=== PATIENT | female | born 1985 | race African-American/Black ===

== ENCOUNTER 2020-08-23 17:50 | Emergency (ER) | payer OTHER, SELFPAY ==
[2020-08-23 18:00] VITALS: BP 139/99; PULSE 112; RESP 16; O2SAT 100
--- NOTE | 2020-08-23 18:10 | PC.NURSE ---
in br to obtain ua spec.
--- NOTE | 2020-08-23 18:14 | ED.FEMALEGU ---
HPI - Female Genitourinary General Chief complaint: Nausea/Vomiting/Diarrhea Stated complaint: Nausea,Headahe Time Seen by Provider: 08/23/20 18:14 Source: patient Mode of arrival: ambulatory Limitations: no limitations History of Present Illness HPI Narrative: Jillian Boles is a 35-year-old female with PMH of HTN who comes to [facility] for determination of as she is taken 2 home tests and one positive or negative she is feeling nauseated x1 week. Patient denies fever denies vomiting denies diarrhea, she is a G3,P3; states she is having some discharge from her nipples Related Data Home Medications Medication Instructions Recorded Confirmed metoprolol tartrate 08/23/20 Allergies Allergy/AdvReac Type Severity Reaction Status Date / Time No Known Allergies Allergy Unverified 09/07/17 10:13 Review of Systems Review of Systems: Narrative: CONSTITUTIONAL: Denies fever, chills, sweats. EYES: Denies visual changes, redness, discharge. ENT: Denies rhinorrhea, congestion, sore throat, otalgia. CARDIOVASCULAR: Denies chest pain, palpitations, edema. RESPIRATORY: Denies dyspnea, wheezing, cough GASTROINTESTINAL: Denies abdominal pain, has nausea, no vomiting, diarrhea. GENITOURINARY: Denies dysuria, hematuria, abnormal discharge SKIN: Denies rash or itching. NEUROLOGIC: Denies numbness, or focal weakness. PSYCHIATRIC: Denies anxiety or depression. [facility] Past Medical History Medical History Hypertension Family History Family History (Updated 08/23/20 @ 18:27 by Cat Jain CNP) Mother Hypertension Social History Social History (Updated 08/23/20 @ 18:27 by Cat Jain CNP) Smoking status: Never smoker Alcohol intake: never Comments At time of signature, I agree with nursing past medical, surgical, social and family history. There is no relevant family history pertinent to the presenting complaint. Exam Narrative: Exam Narrative: GENERAL: This is a well-nourished, well-developed patient, in mild distress. HEAD: normocephalic, atraumatic. EYES: Sclera clear/white. Vision is grossly intact. EARS: External ears normal, Hearing grossly intact. NOSE: External nose normal without nasal discharge, nares without redness, no rhinorrhea. THROAT: Mucous membranes moist, NECK: Neck supple, CARDIOVASCULAR: Regular rate and rhythm without murmurs, gallops, or rubs. RESPIRATORY: Clear to auscultation. Breath sounds equal bilaterally. No wheezes, rales, or rhonchi. GASTROINTESTINAL: Abdomen soft SKIN: warm, intact with no suspicious lesions or rash, good texture and turgor. NEURO: awake, alert, and oriented to person, place and time. There were no obvious focal neurologic abnormalities. Steady gait EXTREMITIES: Normal range of motion. BACK: Nontender without deformity Course Course Emergency Course: Patient comes for assessment of nausea x1 week with discharge from nipples test is negative as is her UA Patient given Zofran at discharge but told to follow-up with TECHNOLOGY ADVISOR or primary care physician for differential diagnosis of endocrine versus breast cancer Vital Signs Vital signs: Vital Signs Pulse Rate 112 H 08/23/20 18:00 Respiratory Rate 16 08/23/20 18:00 Blood Pressure 139/99 H 08/23/20 18:00 Pulse Oximetry 100 08/23/20 18:00 Pulse Rate 112 H 08/23/20 18:00 Respiratory Rate 16 08/23/20 18:00 Blood Pressure 139/99 H 08/23/20 18:00 Pulse Oximetry 100 08/23/20 18:00 MDM - Female Genitourinary Differential Diagnosis Differential diagnosis: Likely urinary tract infection, cervicitis, cystitis and other () Lab Data Labs: UCG Bedside Result Negative Reference Range: Negative Urine Glucose Negative Reference Range: Negative Urine Bilir
== END 2020-08-23 18:40 | disposition home or self-care (01) ==
PROVIDERS: Emergency Provider Nurse Practitioner
DX: Z32.02 Encounter for pregnancy test, result negative (principal); R11.0 Nausea; I10 Essential (primary) hypertension
CPT/HCPCS: 81003; 81025; 99213; G0463

== ENCOUNTER 2022-01-26 13:07 | Emergency (ER) | payer OTHER, SELFPAY ==
[2022-01-26 13:15] VITALS: BP 127/96; PULSE 97; RESP 18; TEMP 36.7; O2SAT 100
--- NOTE | 2022-01-26 13:27 | ED.GENADULT ---
HPI - General Adult General Chief complaint: Unspecified Stated complaint: [place]tox Cramp Time Seen by Provider: 01/26/22 13:27 Source: patient Mode of arrival: ambulatory Limitations: no limitations History of Present Illness HPI narrative: 36 yo F presents with c/o several years of spasming, cramping pain to vaginal area extending to rectum and also lower back around tailbone area. Recently saw a new STOCK OR DELIVERY CLERK who ordered a pelvic ultrasound for her that she is getting in two days. States that doesn't help to see what is wrong with my rectal area . Reports no pain with sitting. Spasms/cramping come on unexepectedly and cannot reproduce them on her own. No pain with intercourse. BMs normal. No pain with BM. No pain at this time. hx of 3 csections. Thinks pain started after last c section. Has discussed this with her PCP who prescribed her a liquid medicine but her sister who is a nurse told her not to take it because it would not do anything for her. pt ambulatory with steady gait. all systems reviewed and negative except as noted above. Related Data Home Medications Medication Instructions Recorded Confirmed metoprolol tartrate 25 mg tablet 25 mg PO BID 08/23/20 01/26/22 magnesium oxide 400 mg (241.3 mg 400 mg DAILY 01/26/22 01/26/22 magnesium) tablet Allergies Allergy/AdvReac Type Severity Reaction Status Date / Time No Known Allergies Allergy Verified 01/26/22 13:22 Review of Systems Review of Systems: CONSTITUTIONAL: Denies fever, chills, or sweats. EYES: Denies visual changes, redness, or discharge. ENT: Denies rhinorrhea, congestion, sore throat, or otalgia. CARDIOVASCULAR: Denies chest pain, palpitations, or edema. RESPIRATORY: Denies cough or dyspnea. GASTROINTESTINAL: Denies abdominal pain, nausea, vomiting, or diarrhea. GENITOURINARY: Denies dysuria or hematuria. SKIN: Denies rash or itching. MUSCULOSKELETAL: Denies back pain, joint pain, or myalgia. Reports spasm/cramping to perineal and rectal area. NEUROLOGIC: Denies headache, numbness, or weakness. PSYCHIATRIC: Denies anxiety or depression. All other systems reviewed are negative, except as documented in HPI. [facility] Past Medical History Medical History Hypertension Family History Family History (Updated 08/23/20 @ 18:27 by Cat Jain CNP) Mother Hypertension Social History Social History (Updated 08/23/20 @ 18:27 by Cat Jain CNP) Smoking status: Never smoker Alcohol intake: never Comments At time of signature, agree with nursing past medical, surgical, social and family history. There is no relevant family history pertinent to the presenting complaint. Exam Narrative: GENERAL: This is a well-nourished, well-developed patient, in no apparent distress. HEAD: normocephalic, atraumatic. EYES: PERRL. Sclera clear/white. Vision is grossly intact. EARS: External ears normal NOSE: External nose normal NECK: Neck supple, non-tender without lymphadenopathy, masses or thyromegaly. CARDIOVASCULAR: Regular rate and rhythm without murmurs, gallops, or rubs. RESPIRATORY: Clear to auscultation. Breath sounds equal bilaterally. No wheezes, rales, or rhonchi. GASTROINTESTINAL: Abdomen soft, non-tender, nondistended. Bowel sounds are active. No hepato-splenomegaly, or palpable masses. No guarding. No external hemorrhoids noted. No tenderness around rectum on palpation. No fluctuance, erythema concerning for abscess. SKIN: warm, Dry, intact with no suspicious lesions or rash, good texture and turgor. NEURO: awake, alert, and oriented to person, place and time. There were no obvious focal neurologic abnormalities. EXTREMITIES: No joint tenderness, effusion, or edema noted. Course Course Level of Care: Express Care Visit Vital Signs Vital signs: Vital Signs Temperature 36.7 C 01/26/22 13:15 Pulse Rate 97 01/26/22 13:15 Respiratory Rate 18 01/26/22 13:15 Blood Press
== END 2022-01-26 13:45 | disposition home or self-care (01) ==
PROVIDERS: Emergency Provider Nurse Practitioner Family; PCP Internal Medicine Infectious Disease
DX: K62.89 Other specified diseases of anus and rectum (principal); M54.50 Low back pain, unspecified; I10 Essential (primary) hypertension
CPT/HCPCS: 99213; G0463

== ENCOUNTER 2023-01-20 12:10 | Emergency (ER) | payer OTHER, SELFPAY ==
[2023-01-20 12:13] VITALS: BP 151/90; PULSE 103; RESP 16; TEMP 37.1; O2SAT 99
--- NOTE | 2023-01-20 14:36 | PC.NURSE ---
pt called for room, pt not in lobby
== END 2023-01-20 14:36 | disposition left against medical advice (07) ==
LOC: ANHED 14:38
PROVIDERS: PCP Internal Medicine Infectious Disease
DX: R10.9 Unspecified abdominal pain (principal)
CPT/HCPCS: 99199

== ENCOUNTER 2023-02-02 11:51 | Emergency (ER) | payer OTHER, SELFPAY ==
[2023-02-02 12:12] VITALS: BP 131/89; PULSE 85; RESP 16; TEMP 36.6; O2SAT 100
--- NOTE | 2023-02-02 12:13 | ED.URI ---
HPI - URI/Sore Throat General Chief Complaint: Upper Respiratory Infection Stated Complaint: chest pain, throat pain, head pain Source: patient and RN notes reviewed History of Present Illness HPI Narrative: 37 yo F presents to urgent care with complaints of sore throat, CUI, and fatigue x 3 days. Pt reports nausea, denies any vomiting and reports a little diarrhea. Pt states she will feel short of breath because of her throat, stating it just hurts when she breathes in. Denies any chest pain, ear pain, or abdominal pain. Related Data Home Medications Medication Instructions Recorded Confirmed metoprolol tartrate 25 mg tablet 25 mg PO BID 08/23/20 01/26/22 magnesium oxide 400 mg (241.3 mg 400 mg DAILY 01/26/22 02/02/23 magnesium) tablet Allergies Allergy/AdvReac Type Severity Reaction Status Date / Time No Known Allergies Allergy Verified 01/26/22 13:22 Review of Systems Review of Systems: Pertinent positives and pertinent negatives per HPI. [facility] Past Medical History Medical History Hypertension Family History Family History (Updated 08/23/20 @ 18:27 by Cat Jain, KHADRA) Mother Hypertension Social History Social History (Updated 08/23/20 @ 18:27 by Cat Jain, KHADRA) Smoking status: Never smoker Alcohol intake: never Comments At the time of my signature, I reviewed and agree with the nursing past medical, surgical, social, and family history. There is no relevant family history pertinent to the patient complaint. Exam Narrative: GENERAL: This is a well-nourished, well-developed patient, in no apparent distress. HEAD: normocephalic, atraumatic. EYES: Sclera clear/white. Vision is grossly intact. EARS: External ears normal, auditory canals clear and without drainage. Hearing grossly intact. NOSE: External nose normal with no obvious nasal discharge, nares without redness, no rhinorrhea. THROAT: Mucous membranes moist, posterior pharynx erythemic. NECK: Neck supple, non-tender without lymphadenopathy, masses or thyromegaly. CARDIOVASCULAR: Regular rate and rhythm without murmurs, gallops, or rubs. RESPIRATORY: Clear to auscultation. Breath sounds equal bilaterally. No wheezes, rales, or rhonchi. GASTROINTESTINAL: Abdomen soft, non-tender, nondistended. Bowel sounds are active. No hepato-splenomegaly, or palpable masses. No guarding. SKIN: warm, intact with no suspicious lesions or rash, good texture and turgor. NEURO: awake, alert, and oriented to person, place and time. There were no obvious focal neurologic abnormalities. Course Course Level of Care: Express Care Visit Vital Signs Vital signs: Vital Signs Temperature 97.8 F 02/02/23 12:12 Pulse Rate 85 02/02/23 12:12 Respiratory Rate 16 02/02/23 12:12 Blood Pressure 131/89 02/02/23 12:12 Pulse Oximetry 100 02/02/23 12:12 Oxygen Delivery Room Air 02/02/23 12:12 Temperature 97.8 F 02/02/23 12:12 Pulse Rate 85 02/02/23 12:12 Respiratory Rate 16 02/02/23 12:12 Blood Pressure 131/89 02/02/23 12:12 Pulse Oximetry 100 02/02/23 12:12 Oxygen Delivery Room Air 02/02/23 12:12 Reviewed MDM - URI/Sore Throat MDM Narrative Medical decision making narrative: Rapid strep is negative in the office; however we will send to the lab for confirmation; there is a small percentage chance that it can come back positive; if it is, we will call you in 2-3days; and your prescription will be call in to your pharmacy. However, there is NO indication for antibiotic at this time. -Increase your fluids and Vitamin C. -Oral rinses such as: Salt water gargles and/or may use topical anesthetic (eg. Chloraseptic spray) or lozenges to relieve dryness or throat pain. -Take tylenol and ibuprofen as needed for pain and fever as directed. -Frequent hand washing or hand director group sales is one of the best ways to prevent spread of infection. -F
== END 2023-02-02 12:35 | disposition home or self-care (01) ==
PROVIDERS: Emergency Provider Nurse Practitioner Family; PCP Internal Medicine Infectious Disease
DX: B34.9 Viral infection, unspecified (principal); J02.9 Acute pharyngitis, unspecified; I10 Essential (primary) hypertension
CPT/HCPCS: 87081; 87880; 99213; G0463

== ENCOUNTER 2023-07-07 10:59 | Emergency (ER) | payer OTHER, SELFPAY ==
--- NOTE | ~2023-07-07 | XR_ITS ---
EXAMINATION: XR lumbar spine 2-3V DATE: 07/07/2023 12:46 INDICATION: Right-sided low back pain post fall TECHNIQUE: Anteroposterior and lateral views of the lumbar spine, and cone-down lateral view of the l umbosacral junction were obtained. COMPARISON: None. FINDINGS: 4 degrees thoracolumbar dextrocurvature. Sagittal alignment is normal. Partially lumbarized S1 segmen t with 5 more cephalad nonrib-bearing lumbar segments. Vertebral body heights are normal. No fracture s identified. Disc spaces are normal. No significant facet, sacroiliac or hip osteoarthritis apprecia selvin. A few phleboliths in the pelvis. IMPRESSION: 1. Negligible thoracolumbar dextrocurvature is otherwise unremarkable lumbar spine radiographs. Reviewed, dictated and finalized at location A. [facility] IMPRESSION: 1. Negligible thoracolumbar dextrocurvature is otherwise unremarkable lumbar sp ine radiographs.
--- NOTE | 2023-07-07 11:01 | ED.FALL ---
HPI - Fall General Chief Complaint: Back Pain/Injury Stated Complaint: Fall Time Seen by Provider: 07/07/23 11:00 Source: patient Mode of arrival: ambulatory Limitations: no limitations History of Present Illness HPI Narrative: Jillian is a 37-year-old female patient presenting to the clinic today with complaints of a ground level fall slipping on ice on Wednesday and fell onto her back. She is reporting right lower back pain. States that she is having some muscle spasms as well. Denies any blood in her urine. Denies any her head or any loss of consciousness or neck pain. No saddle anesthesia or loss of bowel or bladder. Related Data Home Medications Medication Instructions Recorded Confirmed metoprolol tartrate 25 mg tablet 25 mg PO BID 08/23/20 01/26/22 magnesium oxide 400 mg (241.3 mg 400 mg DAILY 01/26/22 02/02/23 magnesium) tablet Allergies Allergy/AdvReac Type Severity Reaction Status Date / Time No Known Allergies Allergy Verified 01/26/22 13:22 Review of Systems Review of Systems: Pertinent positives per HPI. Patient denies any fever, chills, rash, headache, visual changes, dizziness, cough, runny nose, sore throat, shortness of breath, chest pain, palpitations, nausea, vomiting, diarrhea, constipation, abdominal pain, or any urinary issues. [facility] Past Medical History Medical History Hypertension Family History Family History Mother Hypertension Social History Social History Smoking status: Never smoker Alcohol intake: never Comments At the time of my signature, I reviewed and agree with the nursing past medical, surgical, social, and family history. There is no relevant family history pertinent to the patient complaint. Exam Narrative: General: Well-developed, well nourished, in no apparent distress Head: Normocephalic, atraumatic. Cardio: Regular rate and rhythm, s1 and s2 normal, no murmur appreciated. Resp: Clear to auscultation bilaterally, no rhonchi, rales, wheezing or rubs. Abdomen: Soft, pliable, bowel sounds present in all quadrants, non-tender to palpation, no organomegly, no CVAT tenderness. Musculoskeletal: No deformity, tender to palpation over the right lower back, negative straight leg test bilaterally, patellar reflexes 2+ bilaterally, grossly normal range of motion, muscle strength strong and equal, peripheral pulse strong, no edema, no cyanosis, normal gait and station Course Course Emergency Course: Portions of this record may have been created with voice recognition software. Level of Care: Express Care Visit Vital Signs Vital signs: Vital Signs Temperature 36.7 C 07/07/23 11:59 Pulse Rate 93 07/07/23 11:59 Respiratory Rate 16 07/07/23 11:59 Blood Pressure 143/93 H 07/07/23 11:59 Pulse Oximetry 100 07/07/23 11:59 Oxygen Delivery Room Air 07/07/23 11:59 Temperature 36.7 C 07/07/23 11:59 Pulse Rate 93 07/07/23 11:59 Respiratory Rate 16 07/07/23 11:59 Blood Pressure 143/93 H 07/07/23 11:59 Pulse Oximetry 100 07/07/23 11:59 Oxygen Delivery Room Air 07/07/23 11:59 Vital signs reviewed MDM - Fall MDM Narrative Medical decision making narrative: At the time of visit patient is resting comfortably on the exam table. Patient appears to be nontoxic. Diagnostics: X-rays of lumbar spine negative Labs: UA positive for protein, nitrates, and blood. Patient does report some lower abdominal discomfort. Will treat for urinary tract infection. Plan: Prescription for Macrobid was sent to the pharmacy to treat UTI, x-ray was negative for any sign of fracture or malalignment. Will send prescription for naproxen and patient has Robaxin home that she may take. Supportive measures were discussed with the patient and they voiced unders
[2023-07-07 11:59] VITALS: BP 143/93; PULSE 93; RESP 16; TEMP 36.7; O2SAT 100
== END 2023-07-07 13:24 | disposition home or self-care (01) ==
PROVIDERS: Emergency Provider Nurse Practitioner Family; PCP Internal Medicine Infectious Disease
DX: N39.0 Urinary tract infection, site not specified (principal); B96.20 Unspecified Escherichia coli [E. coli] as the cause of diseases classified elsewhere; M54.50 Low back pain, unspecified; W00.0XXA Fall on same level due to ice and snow, initial encounter; I10 Essential (primary) hypertension
CPT/HCPCS: 72100; 81003; 81025; 87077; 87086; 87186; 99213; G0463

== ENCOUNTER 2024-07-10 14:03 | Emergency (ER) | payer MEDICAID, SELFPAY ==
--- NOTE | ~2024-07-10 | US_ITS ---
EXAMINATION: US OB <=14 wk fetus w TV DATE: 07/10/2024 16:45 INDICATION: . Abdominal cramping. TECHNIQUE: Real-time transabdominal and transvaginal pelvic ultrasound was performed. COMPARISON: None. FINDINGS: TRANSABDOMINAL ULTRASOUND: The uterus measures 9.7 x 5.2 x 6.5 cm. TRANSVAGINAL ULTRASOUND: There is an intrauterine gestational sac. A yolk sac is identified. The fet al crown rump length measures 6 mm, which correlates with an estimated gestational age of 6 weeks and 3 day(s) (+/-) 4 day(s). heart motion is identified measuring 82 beats per minute (bpm) by M-m ode Doppler. The right ovary measures 3.0 x 2.3 x 2.6 cm. The left ovary is not visualized. There is no free fluid in the pelvis. IMPRESSION: 1. Single living intrauterine gestation with estimated date of delivery of 03/11/2025. 2. heart rate of 82 bpm. Reviewed, dictated and finalized at location A. EN PRINTING PRESS OPERATOR IMPRESSION: 1. Single living intrauterine gestation with estimated date of delivery of 02/13. 2. heart rate of 82 bpm.
[2024-07-10 14:22] VITALS: BP 129/84; PULSE 87; RESP 20; TEMP 36.5
--- OUTSIDE RECORDS SUMMARY | 2024-07-10 14:49 | XMS_ITS | CONTINUITY OF CARE DOCUMENT ---
Author Name ariane thakkar Address Unknown Organization [facility] Address [address] [place] [address] Phone [phone] Care Team Providers Care Online Journalist Name Role Phone Laureen Noble MD Unavailable [phone] THALIA MCDONALD MD Unavailable [phone] THALIA MCDONALD MD Unavailable [phone] PROBLEMS Condition Status Date Provider Notes Family History of Hypertension: completed - Sa leatha Noble MD Sinus tachycardia active Jam Adamson MD HTN essential active Jam Adamson MD Shortness of breath active Laureen quach MD Palpitations active Laureen Noble MD Fatigue active Laureen Noble MD Syncope active Laureen Noble MD Dizziness active Laureen Noble MD Back pain active Laureen Noble MD Sleep disorder active Sae Segura ENCOUNTERS Date Type Provider Location Encounter Diag nosis - In-person encounter Office Visit Laureen Noble MD [facility] - In-person encounter Office Visit Laureen Noble MD [facility] Sleep disorder - In-person encounter Office Visit Laureen Noble MD [facility] - In-person encounter Office Visit Laureen Noble MD [facility] - In-person encounter Office Visit Laureen Noble MD [facility] Back pain - In-person encounter Office Visit Laureen Noble MD [facility] Family History of Hypertension:Shortness of breathPalpitationsFatigueSyncopeDizziness - In-person encounter Office Visit Jam Adamson MD [facility] Sinus tachycardiaHTN essential VITAL SIGNS Date Observation Value Provider Body Mass Index (Ratio) 24.09 kg/m2 German Noble MD blood pressure, diastolic -1 mm[Hg] Aneta nkLogic blood pressure, systolic 131 mm[Hg] Hannah kLogic blood pressure, diastolic 94 mm[Hg] Va lertylor Mak blood pressure, systolic 131 mm[Hg] Simi joseph Obdulio weight E&M 136 [lb_av] Charis Obdulio pulse rate 93 /min Charis Obdulio respiratory rate E&M 16 /min Charis Obdulio oxygen saturation, oximetry 99 % Charis Obdulio blood pressure, cuff size large Va lerie Obdulio height E&M 63 [in_i] Charis Obdulio Body Mass Index (Ratio) 24.09 kg/m2 Sae Segura blood pressure, diastolic 93 mm[Hg] Li nkLogic blood pressure, systolic 134 mm[Hg] Hannah kLogic blood pressure, cuff size regular Ja rret blood pressure, diastolic 93 mm[Hg] Ja rret blood pressure, systolic 134 mm[Hg] Jar ret pulse rate 91 /min Lizandro y oxygen saturation, oximetry 95 % Lizandro respiratory rate E&M 14 /min Lizandro weight E&M 136 [lb_av] Lizandro y height E&M 63 [in_i] Lizandro y Body Mass Index (Ratio) 24.27 kg/m2 German Noble MD blood pressure, diastolic 80 mm[Hg] Li nkLogic blood pressure, systolic 114 mm[Hg] Hannah kLogic blood pressure, diastolic 80 mm[Hg] Ca therine Falcon blood pressure, systolic 114 mm[Hg] Cat herine Falcon oxygen saturation, oximetry 90 % Madonna Falcon pulse rate 91 /min Madonna Falcon respiratory rate E&M 16 /min Catheri ne Leopoldo weight E&M 137 [lb_av] Madonna Falcon blood pressure, cuff size large Ca therine Falcon height E&M 63 [in_i] Madonna Falcon Body Mass Index (Ratio) 20.94 kg/m2 Will jayramesh Batista blood pressure, diastolic 85 mm[Hg] Ming Jacobs blood pressure, systolic 126 mm[Hg] Chelly Jacobs oxygen saturation, oximetry 97 % Figueroa Jacobs respiratory rate E&M 18 /min Salinas Jacobs pulse rate 105 /min Figueroa Juárez nsginger weight E&M 118.2 [lb_av] Figueroa cohenon height E&M 63 [in_i] Figueroa garciaon blood pressure, diastolic 88 mm[Hg] Me epps Aditya blood pressure, systolic 126 mm[Hg] Natalie la nena Burgess pulse rate 84 /min Adri Burgess oxygen saturation, oximetry 95 % Adri Burgess respiratory rate E&M 15 /min Adri [facility] Body Mass Index (Ratio) 20.90 kg/m2 [facility] weight E&M 118 [lb_av] Adri Burgess blood pressure, diastolic 80 mm[Hg] Estevan betancourt Raymond RN blood pressure, systolic 120 mm[Hg] Julio Raymond RN blood pressure, diastolic 97 mm[Hg] Me epps [facility] blood pressure, systolic 134 mm[Hg] Natalie deutsch [facility] pulse rate 118 /min Adri [facility] oxygen saturation, oximetry 97 % Adri [facility] respiratory rate E&M 16 /min Adri [facility] Body Mass Index (Ratio) 20.37 kg/m2 [facility] weight E&M 115 [lb_av] Adri [facility] blood pressure, diastolic 99 mm[Hg] Me epps [facility] blood pressure, systolic 149 mm[Hg] Natalie deutsch [facility] pulse rate 108 /min Adri [facility] oxygen saturation, oximetry 98 % Adri [facility] respiratory rate E&M 14 /min Adri [facility] Body Mass Index (Ratio) 20.90 kg/m2 [facility] weight E&M 118 [lb_av] Adri [facility] height E&M 63 [in_i] Adri [facility] ALLERGIES No Known Drug Allergies RESULTS Date Observation Value Provider Reference Range Interpretation Location 9 trichomonas vaginalis, urine None seen [facility] 9 urine crystals, microscopic None seen [facility] 9 casts, urine, microscopic None seen [facility] 9 mucus on urinalysis None seen [facility] Not Estab. 9 bacteria, urine microscopy Few [facility] None seen / Few 9 epithelial cells, urine 1 - 10 / lpf [facility] 0 - 10 /lpf (non renal) 9 RBC urine by microscopy 11 - 30 /hpf [facility] 0 - 3 /hpf 9 WBC urine on microscopy 0 - 5 /hpf [facility] 0 - 5 /hpf 9 Nitrite Urine Negative [facility] Negative 9 urobilinogen, urine 1.0 E.U./dL mg/dl [facility] 0.2 - 1.0 9 specific gravity, urine 1.020 [facility] 1.001 - 1.035 9 KETONES, URINE Negative [facility] Negative 9 bilirubin, urine Negative [facility] Negative 9 Glucose Urine Negative [facility] Negative 9 clarity, urine, point Clear [facility] Yellow urine color Yellow [facility] yellow to jesus HISTORY OF MEDICATION USE Medication Status Instructions Dates Provider Indications Com ments metoprolol tartrate 25 mg tablet active Take 1 tablet by mouth twice daily Sae Aharaceli metoprolol tartrate 25 mg tablet completed Take 1 tablet by mouth twice a day Take 1 tablet by mouth twice daily - Carol Schwartz magnesium oxide 400 mg magnesium tablet active Take 1 tablet by mouth twice a day Sae Segura metoprolol tartrate 25 mg tablet completed Take 1 tablet by mouth twice a day - Fabby Campbell magnesium oxide 400 mg (241.3 mg magnesium) tablet completed 1 tablet by mouth twice a day - Julio Andrade RN TENORETIC 100 100-25 MG ORAL TABLET completed one a day - Laureen Noble MD SOCIAL HISTORY Date Observation Value Provider smoking status Never smoker Brooklynn zee CARD MOUNTER Exercise counseling Yes Brooklynn Fuentes CARD MOUNTER smoking status Never smoker Sae Segura social history E&M S moking History: P atnito has never smoked. Laureen Noble MD social history reviewed E&M revi ewed - no changes required Laureen Noble MD smoking status Never smoker Madonna quach number of grandchildren Laureen Batista social history reviewed E&M revi ewed - no changes required Viral Batista social history E&M S moking History: Pavithra whitmore has never smoked. Viral Batista smoking status Never smoker Figueroa Cleaning social history reviewed E&M revi ewed - no changes required Laureen Noble MD social history E&M Smoking Histo ry: Pavithra whitmore has never smoked. Laureen Noble MD smoking status Never smoker Adri betancourt smoking status Never smoker Julio Andrade RN social history reviewed E&M revi ewed - no changes required Laureen Noble MD social history E&M Smoking Histo ry: Patient has never smoked. Laureen Noble MD smoking status Never smoker Adri betancorut social history reviewed E&M revi ewed - no changes required Jam Adamson MD smoking status Never smoker Adri betancourt FUNCTIONAL STATUS Date Observation Value Provider periodic limb movement index absent (0) Julio Andrade RN FAMILY HISTORY Family Member Condition Mother Family History of Hy pertension: INSURANCE PROVIDERS Payer name Policy type / Coverage type [facility] ID [place] MEDICAID Medicaid [id number] ADVANCE DIRECTIVES Name Date DISCUSSED - NO DECISION MADE TREATMENT PLAN Date Name Performer [id number],C, H er updated medication list for this problem includes: Metoprolol Tartrate 25 Mg Tablet (Metoprolol tartrate) ..... Take 1 tablet by mouth twice a day Laureen Noble MD [id number],C, H er updated medication list for this problem includes: Metoprolol Tartrate 25 Mg Tablet (Metoprolol tartrate) ..... Take 1 tablet by mouth twice a day Laureen Noble MD [id number],C, B P today: 114/80 P rior BP: 126/85 (09/10/2017) Prior 10 Yr Risk Heart Disease: Not enough information (03/06/2016) Her updated medication list for this problem includes: Metoprolol Tartrate 25 Mg Tablet (Metoprolol tartrate) ..... Take 1 tablet by mouth twice a day Laureen Noble MD [id number],B, N o recurrence Laureen Noble MD Cardiology:reviewed high salt foods and what to avoid/limit BP today: 131/94 P rior BP: 134/93 (08/27/2023) Prior 10 Yr Risk Heart Disease: Not enough information (03/06/2016) H er updated medication list for this problem includes: Metoprolol Tartrate 25 Mg Tablet (Metoprolol tartrate) ..... Take 1 tablet by mouth twice daily Brooklynn Fuentes NP Cardiology:improved H er updated medication list for this problem includes: Metoprolol Tartrate 25 Mg Tablet (Metoprolol tartrate) ..... Take 1 tablet by mouth twice daily Brooklynn Fuentes NP Cardiology:improved Brooklynn leblanc NP Cardiology:no recurrence Kevin Fuentes NP Cardiology:no recurrence Kevin Fuentes NP Cardiology:chronic unchanged Izabel Fuentes NP Electrophysiology: O rders: S leep Study Home (CPT-91029) 9 9215 HIGH 40-54min (CPT-73365) Sae Ellisonmedzaguanaco Electrophysiology Sae Ellisonmedzai Electrophysiology:no recurrence Sae Ellisonmedzai Electrophysiology:ad vised pt to resume Magnesium 400 mg Sae Ellisonmedzai Electrophysiology: B P today: 134/93 P rior BP: 114/80 (11/19/2021) Prior 10 Yr Risk Heart Disease: Not enough information (03/06/2016) Her updated medication list for this problem includes: Metoprolol Tartrate 25 Mg Tablet (Metoprolol tartrate) ..... Take 1 tablet by mouth twice daily. make follow up appt Orders: E KG (CPT-75372) 9 9215 HIGH 40-54min (CPT-72812) [facility] Electrophysiology: O rders: H olter Monitor 48 hr (CPT-25283) C omplete Echo (80867) 9 9215 HIGH 40-54min (CPT-39338) [facility] Electrophysiology:No real SOB, w ill check echo Sae [facility] Electrophysiology: H er updated medication list for this problem includes: Metoprolol Tartrate 25 Mg Tablet (Metoprolol tartrate) ..... Take 1 tablet by mouth twice a day Laureen Noble MD Electrophysiology: H er updated medication list for this problem includes: Metoprolol Tartrate 25 Mg Tablet (Metoprolol tartrate) ..... Take 1 tablet by mouth twice a day Laureen Noble MD Electrophysiology: B P today: 114/80 P rior BP: 126/85 (09/10/2017) Prior 10 Yr Risk Heart Disease: Not enough information (03/06/2016) Her updated medication list for this problem includes: Metoprolol Tartrate 25 Mg Tablet (Metoprolol tartrate) ..... Take 1 tablet by mouth twice a day Laureen Noble MD Electrophysiology: N o recurrence Laureen Noble MD Electrophysiology faxed 4-3, lo Viral Batista Electrophysiology faxed 4-3, lo Viral Batista Electrophysiology fa xed 4-3, lo: B P today: 126/85 P rior BP: 126/88 (04/10/2016) Prior 10 Yr Risk Heart Disease: Not enough information (03/06/2016) Viral Batista Electrophysiology faxed 4-3, lo: Check echo. Viral Batista Cardiology faxed 04/21/16:BP today: 126/88 P rior BP: 120/80 (03/06/2016) Her updated medication list for this problem includes: Metoprolol Tartrate 25 Mg Oral Tabs (Metoprolol tartrate) ..... Take 1 tablet twice a day. Laureen Noble MD Cardiology faxed 04/21/16:No furt her syncopal episodes Laureen Noble MD Cardiology faxed 04/21/16 Laureen Noble MD Cardiology faxed 04/21/16 Laureen Noble MD Cardiology faxed 04/21/16:She has pain in her lower back at rest that increases with exertion. Etiology could be bone spur, herniated disc. No suggestion of sciatica. Orders: X -Ray, Other (CPT-82073) [facility] idney Ultrasound (CPT-34778) Laureen Noble MD Cardiology:will rx tenroretic Melgar ameena Adamson MD Cardiology:since , nati Adamson MD Date Name Complete Echo Sleep Study Home Holter Monitor 48 hr Complete Echo TSH, free T4, total T3 COMPREHENSIVE METABO LIC PANEL, W/EGFR LIPID PANEL CBC (INCLUDES DIFF/P LT) Holter Monitor 24 Hr Complete Echo ZIO Holter Test, Urin e URINALYSIS, COMPLETE Kidney Ultrasound X-Ray, Other DLCO - 19446 FRC - 19726 FVC - 26030 THYROID PANEL WITH T SH, 3RD GENERATION IRON, TOTAL VITAMIN B12 RETICULOCYTE COUNT IRON AND TOTAL IRON BINDING CAPACITY FOLATE, SERUM FERRITIN STR - Routine Mobile Cardiac Tele Renal Artery Duplex VITAMIN D, 25-HYDROX Y, LC/MS/MS FERRITIN IRON AND TOTAL IRON BINDING CAPACITY VITAMIN B12 LIPID PANEL C-REACTIVE PROTEIN Complete Echo Holter Monitor 24 Hr PROBNP, N TERMINAL THYROID PANEL WITH T SH, 3RD GENERATION HISTORY OF PROCEDURES Procedure Date Procedure Name Provider Procedure Notes S tatus Schedule Followup Laureen collins MD [address] Noble completed EKG Laureen quach MD completed EKG Laureen quach MD completed ZIO Holter Hookup Laureen collins MD completed EKG Laureen quach MD completed Ultrasound, retroperitoneal, complete Laureen Noble MD completed EKG Laureen quach MD completed SNOMED-CT: [id number] Current Medications Documented Laureen Noble MD completed Stress EKG Laureen quach MD completed FVC - 33925 Laureen quach MD completed FRC - 87790 Laureen quach MD completed DLCO - 50328 Laureen quach MD completed Event Monitor Lin Oshea completed Ambulatory BP Laureen quach MD 24 hours completed EKG Laureen quach MD completed SNOMED-CT: [id number] Current Medications Documented Laureen Noble MD completed EKG Jam Adamson MD complete d SNOMED-CT: [id number] Current Medications Documented Jam Adamson MD completed
--- OUTSIDE RECORDS SUMMARY | 2024-07-10 14:49 | XMS_ITS | Data Portability ---
Author Organization MORGAN Ceasar KEVIN Address [address] [facility] [place] [address] Assessment No assessment recorded. Plan of Treatment Reminders Order Date Submit Date Provider Last Modified By Organization Details Last Modified Time Details Appointments None recorded. Lab urinalysi s, dipstick 2016 017 te In-Office Order, Internal Use Only DO Not Attach Compendium DO Not Attach Compendium, Do Not Delete/merge, [id number] 7 12:34:54 test, urine 2016 017 te In-Office Order, Internal Use Only DO Not Attach Compendium DO Not Attach Compendium, Do Not Delete/merge, [id number] 7 12:34:54 pap, IG + HPV, cervical 2016 017 [facility], [facility], [address], [place], [address], 7 16:14:17 bacterial vaginosis + vaginitis panel, vaginal - Z11.3 2016 017 [facility], [address], [address], [place], [address], 7 06:14:37 HSV (1+2) DNA, qual, PCR, unspecifi ed specimen - Z11.3 2016 017 [facility], [address], [address], [place], [address], 7 06:14:38 culture, vaginal/r ectal, streptoco ccus group B - Z11.3 2016 017 [facility], [address], [address], [place], [address], 7 06:14:38 urinalysi s, dipstick 2017 [address] [facility] In-Office Order, Internal Use Only DO Not Attach Compendium DO Not Attach Compendium, Do Not Delete/merge, [id number] 8 16:42:08 test, urine 2017 [address] [facility] In-Office Order, Internal Use Only DO Not Attach Compendium DO Not Attach Compendium, Do Not Delete/merge, [id number] 8 16:42:08 pap, IG + HPV, cervical - please use Z11.51 in addition to code above for HPV testing. 2017 018 [facility], 2022 Tobias Parnell, [address], [address], 8 16:13:35 bacterial vaginosis + vaginitis panel, vaginal - Z11.3, Z20.0 2017 018 [facility], [address] [place] [address], [address], [place], [address], 8 16:18:29 HSV (1+2) DNA, qual, PCR, unspecifi ed specimen - Z11.3, Z20.2 2017 018 [facility], [address] [place] [address], [address], [place], [address], 8 16:18:30 culture, vaginal/r ectal, streptoco ccus group B - Z11.3, Z20.2 2017 018 [facility], [address], [address], [place], [address], 8 16:18:30 culture, urine 2018 019 [facility], [address] [facility], [place], [address], 9 11:38:35 pap, IG + HPV, cervical - please use Z11.51 in addition to code above for HPV testing. 2018 019 [facility], 2022 Tobias Parnell, [address], [address], 9 06:21:18 test, urine 2018 019 te In-Office Order, Internal Use Only DO Not Attach Compendium DO Not Attach Compendium, Do Not Delete/merge, [id number] 9 14:31:53 urinalysi s, dipstick 2018 019 te In-Office Order, Internal Use Only DO Not Attach Compendium DO Not Attach Compendium, Do Not Delete/merge, [id number] 9 14:31:53 bacterial vaginosis + vaginitis panel, vaginal - Z11.3, Z20.0 2018 019 [facility], [address], [address], [place], [address], 9 20:08:57 HSV (1+2) DNA, qual, PCR, unspecifi ed specimen - Z11.3, Z20.2 2018 019 [facility], [address], [place], [address], 9 20:08:57 culture, vaginal/r ectal, streptoco ccus group B - Z11.3, Z20.2 2018 019 [facility], [address], [address], [place], [address], 9 20:08:58 HbA1c (hemoglob in A1c), blood 2018 019 [facility], [address], [address], 9 10:36:47 TSH, ultra-sen sitive, serum 2018 019 [facility], [address], [address], 9 10:36:48 lipid panel, serum 2018 019 [facility], [address] [place] [address], [address], 9 10:36:47 CMP, serum or plasma 2018 019 [facility], [address] [address], [place], [address], 9 10:36:45 CBC 2018 019 [facility], [address] [place] [address], [address], 9 10:36:46 pap, IG + HPV, cervical 2018 019 [facility], [address], [address], [place], [address], 9 08:13:11 bacterial vaginosis panel, vaginal 2018 019 [facility], [address], [place], [address], 9 06:04:40 culture, vaginal/r ectal, streptoco ccus group B 2018 019 [facility], [address] [place] [address], [address], [place], [address], 9 06:04:41 bacterial vaginosis panel, vaginal 2020 021 [facility], [address] [place] [address], [address], [place], [address], 1 03:06:17 culture, vaginal/r ectal, streptoco ccus group B 2020 021 [facility], [address] [place] [address], [address], [place], [address], 1 03:06:18 culture, urine 2020 021 [facility], [address] [place] [address], [address], [place], [address], 1 14:10:59 Referral cardiolog ist referral 2018 019 [email or web address] Adamson MD, [address], [address], 9 16:49:08 Procedures None recorded. Surgeries None recorded. Imaging None recorded. Medication Orders norethind aroldo (contrace ptive) 0.35 mg tablet 2016 017 [facility], [address] [place], [address], 8 16:20:05 multivita min tablet 2016 017 [facility], [address] [place], [address], 7 12:32:54 calcium 600 mg (as carbonate )-vitamin D3 20 mcg (800 unit) tablet 2016 017 [facility], [address] [place], [address], 7 12:32:53 Linzess 145 mcg capsule 2017 018 [facility], [address] [place], [address], 8 16:32:17 lactulose 10 gram/15 mL oral solution 2017 018 [facility], [address] [place], [address], 8 16:32:18 dicyclomi ne 10 mg capsule 2017 018 [facility], [address] [place], [address], 8 16:32:28 multivita min tablet 2017 018 [facility], [address] [place], [address], 8 16:21:41 Calcium with Vitamin D 600 mg-10 mcg (400 unit) tablet 2017 018 [facility], [address] [place], [address], 8 16:21:36 nitrofura ntoin monohydra te/macroc rystals 100 mg capsule 2018 019 [facility], [address] [place], [address], 9 18:07:48 Calcium with Vitamin D 600 mg-10 mcg (400 unit) tablet 2018 019 [facility], [address] [facility], [place], [address], 9 17:57:55 Condoms-P rem Lubricate d 2018 019 [facility] 361, [facility] [place], [address], 9 17:57:57 atorvasta tin 20 mg tablet 2018 019 [facility], [address] [place] [address], [address], 9 16:36:28 lisinopri l 20 mg-hydroc hlorothia zide 12.5 mg tablet 2018 019 [facility], [address] [place] [address], [address], 9 16:36:33 multivita min tablet 2018 019 [facility], [address] [place] [address], [address], 9 16:37:04 Calcium with Vitamin D 600 mg-10 mcg (400 unit) tablet 2018 019 [facility], [address] [place] [address], [address], 9 16:37:09 multivita min tablet 2020 [address] [address], [address] [place] [address], [address], 1 11:35:28 Calcium with Vitamin D 600 mg-10 mcg (400 unit) tablet 2020 021 [facility] [address], [address] [place] [address], [address], 15:33:34 Patient TargetsNo targets recorded. Patient Instructions Encounter Date Encounter Id Patient Instructions Last Modified By Organization Details Last Modified Time 05/24/2019 [id number] abnormal Pap test: care instructions te Not available 05/24/2019 16:34:26 colposcopy: before your procedure te Not available 05/24/2019 16:34:27 Reason for Referral Guest Relations Manager Referral for Hy pertensive disorder Up date medicine, symptomatic Referring Physician: Vijay Serrano, SHOCK ABSORPTION FLOOR LAYER, Encounter Date: 05/24/2019 Results Created Date Observation Date Name Description Value Unit Range Abnormal Flag Note LastModifiedBy Organization Detail LastModifiedTime 11/23/1911/22/2018 urina lysis , dipst ick Leukocytes Negati ve Not Available In-Office Order Internal Use Only DO Not Attach Compendium DO Not Attach Compendium, Do Not Delete/merge, [id number] 11/22/2018 13:56:58 11/23/1911/22/2018 urina lysis , dipst ick Nitrite positi ve Not Available In-Office Order Internal Use Only DO Not Attach Compendium DO Not Attach Compendium, Do Not Delete/merge, 11/22/2018 13:56:58 11/23/1911/22/2018 urina lysis , dipst ick Urobilinogen .2 Not Available In-Of fice Order Internal Use Only DO Not Attach Compendium DO Not Attach Compendium, Do Not Delete/merge, 11/22/2018 13:56:58 11/23/1911/22/2018 urina lysis , dipst ick Protein Negati ve Not Available In-Office Order Internal Use Only DO Not Attach Compendium DO Not Attach Compendium, Do Not Delete/merge, 11/22/2018 13:56:58 11/23/1911/22/2018 urina lysis , dipst ick pH 6.0 Not Available In-Office Order Internal Use Only DO Not Attach Compendium DO Not Attach Compendium, Do Not Delete/merge, 11/22/2018 13:56:58 11/23/1911/22/2018 urina lysis , dipst ick Blood Non-He molyze d: Trace Not Available In-Office Order Internal Use Only DO Not Attach Compendium DO Not Attach Compendium, Do Not Delete/merge, 11/22/2018 13:56:58 11/23/1911/22/2018 urina lysis , dipst ick Specific Strong 1.030 Not Available In-Off ice Order Internal Use Only DO Not Attach Compendium DO Not Attach Compendium, Do Not Delete/merge, 11/22/2018 13:56:58 11/23/1911/22/2018 urina lysis , dipst ick Ketone Trace Not Available In-Office Order Internal Use Only DO Not Attach Compendium DO Not Attach Compendium, Do Not Delete/merge, 11/22/2018 13:56:58 11/23/1911/22/2018 urina lysis , dipst ick Bilirubin Negati ve Not Available In-Office Order Internal Use Only DO Not Attach Compendium DO Not Attach Compendium, Do Not Delete/merge, 11/22/2018 13:56:58 11/23/1911/22/2018 urina lysis , dipst ick Glucose Negati ve Not Available In-Office Order Internal Use Only DO Not Attach Compendium DO Not Attach Compendium, Do Not Delete/merge, 11/22/2018 13:56:58 11/23/1911/22/2018 pregn shikha test, urine HCG negati ve Not Available In-Office Order Internal Use Only DO Not Attach Compendium DO Not Attach Compendium, Do Not Delete/merge, 11/22/2018 13:56:56 01/12/20 17 01/11/2017 pregn shikha test, urine HCG negati ve Not Available In-Office Order Internal Use Only DO Not Attach Compendium DO Not Attach Compendium, Do Not Delete/merge, 01/11/2017 11:47:50 01/12/2001/11/2017 urina lysis , dipst ick Leukocytes Trace Not Available In-Offi ce Order Internal Use Only DO Not Attach Compendium DO Not Attach Compendium, Do Not Delete/merge, 01/11/2017 11:47:38 01/12/2001/11/2017 urina lysis , dipst ick Nitrite negati ve Not Available In-Office Order Internal Use Only DO Not Attach Compendium DO Not Attach Compendium, Do Not Delete/merge, 01/11/2017 11:47:38 07/31/20 17 01/11/2017 urina lysis , dipst ick Urobilinogen 1 Not Available In-Of fice Order Internal Use Only DO Not Attach Compendium DO Not Attach Compendium, Do Not Delete/merge, 01/11/2017 11:47:38 01/12/20 17 01/11/2017 urina lysis , dipst ick Protein Trace Not Available In-Office Order Internal Use Only DO Not Attach Compendium DO Not Attach Compendium, Do Not Delete/merge, 01/11/2017 11:47:38 01/12/20 17 01/11/2017 urina lysis , dipst ick pH 7.0 Not Available In-Office Order Internal Use Only DO Not Attach Compendium DO Not Attach Compendium, Do Not Delete/merge, 01/11/2017 11:47:38 01/12/20 17 01/11/2017 urina lysis , dipst ick Blood Negati ve Not Available In-Office Order Internal Use Only DO Not Attach Compendium DO Not Attach Compendium, Do Not Delete/merge, 01/11/2017 11:47:38 01/12/20 17 01/11/2017 urina lysis , dipst ick Specific Strong 1.020 Not Available In-Off ice Order Internal Use Only DO Not Attach Compendium DO Not Attach Compendium, Do Not Delete/merge, 01/11/2017 11:47:38 01/12/20 17 01/11/2017 urina lysis , dipst ick Ketone Negati ve Not Available In-Office Order Internal Use Only DO Not Attach Compendium DO Not Attach Compendium, Do Not Delete/merge, 01/11/2017 11:47:38 01/12/20 17 01/11/2017 urina lysis , dipst ick Bilirubin Negati ve Not Available In-Office Order Internal Use Only DO Not Attach Compendium DO Not Attach Compendium, Do Not Delete/merge, 01/11/2017 11:47:38 01/12/20 17 01/11/2017 urina lysis , dipst ick Glucose Negati ve Not Available In-Office Order Internal Use Only DO Not Attach Compendium DO Not Attach Compendium, Do Not Delete/merge, [id number] 01/11/2017 11:47:38 01/12/20 17 01/13/2017 pap, IG + HPV, cervi julito diagnosis: ABDIRIZAK LONG VERONICA FOR INTRA EPITH ELIAL LESIO N AND BENI SPRAGUE . FUNGA L ORGAN ISMS MORPH OLOGI RAMSEY CONSI STENT WITH WALTER DA SPECI ES ARE PRESE NT. Not Available [facility] ([facility]) [address] [place], [address], 01/13/2017 16:14:17 01/12/20 17 01/13/2017 pap, IG + HPV, cervi julito specimen adequacy: ABDIRIZAK Camarillo SATIS FACTO RY FOR EVALU ATION . NO ENDOC ERVIC AL COMPO NENT IS IDENT IFIED . Not Available [facility] ([facility]) [address] [place], [address], 01/13/2017 16:14:17 01/12/20 17 01/13/2017 pap, IG + HPV, cervi julito clinician provided ICD10: ABDIRIZAK Camarillo Z20.2 Z01.4 19 Not Available [facility] ([facility]) [address] [place], [address], 01/13/2017 16:14:17 01/12/20 17 01/13/2017 pap, IG + HPV, cervi julito performed by: KAELA RYAN (ASCP ) Not Available [facility] ([facility]) [address] [place], [address], 01/13/2017 16:14:17 01/12/20 17 01/13/2017 pap, IG + HPV, cervi julito . . Not Available [facility] ([facility]) [address] [place], [address], 01/13/2017 16:14:17 01/12/20 17 01/13/2017 pap, IG + HPV, cervi julito pathologist provided ICD10: ABDIRIZAK Camarillo R87.5 Not Available [facility] ([facility]) [address] [facility], [place], [address], 01/13/2017 16:14:17 01/12/20 17 01/13/2017 pap, IG + HPV, cervi julito note: COMMEN T THE PAP SMEAR IS A SCREE CRISTIN TEST DESIG LEANA TO AID IN THE DETEC TION OF LUIS ALBERTO LIGNA NT AND MALIG NANT CONDI TIONS OF THE UTERI NE CERVI X. IT IS NOT A DIAGN OSTIC PROCE DURE AND SHOUL D NOT BE USED THE SOLE MEANS OF DETEC TING CERVI JULITO CANCE R. BOTH FALSE -POSI TIVE AND FALSE -NEGA TIVE REPOR TS DO OCCUR . Not Available [facility] ([facility]) [address] [facility], [place], [address], 01/13/2017 16:14:17 01/12/20 17 01/13/2017 pap, IG + HPV, cervi julito test methodology: COMMEN T THIS LIQUI D BASED THINP REP(R ) PAP TEST WAS SCREE LEANA WITH THE USE OF AN IMAGE GUIDE Miguel Manzano. Not Available [facility] ([facility]) [address] [facility], [place], [address], 01/13/2017 16:14:17 01/12/20 17 01/13/2017 pap, IG + HPV, cervi julito HPV aptima POSITI VE negati ve abnormal THIS TEST DETEC TS FOURT EEN HIGH- RISK HPV TYPES (16/1 8/31/ 33/35 /39/4 5/ 51/52 /56/5 8/59/ 66/68 ) WITHO UT DIFFE RENTI ATION . Not Available [facility] ([facility]) [address] [facility], [place], [address], 01/13/2017 16:14:17 01/12/20 17 01/12/2017 pleas e note please note COMMEN T THE DATE AND/O R TIME OF COLLE CTION WAS NOT INDIC ATED ON THE REQUI SITIO N REQUI RED BY STATE AND LYNDA [place] LAW. THE DATE OF RECEI PT OF THE SPECI MEN WAS USED THE COLLE CTION DATE IF NOT SUPPL IED. Not Available [facility] ([facility]) [address] [place], [address], 01/13/2017 16:14:18 01/12/20 17 01/13/2017 bacte rial vagin osis + vagin itis panel , vagin al atopobium vaginae HIGH - 2 score abnormal Not Available [facility] ([facility]) [address] [place], [address], 01/14/2017 06:14:37 01/12/20 17 01/13/2017 bacte rial vagin osis + vagin itis panel , vagin al bvab 2 HIGH - 2 score abnormal Not Available [facility] ([facility]) [address] [place], [address], 01/14/2017 06:14:37 01/12/20 17 01/13/2017 bacte rial vagin osis + vagin itis panel , vagin al megasphaera 1 LOW - 0 score CALCU LATE TOTAL SCORE BY CASEY De Anda THE 3 INDIV IDUAL BACTE RIAL VAGIN OSIS (BV) MARKE R SCORE S TOGET HER. TOTAL SCORE IS INTER PRETE D FOLLO WS: TOTAL SCORE 0-1: INDIC ATES THE ABSEN CE OF BV. TOTAL SCORE 2: INDET ERMIN ATE FOR BV. ADDIT IONAL CLINI JULITO DATA SHOUL D BE EVALU ATED TO ESTAB MAYDA A DIAGN OSIS. TOTAL SCORE 3-6: INDIC ATES THE PRESE NCE OF BV. THIS TEST WAS DEVEL OPED AND ITS PERFO RMANC E HAIDER CTERI STICS DETER MINED BY [facility]. IT HAS NOT BEEN CLEAR ED OR APPRO SAMANTHA BY THE FOOD AND DRUG ADMIN ISTRA TION. THE FDA HAS DETER MINED THAT SUCH CLEAR ANCE OR APPRO DANIEL IS NOT NECES KATRINA. Not Available [facility] ([facility]) [address] [place], [address], 01/14/2017 06:14:37 01/12/20 17 01/13/2017 bacte rial vagin osis + vagin itis panel , vagin al rozina albicans, DIEGO POSITI VE negati ve abnormal Not Available [facility] ([facility]) [address] [place], [address], 01/14/2017 06:14:37 01/12/2001/13/2017 bacte rial vagin osis + vagin itis panel , vagin al rozina glabrata, DIEGO NEGATI VE negati ve THIS TEST WAS DEVEL OPED AND ITS PERFO RMANC E HAIDER CTERI STICS DETER MINED BY [facility]. IT HAS NOT BEEN CLEAR ED OR APPRO SAMANTHA BY THE FOOD AND DRUG ADMIN ISTRA TION. THE FDA HAS DETER MINED THAT SUCH CLEAR ANCE OR APPRO DANIEL IS NOT NECES KATRINA. Not Available [facility] ([facility]) [address] [place], [address], 01/14/2017 06:14:37 01/12/2001/13/2017 bacte rial vagin osis + vagin itis panel , vagin al chlamydia trachomatis, DIEGO NEGATI VE negati ve Not Available [facility] ([facility]) [address] [place], [address], 01/14/2017 06:14:37 01/12/2001/13/2017 bacte rial vagin osis + vagin itis panel , vagin al neisseria gonorrhoeae, DIEGO NEGATI VE negati ve Not Available [facility] ([facility]) [address] [place], [address], 01/14/2017 06:14:37 01/12/2001/14/2017 bacte rial vagin osis + vagin itis panel , vagin al trich vag by DIEGO NEGATI VE negati ve Not Available [facility] ([facility]) [address] [place], [address], 01/14/2017 06:14:37 01/12/2001/1301/13/2017 HSV (1+2) DNA, qual, PCR, unspe cifie d speci men hsv 1 DIEGO NEGATI VE negati ve Not Available [facility] ([facility]) [address] [facility], [place], [address], 01/14/2017 06:14:38 01/12/20 17 01/13/2017 HSV (1+2) DNA, qual, PCR, unspe cifie d speci men hsv 2 DIEGO NEGATI VE negati ve Not Available [facility] ([facility]) [address] [facility], [place], [address], 01/14/2017 06:14:38 01/12/20 17 01/13/2017 cultu re, vagin al/re ctal, strep tococ cus group B strep gp B DIEGO POSITI VE negati ve abnormal CENTE RS FOR DISEA SE CONTR OL AND PREVE NTION (CDC) AND AMERI CAN CONGR ESS OF OBSTE TRICI ANS AND GYNEC OLOGI STS (ACOG ) GUIDE LINES FOR PREVE NTION OF PERIN ATAL GROUP B STREP TOCOC JULITO (GBS) DISEA SE SPECI FY CO-CO LLECT ION OF A VAGIN AL AND RECTA L SWAB SPECI MEN TO MAXIM IZE SENSI TIVIT Y OF GBS DETEC TION. PER THE CDC AND ACOG, SWABB ING BOTH THE LOWER VAGIN A AND RECTU M SUBST ANTIA LLY INCRE ASES THE YIELD OF DETEC TION JV RED WITH SAMPL ING THE VAGIN A ALONE . PENIC ILLIN G, AMPIC ILLIN , OR CEFAZ YVROSE ARE INDIC ATED FOR INTRA PARTU M PROPH YLAXI S OF PERIN ATAL GBS COLON IZATI ON. REFLE X SUSCE PTIBI LITY TESTI NG SHOUL D BE PERFO RMED PRIOR TO USE OF CLIND AMYCI N ONLY ON GBS ISOLA MANJU FROM PENIC ILLIN -MAIN RGIC WOMEN WHO ARE CONSI DERED A HIGH RISK FOR ANAPH YLAXI S. TREAT MENT WITH VANCO MYCIN WITHO UT ADDIT IONAL TESTI NG IS WARRA NTED IF RESIS TANCE TO CLIND AMYCI N IS NOTED . Not Available [facility] ([facility]) [address] [facility], [place], [address], 01/14/2017 06:14:38 01/12/20 17 01/11/2017 ladarius virk note please note COMMEN T THE DATE AND/O R TIME OF COLLE CTION WAS NOT INDIC ATED ON THE REQUI SITIO N REQUI RED BY STATE AND LYNDA AL LAW. THE DATE OF RECEI PT OF THE SPECI MEN WAS USED THE COLLE CTION DATE IF NOT SUPPL IED. Not Available [facility] ([facility]) [address] [facility], [place], [address], 01/14/2017 06:14:39 12/28/19 18 12/30/2017 pap, IG + HPV, cervi julito HPV aptima NEGATI VE negati ve This test detec ts fourt een high- risk HPV types (16/1 8/31/ 33/35 /39/4 5/ 51/52 /56/5 8/59/ 66/68 ) witho ut diffe renti ation . Not Available [facility] ([facility]) [address] [facility], [place], [address], 12/31/2017 16:13:35 12/28/19 18 12/31/2017 pap, IG + HPV, cervi julito diagnosis: COMMEN T NEGAT VERONICA FOR INTRA EPITH ELIAL LESIO N AND MALIG CELESTINE . THIS SPECI MEN WAS RESCR EENED PART OF OUR QUALI TY CONTR OL PROGR AM. Not Available [facility] ([facility]) [address] [facility], [place], [address], 12/31/2017 16:13:35 12/28/19 18 12/31/2017 pap, IG + HPV, cervi julito specimen adequacy: COMMEN T Satis facto ry for evalu ation . No endoc ervic al compo nent is ident ified . Not Available [facility] ([facility]) [address] [facility], [place], [address], 12/31/2017 16:13:35 12/28/19 18 12/31/2017 pap, IG + HPV, cervi julito clinician provided ICD10: ABDIRIZAK Camarillo Z01.4 19 Z20.2 Not Available [facility] ([facility]) [address] [place], [address], 12/31/2017 16:13:35 12/28/19 18 12/31/2017 pap, IG + HPV, cervi julito performed by: ABDIRIZAK antonio, Cytot echno logis t (ASCP ) Not Available [facility] ([facility]) [address] [place], [address], 12/31/2017 16:13:35 12/28/19 18 12/31/2017 pap, IG + HPV, cervi julito QC reviewed by: ABDIRIZAK soliz, Cytot echno logis t (ASCP ) Not Available [facility] ([facility]) [address] [place], [address], 12/31/2017 16:13:35 12/28/19 18 12/31/2017 pap, IG + HPV, cervi julito . . Not Available [facility] ([facility]) [address] [place], [address], 12/31/2017 16:13:35 12/28/19 18 12/31/2017 pap, IG + HPV, cervi julito note: ABDIRIZAK Camarillo The Pap smear is a scree cristin test desig leana to aid in the detec tion of luis alberto ligna nt and malig nant condi tions of the uteri ne cervi x. It is not a diagn ostic proce dure and shoul d not be used as the sole means of detec ting cervi julito cance r. Both false -posi tive and false -nega tive repor ts do occur . Not Available [facility] ([facility]) [address] [place], [address], 12/31/2017 16:13:35 12/28/19 18 12/31/2017 pap, IG + HPV, cervi julito test methodology: COMMEN T This liqui d based ThinP rep(R ) pap test was jose d dueñas with the use of an image guide miguel cho Not Available [facility] ([facility]) [address] [place], [address], 12/31/2017 16:13:35 12/28/19 18 12/31/2017 bacte rial vagin osis + vagin itis panel , vagin al trich vag by DIEGO NEGATI VE negati ve Not Available [facility] ([facility]) [address] [place], [address], 01/03/2018 16:18:29 12/28/19 18 12/31/2017 bacte rial vagin osis + vagin itis panel , vagin al chlamydia trachomatis, DIEGO NEGATI VE negati ve Not Available [facility] ([facility]) [address] [place], [address], 01/03/2018 16:18:29 12/28/19 18 12/31/2017 bacte rial vagin osis + vagin itis panel , vagin al neisseria gonorrhoeae, DIEGO NEGATI VE negati ve Not Available [facility] ([facility]) [address] [place], [address], 01/03/2018 16:18:29 12/28/19 18 01/01/2018 bacte rial vagin osis + vagin itis panel , vagin al rozina albicans, DIEGO NEGATI VE negati ve Not Available [facility] ([facility]) [address] [place], [address], 01/03/2018 16:18:29 12/28/19 18 01/01/2018 bacte rial vagin osis + vagin itis panel , vagin al rozina glabrata, DIEGO NEGATI VE negati ve This test was devel oped and its perfo rmanc e haider cteri stics deter mined by [facility]. It has not been clear ed or appro samantha by the Food and Drug Admin istra tion. The FDA has deter mined that such clear ance or appro daniel is not neces katrina. Not Available [facility] ([facility]) [address] [facility], [place], [address], 01/03/2018 16:18:29 12/28/19 18 01/03/2018 bacte rial vagin osis + vagin itis panel , vagin al atopobium vaginae HIGH - 2 score abnormal Not Available [facility] ([facility]) [address] [facility], [place], [address], 01/03/2018 16:18:29 12/28/19 18 01/03/2018 bacte rial vagin osis + vagin itis panel , vagin al bvab 2 HIGH - 2 score abnormal Not Available [facility] ([facility]) [address] [place], [address], 01/03/2018 16:18:29 12/28/19 18 01/03/2018 bacte rial vagin osis + vagin itis panel , vagin al megasphaera 1 HIGH - 2 score abnormal Calcu late total score by casey de anda the 3 indiv idual bacte rial vagin osis (BV) marke r score s toget her. Total score is inter prete d as follo ws: Total score 0-1: Indic ates the absen ce of BV. Total score 2: Indet ermin ate for BV. Addit ional clini julito data shoul d be evalu ated to estab mayda a diagn osis. Total score 3-6: Indic ates the prese nce of BV. This test was devel oped and its perfo rmanc e haider cteri stics deter mined by [facility]. It has not been clear ed or appro samantha by the Food and Drug Admin istra tion. The FDA has deter mined that such clear ance or appro daniel is not neces katrina. Not Available [facility] ([facility]) [address] [facility], [place], [address], 01/03/2018 16:18:29 12/28/19 18 12/30/2017 HSV (1+2) DNA, qual, PCR, unspe cifie d speci men hsv 1 DIEGO NEGATI VE negati ve Not Available [facility] ([facility]) [address] [facility], [place], [address], 01/03/2018 16:18:30 12/28/19 18 12/30/2017 HSV (1+2) DNA, qual, PCR, unspe cifie d speci men hsv 2 DIEGO NEGATI VE negati ve Not Available [facility] ([facility]) [address] [facility], [place], [address], 01/03/2018 16:18:30 12/28/19 18 12/30/2017 cultu re, vagin al/re ctal, strep tococ cus group B strep gp B DIEGO POSITI VE negati ve abnormal Cente rs for Disea se Contr ol and Preve ntion (CDC) and Serafin can Congr ess of Obste trici ans and Gynec ologi sts (ACOG ) guide lines for preve ntion of perin atal group B strep tococ julito (GBS) disea se speci fy co-co llect ion of a vagin al and recta l swab speci men to maxim ize sensi tivit y of GBS detec tion. Per the CDC and ACOG, swabb ing both the lower vagin a and rectu m subst antia lly incre ases the yield of detec tion jv red with sampl ing the vagin a alone . Penic illin G, ampic illin , or cefaz yvrose are indic ated for intra partu m proph ylaxi s of perin atal GBS colon izati on. Refle x susce ptibi lity testi ng shoul d be perfo rmed prior to use of clind amyci n only on GBS isola manju from penic illin -main rgic women who are consi dered a high risk for anaph ylaxi s. Treat ment with vanco mycin witho ut addit ional testi ng is warra nted if resis tance to dorcas betancourt is noted . Not Available [facility] ([facility]) [address] [facility], [place], [address], 01/03/2018 16:18:30 12/28/19 18 12/27/2017 pregn shikha test, urine HCG negati ve Not Available In-Office Order Internal Use Only DO Not Attach Compendium DO Not Attach Compendium, Do Not Delete/merge, [id number] 12/27/2017 16:15:14 12/28/19 18 12/27/2017 urina lysis , dipst ick Leukocytes Negati ve Not Available In-Office Order Internal Use Only DO Not Attach Compendium DO Not Attach Compendium, Do Not Delete/merge, 12/27/2017 16:12:17 12/28/19 18 12/27/2017 urina lysis , dipst ick Nitrite negati ve Not Available In-Office Order Internal Use Only DO Not Attach Compendium DO Not Attach Compendium, Do Not Delete/merge, 12/27/2017 16:12:17 12/28/19 18 12/27/2017 urina lysis , dipst ick Urobilinogen 1 Not Available In-Of fice Order Internal Use Only DO Not Attach Compendium DO Not Attach Compendium, Do Not Delete/merge, 12/27/2017 16:12:17 12/28/19 18 12/27/2017 urina lysis , dipst ick Protein Negati ve Not Available In-Office Order Internal Use Only DO Not Attach Compendium DO Not Attach Compendium, Do Not Delete/merge, 12/27/2017 16:12:17 12/28/19 18 12/27/2017 urina lysis , dipst ick pH 7.0 Not Available In-Office Order Internal Use Only DO Not Attach Compendium DO Not Attach Compendium, Do Not Delete/merge, 12/27/2017 16:12:17 12/28/19 18 12/27/2017 urina lysis , dipst ick Blood Negati ve Not Available In-Office Order Internal Use Only DO Not Attach Compendium DO Not Attach Compendium, Do Not Delete/merge, 12/27/2017 16:12:17 12/28/19 18 12/27/2017 urina lysis , dipst ick Specific Strong 1.020 Not Available In-Off ice Order Internal Use Only DO Not Attach Compendium DO Not Attach Compendium, Do Not Delete/merge, [id number] 12/27/2017 16:12:17 12/28/19 18 12/27/2017 urina lysis , dipst ick Ketone Negati ve Not Available In-Office Order Internal Use Only DO Not Attach Compendium DO Not Attach Compendium, Do Not Delete/merge, [id number] 12/27/2017 16:12:17 12/28/19 18 12/27/2017 urina lysis , dipst ick Bilirubin Negati ve Not Available In-Office Order Internal Use Only DO Not Attach Compendium DO Not Attach Compendium, Do Not Delete/merge, [id number] 12/27/2017 16:12:17 12/28/19 18 12/27/2017 urina lysis , dipst ick Glucose Negati ve Not Available In-Office Order Internal Use Only DO Not Attach Compendium DO Not Attach Compendium, Do Not Delete/merge, [id number] 12/27/2017 16:12:17 11/23/19 19 11/24/2018 cultu re, urine urine culture, routine FINAL REPORT Not Available [facility] ([facility]) [address] [facility], [place], [address], 11/24/2018 11:38:35 11/23/19 19 11/24/2018 cultu re, urine result 1 COMMEN T Cultu re shows less than 10,00 0 colon y formi ng units of bacte carl per deisy liter of urine . This colon y count is not gener ally consi dered to be clini ramsey signi fican t. Not Available [facility] ([facility]) [address] [facility], [place], [address], 11/24/2018 11:38:35 11/23/19 19 11/24/2018 pap, IG + HPV, cervi julito diagnosis: COMMEN T NEGAT VERONICA FOR INTRA EPITH ELIAL LESIO N OR BENI SPRAGUE . Not Available [facility] ([facility]) [address] [place], [address], 11/25/2018 06:21:18 11/23/1911/24/2018 pap, IG + HPV, cervi julito specimen adequacy: ABDIRIZAK [place] Satis facto ry for evalu ation . No endoc ervic al compo nent is ident ified . Parti ally obscu ring thick areas are prese nt. Not Available [facility] ([facility]) [address] [place], [address], 11/25/2018 06:21:18 11/23/19 19 11/24/2018 pap, IG + HPV, cervi julito clinician provided ICD10: ABDIRIZAK [place] Z20.2 Z01.4 19 N39.0 Not Available [facility] ([facility]) [address] [place], [address], 11/25/2018 06:21:18 11/23/19 19 11/24/2018 pap, IG + HPV, cervi julito performed by: ABDIRIZAK Kim , Cytot kristian camarillo (ASCP ) Not Available [facility] ([facility]) [address] [place], [address], 11/25/2018 06:21:18 11/23/1911/24/2018 pap, IG + HPV, cervi julito . . Not Available [facility] ([facility]) [address] [place], [address], 11/25/2018 06:21:18 11/23/1911/24/2018 pap, IG + HPV, cervi julito note: ABDIRIZAK [place] The Pap smear is a scree cristin test desig leana to aid in the detec tion of luis alberto ligna nt and malig nant condi tions of the uteri ne cervi x. It is not a diagn ostic proce dure and shoul d not be used as the sole means of detec ting cervi julito cance r. Both false -posi tive and false -nega tive repor ts do occur . Not Available [facility] ([facility]) [address] [facility], [place], [address], 11/25/2018 06:21:18 11/23/1911/24/2018 pap, IG + HPV, cervi julito test methodology: TNP The Thin Prep( R) Image r was unabl e to read this speci men. There fore a manua l revie w was perfo rmed. Not Available [facility] ([facility]) [address] [facility], [place], [address], 11/25/2018 06:21:18 11/23/1911/25/2018 pap, IG + HPV, cervi julito HPV aptima NEGATI VE negati ve This test detec ts fourt een high- risk HPV types (16/1 8/31/ 33/35 /39/4 5/ 51/52 /56/5 8/59/ 66/68 ) witho ut diffe renti ation . Not Available [facility] ([facility]) [address] [facility], [place], [address], 11/25/2018 06:21:18 11/23/1911/25/2018 bacte rial vagin osis + vagin itis panel , vagin al trich vag by DIEGO NEGATI VE negati ve Not Available [facility] ([facility]) [address] [place], [address], 11/29/2018 20:08:57 11/23/1911/25/2018 bacte rial vagin osis + vagin itis panel , vagin al chlamydia trachomatis, DIEGO NEGATI VE negati ve Not Available [facility] ([facility]) [address] [place], [address], 11/29/2018 20:08:57 11/23/1911/25/2018 bacte rial vagin osis + vagin itis panel , vagin al neisseria gonorrhoeae, DIEGO NEGATI VE negati ve Not Available [facility] ([facility]) [address] [facility], [place], [address], 11/29/2018 20:08:57 11/23/1911/26/2018 bacte rial vagin osis + vagin itis panel , vagin al atopobium vaginae HIGH - 2 score abnormal Not Available [facility] ([facility]) [address] [facility], [place], [address], 11/29/2018 20:08:57 11/23/1911/26/2018 bacte rial vagin osis + vagin itis panel , vagin al bvab 2 HIGH - 2 score abnormal Not Available [facility] ([facility]) [address] [place], [address], 11/29/2018 20:08:57 11/23/1911/26/2018 bacte rial vagin osis + vagin itis panel , vagin al megasphaera 1 HIGH - 2 score abnormal Calcu late total score by casey de anda the 3 indiv idual bacte rial vagin osis (BV) marke r score s toget her. Total score is inter prete d as follo ws: Total score 0-1: Indic ates the absen ce of BV. Total score 2: Indet ermin ate for BV. Addit ional clini julito data shoul d be evalu ated to estab mayda a diagn osis. Total score 3-6: Indic ates the prese nce of BV. This test was devel oped and its perfo rmanc e haider cteri stics deter mined by [facility]. It has not been clear ed or appro samantha by the Food and Drug Admin istra tion. The FDA has deter mined that such clear ance or appro daniel is not neces katrina. Not Available [facility] ([facility]) [address] [facility], [place], [address], 11/29/2018 20:08:57 11/23/1911/26/2018 bacte rial vagin osis + vagin itis panel , vagin al rozina albicans, DIEGO NEGATI VE negati ve Not Available [facility] ([facility]) [address] [place], [address], 11/29/2018 20:08:57 11/23/19 19 11/26/2018 bacte rial vagin osis + vagin itis panel , vagin al rozina glabrata, DIEGO NEGATI VE negati ve This test was devel oped and its perfo rmanc e haider cteri stics deter mined by [facility]. It has not been clear ed or appro samantha by the Food and Drug Admin istra tion. The FDA has deter mined that such clear ance or appro daniel is not neces katrina. Not Available [facility] ([facility]) [address] [facility], [place], [address], 11/29/2018 20:08:57 11/23/19 19 11/29/2018 HSV (1+2) DNA, qual, PCR, unspe cifie d speci men hsv 1 DIEGO NEGATI VE negati ve Not Available [facility] ([facility]) [address] [place], [address], 11/29/2018 20:08:57 11/23/1911/29/2018 HSV (1+2) DNA, qual, PCR, unspe cifie d speci men hsv 2 DIEGO NEGATI VE negati ve Not Available [facility] ([facility]) [address] [place], [address], 11/29/2018 20:08:57 11/23/1911/24/2018 cultu re, vagin al/re ctal, strep tococ cus group B strep gp B DIEGO NEGATI VE negati ve Cente rs for Disea se Contr ol and Preve ntion (CDC) and Ameri can Congr ess of Obste trici ans and Gynec ologi sts (ACOG ) guide lines for preve ntion of perin atal group B strep tococ julito (GBS) disea se speci fy co-co llect ion of a vagin al and recta l swab speci men to maxim ize sensi tivit y of GBS detec tion. Per the CDC and ACOG, swabb ing both the lower vagin a and rectu m subst antia lly incre ases the yield of detec tion jv red with sampl ing the vagin a alone . Penic illin G, ampic illin , or cefaz yvrose are indic ated for intra partu m proph ylaxi s of perin atal GBS colon izati on. Refle x susce ptibi lity testi ng shoul d be perfo rmed prior to use of clind amyci n only on GBS isola manju from penic illin -main rgic women who are consi dered a high risk for anaph ylaxi s. Treat ment with vanco mycin witho ut addit ional testi ng is warra nted if resis tance to clind amyci n is noted . Not Available [facility] ([facility]) [address] [place], [address], 11/29/2018 20:08:58 05/24/20 19 05/25/2019 CMP, serum or plasm a glucose 85 mg/dL 65-99 Not Available [facility] ([facility]) [address] [place], [address], 05/25/2019 10:36:45 05/24/20 19 05/25/2019 CMP, serum or plasm a BUN 11 mg/dL 6-20 Not Available [facility] ([facility]) [address] [place], [address], 05/25/2019 10:36:45 05/24/20 19 05/25/2019 CMP, serum or plasm a creatinine 0.75 mg/dL 0.57-1 .00 Not Available [facility] ([facility]) [address] [place], [address], 05/25/2019 10:36:45 05/24/20 19 05/25/2019 CMP, serum or plasm a eGFR if nonafricn AM 106 mL/mi n/1.7 3 >59 Not Available [facility] ([facility]) [address] [facility] [place], [address], 05/25/2019 10:36:45 05/24/20 19 05/25/2019 CMP, serum or plasm a eGFR if africn AM 122 mL/mi n/1.7 3 >59 Not Available [facility] ([facility]) [address] [facility], [place], [address], 05/25/2019 10:36:45 05/24/20 19 05/25/2019 CMP, serum or plasm a BUN/creatini ne ratio 15 9-23 Not Available [facility] ([facility]) [address] [facility] [place], [address], 05/25/2019 10:36:45 05/24/20 19 05/25/2019 CMP, serum or plasm a sodium 139 mmol/ L 134-14 4 Not Available [facility] ([facility]) [address] [facility] [place], [address], 05/25/2019 10:36:45 05/24/20 19 05/25/2019 CMP, serum or plasm a potassium 4.2 mmol/ L 3.5-5. 2 Not Available [facility] ([facility]) [address] [facility] [place], [address], 05/25/2019 10:36:45 05/24/20 19 05/25/2019 CMP, serum or plasm a chloride 102 mmol/ L 96-106 Not Available [facility] ([facility]) [address] [place], [address], 05/25/2019 10:36:45 05/24/20 19 05/25/2019 CMP, serum or plasm a carbon dioxide, total 25 mmol/ L 20-29 Not Available [facility] ([facility]) [address] [place], [address], 05/25/2019 10:36:45 05/24/20 05/25/2019 CMP, serum or plasm a calcium 9.7 mg/dL 8.7-10 .2 Not Available [facility] ([facility]) [address] [facility] [place], [address], 05/25/2019 10:36:45 05/24/20 19 05/25/2019 CMP, serum or plasm a protein, total 7.6 g/dL 6.0-8. 5 Not Available [facility] ([facility]) [address] [place], [address], 05/25/2019 10:36:45 05/24/20 19 05/25/2019 CMP, serum or plasm a albumin 4.6 g/dL 3.5-5. 5 Not Available [facility] ([facility]) [address] [facility], [place], [address], 05/25/2019 10:36:45 05/24/20 19 05/25/2019 CMP, serum or plasm a globulin, total 3.0 g/dL 1.5-4. 5 Not Available [facility] ([facility]) [address] [facility] [place], [address], 05/25/2019 10:36:45 05/24/20 19 05/25/2019 CMP, serum or plasm a A/G ratio 1.5 1.2-2. 2 Not Available [facility] ([facility]) [address] [facility] [place], [address], 05/25/2019 10:36:45 05/24/20 19 05/25/2019 CMP, serum or plasm a bilirubin, total 0.4 mg/dL 0.0-1. 2 Not Available [facility] ([facility]) [address] [facility] [place], [address], 05/25/2019 10:36:45 05/24/20 19 05/25/2019 CMP, serum or plasm a alkaline phosphatase 75 IU/L 39-117 Not Available [facility] ([facility]) [address] [facility] [place], [address], 05/25/2019 10:36:45 05/24/20 19 05/25/2019 CMP, serum or plasm a AST (SGOT) 18 IU/L 0-40 Not Available [facility] ([facility]) [address] [facility] [place], [address], 05/25/2019 10:36:45 05/24/20 19 05/25/2019 CMP, serum or plasm a ALT (SGPT) 16 IU/L 0-32 Not Available [facility] ([facility]) [address] [facility] [place], [address], 05/25/2019 10:36:45 05/24/20 19 05/25/2019 CBC WBC 5.5 x10e3 /uL 3.4-10 .8 Not Available [facility] ([facility]) [address] [facility] [place], [address], 05/25/2019 10:36:46 05/24/20 19 05/25/2019 CBC RBC 3.86 x10e6 /uL 3.77-5 .28 Not Available [facility] ([facility]) [address] [facility] [place], [address], 05/25/2019 10:36:46 05/24/20 19 05/25/2019 CBC hemoglobin 12.4 g/dL 11.1-1 5.9 Not Available [facility] ([facility]) [address] [facility] [place], [address], 05/25/2019 10:36:46 05/24/20 19 05/25/2019 CBC hematocrit 36.8 % 34.0-4 6.6 Not Available [facility] ([facility]) [address] [facility] [place], [address], 05/25/2019 10:36:46 05/24/20 19 05/25/2019 CBC MCV 95 fL 79-97 Not Available [facility] ([facility]) [address] [facility], [place], [address], 05/25/2019 10:36:46 05/24/20 19 05/25/2019 CBC MCH 32.1 pg 26.6-3 3.0 Not Available [facility] ([facility]) [address] [facility], [place], [address], 05/25/2019 10:36:46 05/24/20 19 05/25/2019 CBC MCHC 33.7 g/dL 31.5-3 5.7 Not Available [facility] ([facility]) [address] [facility], [place], [address], 05/25/2019 10:36:46 05/24/20 19 05/25/2019 CBC RDW 13.2 % 12.3-1 5.4 Eff ectiv e Janua ry 2019, the RDW pedia tric refer ence* * inter daniel will be remov ed and the adult refer ence inter daniel will be pope ing to: Femal e 11.7 - 15.4 Male 11.6 - 15.4 Not Available [facility] ([facility]) [address] [facility], [place], [address], 05/25/2019 10:36:46 05/24/20 19 05/25/2019 CBC platelets 369 x10e3 /uL 150-45 0 Not Available [facility] ([facility]) [address] [facility], [place], [address], 05/25/2019 10:36:46 05/24/20 19 05/25/2019 CBC NRBC TURKEY BONER Not Available [facility] ([facility]) [address] [facility], [place], [address], 05/25/2019 10:36:46 05/24/20 19 05/25/2019 lipid panel , serum cholesterol, total 150 mg/dL 100-19 9 Not Available [facility] ([facility]) [address] [facility], [place], [address], 05/25/2019 10:36:47 05/24/20 19 05/25/2019 lipid panel , serum triglyceride s 84 mg/dL 0-149 Not Available [facility] ([facility]) [address] [place], [address], 05/25/2019 10:36:47 05/24/20 19 05/25/2019 lipid panel , serum HDL cholesterol 52 mg/dL >39 Not Available [facility] ([facility]) [address] [facility], [place], [address], 05/25/2019 10:36:47 05/24/20 19 05/25/2019 lipid panel , serum VLDL cholesterol julito 17 mg/dL 5-40 Not Available [facility] ([facility]) [address] [facility], [place], [address], 05/25/2019 10:36:47 05/24/20 19 05/25/2019 lipid panel , serum LDL cholesterol calc 81 mg/dL 0-99 Not Available [facility] ([facility]) [address] [place], [address], 05/25/2019 10:36:47 05/24/20 19 05/25/2019 lipid panel , serum comment: TURKEY BONER Not Available [facility] ([facility]) [address] [place], [address], 05/25/2019 10:36:47 05/24/20 19 05/25/2019 lipid panel , serum LDL/HDL ratio 1.6 ratio 0.0-3. 2 LDL/H DL Ratio Men Women 1/2 Avg.R isk 1.0 1.5 Avg.R isk 3.6 3.2 2X Avg.R isk 6.2 5.0 3X Avg.R isk 8.0 6.1 Not Available [facility] ([facility]) [address] [facility], [place], [address], 05/25/2019 10:36:47 05/24/20 19 05/25/2019 HbA1c (hemo globi n A1c), blood hemoglobin A1C 5.0 % 4.8-5. 6 Predi abete s: 5.7 - 6.4 Diabe manju: >6.4 Glyce meghann contr ol for adult s with diabe manju: <7.0 Not Available [facility] ([facility]) [address] [place], [address], 05/25/2019 10:36:47 05/24/2005/25/2019 TSH, ultra -sens itive , serum TSH 0.577 uIU/m L 0.450- 4.500 Not Available [facility] ([facility]) [address] [place], [address], 05/25/2019 10:36:48 05/24/2005/27/2019 bacte rial vagin osis panel , vagin al trich vag by DIEGO NEGATI VE negati ve Not Available [facility] ([facility]) [address] [place], [address], 05/29/2019 06:04:40 05/24/2005/27/2019 bacte rial vagin osis panel , vagin al chlamydia trachomatis, DIEGO NEGATI VE negati ve Not Available [facility] ([facility]) [address] [place], [address], 05/29/2019 06:04:40 05/24/2005/27/2019 bacte rial vagin osis panel , vagin al neisseria gonorrhoeae, DIEGO NEGATI VE negati ve Not Available [facility] ([facility]) [address] [place], [address], 05/29/2019 06:04:40 05/24/2005/27/2019 bacte rial vagin osis panel , vagin al hsv 1 DIEGO NEGATI VE negati ve Not Available [facility] ([facility]) [address] [place], [address], 05/29/2019 06:04:40 05/24/2005/27/2019 bacte rial vagin osis panel , vagin al hsv 2 DIEGO NEGATI VE negati ve Not Available [facility] ([facility]) [address] [place], [address], 05/29/2019 06:04:40 05/24/2005/28/2019 bacte rial vagin osis panel , vagin al atopobium vaginae HIGH - 2 score abnormal Not Available [facility] ([facility]) [address] [facility], [place], [address], 05/29/2019 06:04:40 05/24/2005/28/2019 bacte rial vagin osis panel , vagin al bvab 2 HIGH - 2 score abnormal Not Available [facility] ([facility]) [address] [place], [address], 05/29/2019 06:04:40 05/24/2005/28/2019 bacte rial vagin osis panel , vagin al megasphaera 1 HIGH - 2 score abnormal Calcu late total score by casey de anda the 3 indiv idual bacte rial vagin osis (BV) marke r score s toget her. Total score is inter prete d as follo ws: Total score 0-1: Indic ates the absen ce of BV. Total score 2: Indet ermin ate for BV. Addit ional clini julito data shoul d be evalu ated to estab mayda a diagn osis. Total score 3-6: Indic ates the prese nce of BV. This test was devel oped and its perfo rmanc e haider cteri stics deter mined by [facility]. It has not been clear ed or appro samantha by the Food and Drug Admin istra tion. The FDA has deter mined that such clear ance or appro daniel is not neces katrina. Not Available [facility] ([facility]) [address] [facility], [place], [address], 05/29/2019 06:04:40 05/24/20 19 05/28/2019 bacte rial vagin osis panel , vagin al rozina albicans, DIEGO NEGATI VE negati ve Not Available [facility] ([facility]) [address] [facility], [place], [address], 05/29/2019 06:04:40 05/24/20 19 05/28/2019 bacte rial vagin osis panel , vagin al rozina glabrata, DIEGO NEGATI VE negati ve This test was devel oped and its perfo rmanc e haider cteri stics deter mined by [facility]. It has not been clear ed or appro samantha by the Food and Drug Admin istra tion. The FDA has deter mined that such clear ance or appro adniel is not neces katrina. Not Available [facility] ([facility]) [address] [facility], [place], [address], 05/29/2019 06:04:40 05/24/20 19 05/27/2019 cultu re, vagin al/re ctal, strep tococ cus group B strep gp B DIEGO POSITI VE negati ve abnormal Cente rs for Disea se Contr ol and Preve ntion (CDC) and Ameri can Congr ess of Obste trici ans and Gynec ologi sts (ACOG ) guide lines for preve ntion of perin atal group B strep tococ julito (GBS) disea se speci fy co-co llect ion of a vagin al and recta l swab speci men to maxim ize sensi tivit y of GBS detec tion. Per the CDC and ACOG, swabb ing both the lower vagin a and rectu m subst antia lly incre ases the yield of detec tion jv red with sampl ing the vagin a alone . Penic illin G, ampic illin , or cefaz yvrose are indic ated for intra partu m proph ylaxi s of perin atal GBS colon izati on. Refle x susce ptibi lity testi ng shoul d be perfo rmed prior to use of clind amyci n only on GBS isola manju from penic illin -main rgic women who are consi dered a high risk for anaph ylaxi s. Treat ment with vanco mycin witho ut addit ional testi ng is warra nted if resis tance to clind amyci n is noted . Not Available [facility] ([facility]) [address] [place], [address], 05/29/2019 06:04:41 05/24/20 19 05/29/2019 pap, IG + HPV, cervi julito diagnosis: ABDIRIZAK MARTIN FOR INTRA EPITH ELIAL LESIO N OR BENI SPRAGUE . FUNGA L ORGAN ISMS MORPH OLOGI RAMSEY CONSI STENT WITH WALTER DA SPECI ES ARE PRESE NT. Not Available [facility] ([facility]) [address] [place], [address], 05/30/2019 08:13:11 05/24/2005/29/2019 pap, IG + HPV, cervi julito specimen adequacy: ABDIRIZAK Camarillo Satis facto eran for evalu ation . No endoc ervic al compo nent is ident ified . Not Available [facility] ([facility]) [address] [place], [address], 05/30/2019 08:13:11 05/24/20 19 05/29/2019 pap, IG + HPV, cervi julito clinician provided ICD10: ABDIRIZAK Camarillo R87.6 19 Not Available [facility] ([facility]) [address] [place], [address], 05/30/2019 08:13:11 05/24/20 19 05/29/2019 pap, IG + HPV, cervi julito performed by: ABDIRIZAK Cadena in, [employer] j[employer] t (ASCP ) Not Available [facility] ([facility]) [address] [place], [address], 05/30/2019 08:13:11 05/24/20 19 05/29/2019 pap, IG + HPV, cervi julito . . Not Available [facility] ([facility]) [address] [place], [address], 05/30/2019 08:13:11 05/24/20 19 05/29/2019 pap, IG + HPV, cervi julito note: COMMEN T The Pap smear is a scree cristin test desig leana to aid in the detec tion of luis alberto ligna nt and malig nant condi tions of the uteri ne cervi x. It is not a diagn ostic proce dure and shoul d not be used as the sole means of detec ting cervi julito cance r. Both false -posi tive and false -nega tive repor ts do occur . Not Available [facility] ([facility]) [address] [facility], [place], [address], 05/30/2019 08:13:11 05/24/2005/29/2019 pap, IG + HPV, cervi julito test methodology: TNP The Thin Prep( R) Image r was unabl e to read this speci men. There fore a manua l revie w was perfo rmed. Not Available [facility] ([facility]) [address] [facility], [place], [address], 05/30/2019 08:13:11 05/24/2005/30/2019 pap, IG + HPV, cervi julito HPV aptima NEGATI VE negati ve This nucle ic acid ampli ficat ion test detec ts fourt een high- risk HPV types (16,1 8,31, 33,35 ,39,4 5,51, 52,56 ,58,5 9,66, 68) witho ut diffe renti ation . Not Available [facility] ([facility]) [address] [place], [address], 05/30/2019 08:13:11 07/31/19 21 08/02/2020 cultu re, urine urine culture, routine Final report abnormal Not Available [facility] ([facility]) [address] [place], [address], 08/02/2020 14:10:59 07/31/19 21 08/02/2020 cultu re, urine result 1 Escher ichia coli abnormal Great er than 100,0 00 colon y formi ng units per mL Cefaz yvrose with an MEGHANN <=16 predi cts susce ptibi lity to the oral agent s cefac marie, cefdi rohit, cefpo doxim e, cefpr ozil, cefur oxime , cepha lexin , and lorac arbef when used for thera py of uncom plica selvin urina ry tract infec tions due to E. coli, Klebs iella pneum oniae , and Prote us mirab ilis. Not Available [facility] ([facility]) [address] [facility], [place], [address], 08/02/2020 14:10:59 07/31/19 21 08/02/2020 cultu re, urine antimicrobia l susceptibili ty Commen t S = Susce ptibl e; I = Inter media te; R = Resis tant P = Posit veronica; N = Negat veronica MICS are expre ssed in micro grams per mL Antib iotic RSLT# 1 RSLT# 2 RSLT# 3 RSLT# 4 Amoxi cilli n/Cla vulan ic Acid I Ampic illin R Cefaz yvrose S Cefep chelsey S Ceftr iaxon e S Cefur oxime S Cipro floxa jericho S Ertap enem S Genta micin S Imipe nem S Levof loxac in S Merop enem S Nitro furan toin S Piper acill in/Ta zobac gusman S Tetra cycli ne S Tobra mycin S Trime thopr im/Garcia lfa S Not Available [facility] ([facility]) [address] [facility], [place], [address], 08/02/2020 14:10:59 07/31/19 21 08/03/2020 bacte rial vagin osis panel , vagin al atopobium vaginae Low - 0 score Not Available [facility] ([facility]) [address] [facility], [place], [address], 08/05/2020 03:06:17 07/31/19 21 08/03/2020 bacte rial vagin osis panel , vagin al bvab 2 Low - 0 score Not Available [facility] ([facility]) [address] [place], [address], 08/05/2020 03:06:17 07/31/19 21 08/03/2020 bacte rial vagin osis panel , vagin al megasphaera 1 Low - 0 score Calcu late total score by casey de anda the 3 indiv idual bacte rial vagin osis (BV) marke r score s toget her. Total score is inter prete d as follo ws: Total score 0-1: Indic ates the absen ce of BV. Total score 2: Indet ermin ate for BV. Addit ional clini julito data shoul d be evalu ated to estab mayda a diagn osis. Total score 3-6: Indic ates the prese nce of BV. This test was devel oped and its perfo rmanc e haider cteri stics deter mined by [facility]. It has not been clear ed or appro samantha by the Food and Drug Admin istra tion. The FDA has deter mined that such clear ance or appro daniel is not neces katrina. Not Available [facility] ([facility]) [address] [facility], [place], [address], 08/05/2020 03:06:17 07/31/19 21 08/03/2020 bacte rial vagin osis panel , vagin al rozina albicans, DIEGO Negati ve negati ve Not Available [facility] ([facility]) [address] [facility], [place], [address], 08/05/2020 03:06:17 07/31/19 21 08/03/2020 bacte rial vagin osis panel , vagin al rozina glabrata, DIEGO Negati ve negati ve Not Available [facility] ([facility]) [address] [facility], [place], [address], 08/05/2020 03:06:17 07/31/19 21 08/03/2020 bacte rial vagin osis panel , vagin al trich vag by DIEGO Negati ve negati ve Not Available [facility] ([facility]) [address] [facility], [place], [address], 08/05/2020 03:06:17 07/31/19 21 08/03/2020 bacte rial vagin osis panel , vagin al chlamydia trachomatis, DIEGO Negati ve negati ve Not Available [facility] ([facility]) [address] [facility], [place], [address], 08/05/2020 03:06:17 07/31/19 21 08/03/2020 bacte rial vagin osis panel , vagin al neisseria gonorrhoeae, DIEGO Negati ve negati ve Not Available [facility] ([facility]) [address] [facility], [place], [address], 08/05/2020 03:06:17 07/31/19 21 08/04/2020 bacte rial vagin osis panel , vagin al hsv 1 DIEGO Negati ve negati ve Not Available [facility] ([facility]) [address] [place], [address], 08/05/2020 03:06:17 07/31/19 21 08/04/2020 bacte rial vagin osis panel , vagin al hsv 2 DIEGO Negati ve negati ve Not Available [facility] ([facility]) [address] [place], [address], 08/05/2020 03:06:17 07/31/19 21 08/02/2020 cultu re, vagin al/re ctal, strep tococ cus group B strep gp B DIEGO Negati ve negati ve Cente rs for Disea se Contr ol and Preve ntion (CDC) and Ameri can Congr ess of Obste trici ans and Gynec ologi sts (ACOG ) guide lines for preve ntion of perin atal group B strep tococ julito (GBS) disea se speci fy co-co llect ion of a vagin al and recta l swab speci men to maxim ize sensi tivit y of GBS detec tion. Per the CDC and ACOG, swabb ing both the lower vagin a and rectu m subst antia lly incre ases the yield of detec tion jv red with sampl ing the vagin a alone . Penic illin G, ampic illin , or cefaz yvrose are indic ated for intra partu m proph ylaxi s of perin atal GBS colon izati on. Refle x susce ptibi lity testi ng shoul d be perfo rmed prior to use of clind amyci n only on GBS isola manju from penic illin -main rgic women who are consi dered a high risk for anaph ylaxi s. Treat ment with vanco mycin witho ut addit ional testi ng is warra nted if resis tance to clind amyci n is noted . Not Available [facility] ([facility]) [address] [facility], [place], [address], 08/05/2020 03:06:18 09/14/19 18 XR, chest , 2 view No observ ation record ed. rakesh Pizano [address] [facility] [address], [place], [address], 09/13/2017 19:45:12 03/24/20 19 03/24/2019 CT, cervi julito spine , w/o contr ast No observ ation record ed. [facility] (Imaging) [address] [place], [address], 05/24/2019 23:42:20 10/16/19 22 10/14/2021 XR, chest No observ ation record ed. [facility] [address] [place], [address], 10/16/2021 08:58:34 11/22/19 22 11/21/2021 lab* No observ ation record ed. radha [facility] [address], [place], [address], 11/24/2021 11:58:27 07/07/19 24 07/07/2023 XR, lumba r spine No observ ation record ed. [facility] [address], [place], [address], 07/07/2023 13:55:40 09/14/19 24 09/13/2023 trans -thor acic echoc ardio gram (TTE) (PROC ) No observ ation record ed. [facility] [address], [place], [address], 09/15/2023 15:44:38 09/14/19 24 09/13/2023 trans -thor acic echoc ardio gram (TTE) (PROC ) No observ ation record ed. [facility] [address], [place], [address], 09/14/2023 15:13:01 01/18/20 24 01/18/2024 sleep study , diagn ostic (PROC ) No observ ation record ed. [facility] [address], [place], [address], 01/18/2024 14:41:03 01/18/20 24 09/14/2023 home sleep study No observ ation record ed. [facility] [address], [place], [address], 01/18/2024 14:27:32 01/18/20 24 01/18/2024 sleep study , diagn ostic (PROC ) No observ ation record ed. [facility] [address], [place], [address], 01/19/2024 09:44:18 Result Notes None recorded. 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 83328095 Active Not Available [facility] 3 22:46:10 Vulvitis 64174106 Active 2020 Not Available [facility] 3 22:46:11 Deliverie s by 971228355 Active Not Available [facility] 3 22:46:10 Acute lower urinary tract infection 725612452 Active e coli uti rx macrobid Not Available [facility] 3 22:46:11 Bacterial vaginosis 362624367 Active Not Available [facility] 3 22:46:11 Allergic reaction 106242203 Active Not Available [facility] 3 22:46:10 Candidias is of vagina 52342231 Active Not Available [facility] 3 22:46:11 Abnormal cervical Papanicol aou smear 925900197 Active 2018 pap normal Not Available [facility] 3 22:46:11 Human papilloma virus infection 654822390 Active 2019 pap normal Not Available [facility] 3 22:46:10 Hypertens veronica disorder 58441226 Active Not Available [facility] 3 22:46:10 Problem Notes None recorded. Procedures Surgical History Date Name Laterality Status Provider Name and Address Organization Details Recorded Time 9 Date of Last Pap Smear completed Carolyn Sanchez MA [facility] 07/31/2020 11:03:32 5 Control Implant Removal completed Vijay Serrano [facility] 08/14/2014 18:25:50 0 Caesarean Section completed VICTOR MANUEL Hatrley [facility] 07/31/2020 11:04:56 6 Caesarean Section completed Carolyn Sanchez MA [facility] 07/31/2020 11:05:17 4 Caesarean Section completed Carolyn Sanchez MA [facility] 07/31/2020 11:05:25 Imaging Results Imaging Date Name Status LastModified by Organization Details LastModified Time 09/13/2017 XR, chest, 2 view completed [address], [place], [address], 09/13/2017 19:45:12 03/24/2019 CT, cervical spine, w/o contrast completed [facility] ([facility]) [address] [place], [address], 05/24/2019 23:42:20 10/14/2021 XR, chest completed [facility] [address] [place], [address], 10/16/2021 08:58:34 11/21/2021 lab* completed [facility] [address], [place], [address], 11/24/2021 11:58:27 07/07/2023 XR, lumbar spine completed [address], [place], [address], 07/07/2023 13:55:40 09/13/2023 trans-thoracic echocardiogram (TTE) (PROC) completed [facility] [address], [place], [address], 09/15/2023 15:44:38 09/13/2023 trans-thoracic echocardiogram (TTE) (PROC) completed [facility] [address], [place], [address], 09/14/2023 15:13:01 01/18/2024 sleep study, diagnostic (PROC) completed [facility] [address], [place], [address], 01/18/2024 14:41:03 09/14/2023 home sleep study completed oajao [facility] [address], [place], [address], 01/18/2024 14:27:32 01/18/2024 sleep study, diagnostic (PROC) completed veronika [facility] [address], [place], [address], 01/19/2024 09:44:18 Procedure Notes None recorded. Medical Equipment None Reported. Allergies No known drug allergies Medications Name Sig Start Date Stop Date Status Note LastModified by Organization Details LastModified Time multivitami n tablet Take 1 tablet every day by oral route. 2020 active Not Available Not Available Not Avai lable atenolol 100 mg-chlortha lidone 25 mg tablet active Not Available Not Available No t Available atorvastati n 20 mg tablet Take 1 tablet every day by oral route. 2018 active Not Available Not Available Not Avai lable clindamycin HCl 300 mg capsule 01/11 completed Not Available Not Available Not Available lisinopril 20 mg-hydrochl orothiazide 12.5 mg tablet Take 1 tablet every day by oral route. 2018 active Not Available Not Available Not Avai lable azithromyci n 250 mg tablet TAKE 2 TABLETS (500 MG) BY ORAL ROUTE ONCE DAILY FOR 1 DAY THEN 1 TABLET (250 MG) BY ORAL ROUTE ONCE DAILY FOR 4 DAYS active Not Available Not Available No t Available fluconazole 150 mg tablet Take 1 tablet by oral route. active Not Available Not Available No t Available hydrocodone 5 mg-acetamin ophen 325 mg tablet active Not Available Not Available No t Available metronidazo le 0.75 % (37.5 mg/5 gram) vaginal gel Insert 1 applicato rful every day by vaginal route at bedtime for 5 days. active Not Available Not Available No t Available terconazole 0.8 % vaginal cream Insert 1 applicato rful every day by vaginal route for 3 days. 01/11 completed Not Available Not Available Not Available clindamycin HCl 150 mg capsule active Not Available Not Available Not Available penicillin V potassium 500 mg tablet Take 1 tablet twice a day by oral route for 10 days. active Not Available Not Available No t Available metronidazo le 500 mg tablet Take 1 tablet twice a day by oral route. active Not Available Not Available No t Available ciprofloxac in 500 mg tablet Take 1 tablet every 12 hours by oral route. active Not Available Not Available No t Available sulfamethox azole 800 mg-trimetho prim 160 mg tablet Take 1 tablet every 12 hours by oral route. active Not Available Not Available No t Available Condoms-Pre m Lubricated Take 1 device as needed by miscell. route as needed. active Not Available Not Available No t Available triamterene 37.5 mg-hydrochl orothiazide 25 mg capsule Take 1 capsule every day by oral route. 01/11 completed Not Available Not Available Not Available butalbital- acetaminoph en-caffeine 50 mg-325 mg-40 mg tablet active Not Available Not Available Not Available Vitamin tablet Take 1 tablet every day by oral route as directed. 2015 active Not Available Not Available Not Avai lable meloxicam 7.5 mg tablet active Not Available Not Available Not Available magnesium oxide 400 mg (241.3 mg magnesium) tablet active Not Available Not Available Not Available meclizine 25 mg tablet active Not Available Not Available Not Available ibuprofen 600 mg tablet active Not Available Not Available Not Available norethindro ne (contracept veronica) 0.35 mg tablet Take 1 tablet every day by oral route. 12/27 completed Not Available Not Available Not Available fluticasone propionate 50 mcg/actuati on nasal spray,suspe nsion active Not Available Not Available Not Available medroxyprog esterone 150 mg/mL intramuscul ar suspension Inject 1 mL every 3 months by intramusc ular route. active Not Available Not Available No t Available dicyclomine 10 mg capsule Take 1 capsule 3 times a day by oral route. active Not Available Not Available No t Available medroxyprog esterone 150 mg/mL intramuscul ar syringe active Not Available Not Available N ot Available metoprolol tartrate 25 mg tablet active Not Available Not Available No t Available nitrofurant oin monohydrate /macrocryst als 100 mg capsule TAKE 1 CAPSULE BY MOUTH EVERY 12 HOURS FOR 10 DAYS active Not Available Not Available No t Available lactulose 10 gram/15 mL oral solution Take 15 mL every day by oral route. active Not Available Not Available No t Available chlorhexidi ne gluconate 0.12 % mouthwash active Not Available Not Available No t Available Calcium with Vitamin D 600 mg-10 mcg (400 unit) tablet Take 1 tablet twice a day by oral route. 2020 active Not Available Not Available Not [facility] Mayarese Lo 0.1 mg-20 mcg (84)/10 mcg (7) tablets,3 month dose pack Take 1 tablet every day by oral route. active Not Available Not Available No t Available vits 96-ferrous fumarate 27 mg iron-folic acid 800 mcg tablet active Not Available Not Available N ot Available calcium 600 mg (as carbonate)- vitamin D3 20 mcg (800 unit) tablet Take 1 tablet twice a day by oral route for 30 days. 2016 active Not Available Not Available Not [facility] Linzess 145 mcg capsule TAKE 1 CAPSULE BY MOUTH ONCE DAILY active Not Available Not Available No t Available Xulane 150 mcg-35 mcg/24 hr transdermal patch APPLY ONE PATCH TOPICALLY ONCE A WEEK 12/27 completed Not Available Not Available Not Available Vitals Date Recorded Body height Provider Name an d Address Organization Details Last Updated DateTime 12/27/2017 160.02 cm Pauline Melton MA [facility] 018 16:10:14 Date Recorded Body mass index (BMI) Body weight Provider Name and Address Organization Details Last Updated DateTime 12/27/2017 20.9 kg/m2 77586.9 g Pauline Melton MA [facility] 12/27/2017 16:10:19 Date Recorded Body height Provider Name an d Address Organization Details Last Updated DateTime 11/22/2018 160.02 cm Nata Fan MA [facility] 11/22 13:12:28 Date Recorded Body mass index (BMI) Body weight Provider Name and Address Organization Details Last Updated DateTime 11/22/2018 20.2 kg/m2 59180.53 g Nata Fan MA [facility] 11/22/2018 13:12:47 Date Recorded Body height Provider Name an d Address Organization Details Last Updated DateTime 07/31/2020 161.29 cm Carolyn Sanchez MA [facility] 2020 11:02:39 Date Recorded Body mass index (BMI) Body weight Provider Name and Address Organization Details Last Updated DateTime 07/31/2020 22.7 kg/m2 72975.01 g Carolyn VICTOR MANUEL Sanchez [facility] 07/31/2020 11:02:45 Date Recorded Body weight Provider Name an d Address Organization Details Last Updated DateTime 01/11/2017 66972.71 adilson ElliottCharlaluisito Duffy MA [facility] 01/11/2017 11:41:42 Date Recorded Systolic blood pressure Diastolic blood pressure Provider Name and Address Organization Details Last Updated DateTime 12/27/2017 130 mm[Hg] 78 mm[Hg] Pauline Melton MA [facility] 12/27/2017 16:11:43 Date Recorded Systolic blood pressure Diastolic blood pressure Provider Name and Address Organization Details Last Updated DateTime 11/22/2018 108 mm[Hg] 80 mm[Hg] Nata Fan MA [facility] 11/22/2018 13:14:33 Date Recorded Systolic blood pressure Diastolic blood pressure Provider Name and Address Organization Details Last Updated DateTime 01/11/2017 112 mm[Hg] 80 mm[Hg] Charla Duffy MA [facility] 01/11/2017 11:41:52 Social History Question Answer Notes LastModified by Organizat ion Details LastModified Time Tobacco Smoking Status Never Smoker Edda Garza MA null, [facility] 08/14/2014 16:28:40 Do You Have An Advance Directive? No Information not available 03/06/2015 What Is Your Level Of Alcohol Consumption? Occasional Information not available 03/06/2015 Are You Blind Or Do You Have Difficulty Seeing? No Information not available 03/06/2015 Is Blood Transfusion Acceptable In An Emergency? Yes Information not available 03/06/2015 What Is Your Level Of Caffeine Consumption? None Information not available 07/31/2020 How Much Tobacco Do You Chew? None Information not available 03/06/2015 Are You Currently Employed? Yes Information not available 03/06/2015 Are You Deaf Or Do You Have Serious Difficulty Hearing? No Information not available 03/06/2015 What Type Of Diet Are You Following? REGULAR Information not available 03/06/2015 Which Illicit Or Recreational Drugs Have You Used? Pt. States None Information not available 01/11/2017 Education 2 Year College Informatio n not available 03/06/2015 What Is Your Occupation? [employer]ADE [employer] Information not available 03/06/2015 Live Alone Or With Others? With Others Information not available 03/06/2015 What Was The Date Of Your Most Recent Tobacco Screening? 07/31/2020 Information not available 07/31/2020 How Many Children Do You Have? 3 Information not available 03/06/2015 Performs Monthly Self-breast Exam? No Information no t available 03/06/2015 Do You Use Protection During Sex? Always Information not available 01/11/2017 What Is Your Relationship Status? Single Information not available 03/06/2015 Seat Belts Used Routinely Yes Information not available 03/06/2015 Are You Sexually Active? Yes Information not available 03/06/2015 How Much Tobacco Do You Smoke? No Information not available 03/06/2015 General Stress Level Low Information not available 03/06/2015 Do You Use Sunscreen Routinely? No Information not available 03/06/2015 Sex: Unknown Functional Status Question Answer Note LastModified by Organizat ion Details LastModified Time Do you have difficulty walking or climbing stairs? No Information not available 03/06/2015 Do you have difficulty doing errands alone? No Information not available 03/06/2015 Do you have difficulty dressing or bathing? No Information not available 03/06/2015 What is your exercise level? Occasional Information not available 03/06/2015 Mental Status Question Answer Note LastModified by Organization D etails LastModified Time Do you have difficulty concentrating, remembering or making decisions? No Information no t available 03/06/2015 Family History Relationship Description Onset Age of this Age Resolved Age Notes LastModified by Organization Details LastModified Time Mother Hypertensive disorder [email or web address] Not available 12/01 15:02:14 Medical History Condition Response Heart Problems N Other N High Blood Pressure Y Breast Cancer N Thyroid Problems N Kidney or Bladder Problems N GI Problems N Lung Disease N Depression N Blood Clots N Acne N Breast Problem N Eating Disorder N Anemia N Anesthesia Complications N Headaches/Migraines N Anxiety Disorder N Diabetes N Ovarian Cancer N Muscle, Joint, or Bone Problems N Blood Transfusions N Arthritis N Seizures/Epilepsy N Polyps N Infertility N Acid Reflux (GERD) N Cancer N Stroke N Abuse/Domestic Violence N Asthma N Endometriosis N High Cholesterol N Hepatitis N Liver Disease N Heart Disease N Fibromyalgia N Pre-Eclampsia N Hypertension N Osteoporosis N Kidney Disease N Gynecological History Statement/Question Response Abnormal Pap Yes Flow Moderate On BCP's at Conception? N STIs/STDs N HPV Vaccine Y Duration of Flow (days) 3 Age at Menarche 15 Current Control Method None Age at First Child 18 Frequency of Cycle (Q days) 28 Sexually Active? Y Menses Monthly Y Date of Last Pap Smear 05/24/2019 Sexual Problems? N LMP Approximate Desired Control Method None Obstetrics History GPAL:G 3 P 3 0 0 3 Type Value Multiple Births 0 Full Term 3 Induced 0 Spontaneous 0 Premature 0 Living 3 Ectopics 0 Total 3 Immunizations Vaccine Type Date Status Note Provider Nam e and Address Organization Details Recorded Time HPV9 05/24/2019 completed Not Available [facility] 07/01/2019 02:38:48 Past Encounters Encounter ID Performer Location Encounter Start Date Encounter Closed Date Diagnosis/Indication Diagnosis SNOMED-CT Code Diagnosis ICD10 Code Diagnosis Note [id number] Vijay Mcdonald ([employer]) [address] [place] [address] [phone] 0 08/14/2014 16:05:22 08/14/2014 17:49:50 Family planning surveillance [id number] Subcutaneo us contraceptive implant palpable [id number] Deliveries by [phone] [id number] Harry ([employer]) [address] [place] [address] [phone] 0 03/06/2015 15:40:17 03/06/2015 17:38:03 Gynecologic examination [id number] Family juan alberto nning surveillance [id number] Deliveries by [id number] Vijay Mcdonald ([employer]) [address] [place] [address] [id number] 0 12/02/2015 14:08:26 12/02/2015 18:36:25 Family planning surveillance 616038476 Z30.09 Deliveries by O82 Hypertensive disorder 38 185850 I10 [id number] Vijay Mcdonald ([employer]) [address] [place] [address] [phone] 0 01/11/2017 10:46:03 01/13/2017 13:19:16 Gynecologic examination 35419714 Z01.419 Exposure t o sexually transmissible disorder 327306593 Z20.2 Family juan alberto nning surveillance [id number] Z30.09 [id number] [facility] [facility] [address] [place] [address] [id number] 0 12/27/2017 15:49:28 12/27/2017 16:56:44 Gynecologic examination 21266003 Z01.419 [facility] nning surveillance 003201815 Z30.09 Chronic id iopathic constipation 72452403 K59.04 Exposure t o sexually transmissible disorder 294397403 Z20.2 [id number] [facility] [address] [place] [address] [phone] 0 11/22/2018 12:34:13 11/22/2018 15:19:33 Exposure to sexually transmissible disorder 577413240 Z20.2 Family [facility] nning surveillance 051680221 Z30.09 Would like to conceive in a year and currently would like to avoid hormonal control. Gynecologi c examination 88140869 Z01.419 Acute urin rory tract infection 334319032 N39.0 [id number] Vijay Maggie Mcdonald ([employer]) [address] [place] [address] [phone] 0 05/24/2019 15:28:14 05/24/2019 16:49:08 Active or passive immunization 682554203 Z23 Abnormal c ervical Papanicolaou smear 300229219 R87.619 Human pablo lloma virus infection 033004860 B97.7 pap 1 yr Deliveries by [id number] O[address] reptococcus carrier 5436126152 103 Z22.330 Hypertensive disorder 38 080275 I10 Family juan alberto nning surveillance 078222972 Z30.09 Would like to conceive in a year and currently would like to avoid hormonal control. Exposure t o sexually transmissible disorder 198059496 Z20.2 [id number] Vijay Mcdonald ([employer]) [address] [place] [address] 0 07/31/2020 10:59:09 08/02/2020 20:14:46 Vulvitis 93889355 N76.2 history of BV and GBS (2019) [facility] reptococcus carrier 5481187901 103 Z22.330 Family juan alberto nning surveillance 034721910 Z30.09 Would like to conceive in a year and currently would like to avoid hormonal control. Health Concerns Section Related Observation LastModified by Organization Detai ls LastModified Time None Recorded Concern Status LastModified by Organization Details LastModified Time None Recorded Advance Directives Directive N: Payers Encounter Date Sequence Insurance Name Policy Number Policy Falcon Covered Member ID Falcon Member ID Guarantor Name 01/11/2017 1 [facility] (MEDICAID HM) [id number] 0003 [facility] [id number] [facility] 12/27/2017 1 [facility] (MEDICAID HM) [id number] [id number] 11/22/2018 1 [facility] (MEDICAID HMO) [id number] 0003 [id number] [facility] 05/24/2019 1 [facility] (MEDICAID HMO) [id number] 0003 Kenyonna [place] [id number] Jillian Hullman 07/31/2020 1 [facility] (MEDICAID HMO) [id number] 0003 [facility] [id number] [facility] Notes Date Note Type Note Provider Name and Address Organization Details Recorded Time 01/11/2017 text/html Annual GYNReport ed bypatient.History:no gynecologic complaints; no change in interval history Menstrual cycle:Normal menses Urinary symptoms:No hematuria; No incontinence Vulva:No genital lesion Vagina:Normal vaginal discharge Breast:No breast pain; No breast lump; No nipple discharge Current Contraception:Condoms ; Wants to discuss contraceptive options; Patient has been off the patch for 10 months, states she does not feel right. She has been using condoms. Sexual complaints:No sexual complaints; No pain during intercourse; Normal libido Menopausal Symptoms:No menopausal symptoms; Normal vaginal lubrication Psychological symptoms:No depression; No anxiety; No PMDD Preventive measures:Encourage self breast examination; Encourage regular exercise; Encourage no tobacco use; Encourage regular mammograms starting age 40; Followed with yearly pap smears; History of abnormal pap smear/cervical dysplasia 31 Y.O presents for annual exam. She is currently using condoms for control, states the patches did not make her feel like herself. She would like to discuss new control options. MORGAN Valera 01/11/2017 18:22:49 12/27/2017 text/html Annual GYNReport ed bypatient.History:no gynecologic complaints; no change in interval history Menstrual cycle:Normal menses Urinary symptoms:No hematuria; No incontinence Vulva:No genital lesion Vagina:Normal vaginal discharge Breast:No breast pain; No breast lump; No nipple discharge Current Contraception:Condoms ; Wants to discuss contraceptive options; Patient has been off the patch for 10 months, states she does not feel right. She has been using condoms. Sexual complaints:No sexual complaints; No pain during intercourse; Normal libido Menopausal Symptoms:No menopausal symptoms; Normal vaginal lubrication Psychological symptoms:No depression; No anxiety; No PMDD Preventive measures:Encourage self breast examination; Encourage regular exercise; Encourage no tobacco use; Encourage regular mammograms starting age 40; Followed with yearly pap smears; History of abnormal pap smear/cervical dysplasia 31 Y.O aaf prior c/s x3 presents for annual exam. She is currently using condoms for control, states the patches did not make her feel like herself. She would like to discuss new control options. 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 No complaints. MORGAN Valera 11/23/2018 14:36:54 11/22/2018 text/html Annual GYNReport ed bypatient.Menstrual cycle:Normal menses Urinary symptoms:No hematuria; No incontinence Vulva:No genital lesion Vagina:Normal vaginal discharge Breast:No breast pain; No breast lump; No nipple discharge Current Contraception:Condoms Sexual complaints:No sexual complaints; No pain during intercourse; Normal libido Menopausal Symptoms:No menopausal symptoms; Normal vaginal lubrication Psychological symptoms:No depression; No anxiety; No PMDD Preventive measures:Encourage self breast examination Vijay roberts [facility] 11/23/2018 14:36:54 05/24/2019 text/html Annual GYNReport ed bypatient.Menstrual cycle:Normal menses Urinary symptoms:No hematuria; No incontinence Vulva:No genital lesion Vagina:Normal vaginal discharge Breast:No breast pain; No breast lump; No nipple discharge Current Contraception:Condoms Sexual complaints:No sexual complaints; No pain during intercourse; Normal libido Menopausal Symptoms:No menopausal symptoms; Normal vaginal lubrication Psychological symptoms:No depression; No anxiety; No PMDD Preventive measures:Encourage self breast examination 33 y/o F with 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 No complaints. Vijay roberts [facility] 05/25/2019 08:13:18 07/31/2020 text/html Vaginal/Vulvar ProblemReported bypatient.Location:[facility] Onset/Timing:present most months Duration:constant Quality:irritation Severity:moderate Context:sexually active; current contraception: (none) Associated Symptoms:no vaginal pain; no vulvar swelling/erythema; no vulvar pain; no vulvar lesions; no pelvic pain; no dyspareunia; no dyruria; no fever; no abdominal pain;vaginal itching;vaginal irritation;vulvar itching/irritation 34 y/o AAF with history of x3, BV, GBS and HTN presents for vulvar burning and irritation with possible BV Vijay roberts [facility] 07/31/2020 11:35:53 OBGyn Episode Ob Episode Information Episode Created Date Number of Fetuses Patient Bloodtype Patient rh Status Prepregnancy Weight lbs Domestic Partner Domestic Partner Phone Father Name Jack Machine Operator Status 12/02/19 16 1 CLOSED Fetus Data First Name Last Name Admitted to NICU Weight (g) Sex Living Outcome Pediatric Complications Fetus ID Race Codes Race Delivery Type 2267.96 M Full Term [id number] Juma Calculation Initial Juma Date Initial Exam Date Initial Exam Provider Initial Ultrasound Date Last Menstrual Period Date Ultra Sound Weeks Gestation 0 Eighteen To Twenty Week Juma Update Ultra Sound Date Fundal Height At Umbil Quickening Date Ultra Sound Latest Weeks Gestation Final Juma Confirmed By Final Juma Confirmed Date Final Juma Date Ultra Sound Latest Days Gestation 0 0 Menstrual History Last Menstrual Date Menses Monthly On Bcp Conception Prior Menses Frequency Hcg Plus Date Menarche Onset Age Delivery Information Delivery Date Delivery Type Labor Anesthesia Weeks Gestation Incision Type Labor Labor Length Hrs Delivered By [facility] Complications [facility] Date [facility] Discharge Information Feeding Method Contraceptive Method Maternal HG B and HCT Levels Ob Episode Information Episode Created Date Number of Fetuses Patient Bloodtype Patient rh Status Prepregnancy Weight lbs Domestic Partner Domestic Partner Phone Father Name Jack Machine Operator Status 12/02/19 16 1 CLOSED Fetus Data First Name Last Name Admitted to NICU Weight (g) Sex Living Outcome Pediatric Complications Fetus ID Race Codes Race Delivery Type 2721.55 2 F Full Term [id number] Juma Calculation Initial Juma Date Initial Exam Date Initial Exam Provider Initial Ultrasound Date Last Menstrual Period Date Ultra Sound Weeks Gestation 0 Eighteen To Twenty Week Juma Update Ultra Sound Date Fundal Height At Umbil Quickening Date Ultra Sound Latest Weeks Gestation Final Juma Confirmed By Final Juma Confirmed Date Final Juma Date Ultra Sound Latest Days Gestation 0 0 Menstrual History Last Menstrual Date Menses Monthly On Bcp Conception Prior Menses Frequency Hcg Plus Date Menarche Onset Age Delivery Information Delivery Date Delivery Type Labor Anesthesia Weeks Gestation Incision Type Labor Labor Length Hrs Delivered By Post Complications Tubal Sterilization Discharge Date Comments 0 [facility] 40 false [place] Discharge Information Feeding Method Contraceptive Method Maternal HG B and HCT Levels Ob Episode Information Episode Created Date Number of Fetuses Patient Bloodtype Patient rh Status Prepregnancy Weight lbs Domestic Partner Domestic Partner Phone Father Name Jack Machine Operator Status 12/02/19 16 1 CLOSED Fetus Data First Name Last Name Admitted to NICU Weight (g) Sex Living Outcome Pediatric Complications Fetus ID Race Codes Race Delivery Type 2267.96 M Full Term [id number] Juma Calculation Initial Juma Date Initial Exam Date Initial Exam Provider Initial Ultrasound Date Last Menstrual Period Date Ultra Sound Weeks Gestation 0 Eighteen To Twenty Week Juma Update Ultra Sound Date Fundal Height At Umbil Quickening Date Ultra Sound Latest Weeks Gestation Final Juma Confirmed By Final Juma Confirmed Date Final Juma Date Ultra Sound Latest Days Gestation 0 0 Menstrual History Last Menstrual Date Menses Monthly On Bcp Conception Prior Menses Frequency Hcg Plus Date Menarche Onset Age Delivery Information Delivery Date Delivery Type Labor Anesthesia Weeks Gestation Incision Type Labor Labor Length Hrs Delivered By Post Complications Tubal Sterilization Discharge Date Comments 6 [facility] 40 false [place] Discharge Information Feeding Method Contraceptive Method Maternal HG B and HCT Levels
--- NOTE | 2024-07-10 16:08 | ED_ITS ---
HPI - General Chief complaint: Abdominal Pain <Morelia Valadez APRN - Last Filed: 07/10/24 16:10> Stated complaint: +PREG TEST ABD PAIN LMP 22DECEMBER <Morelia Valadez APRN - Last Filed: 07/10/24 16:10> Time Seen by Provider: 07/10/24 15:20 <Morelia Valadez APRN - Last Filed: 07/10/24 16:10> Focused HPI: Patient is a 38-year-old female presents to the ER with complaints of nausea and abdominal cramping after taking a positive test at home. She denies any vaginal bleeding. Patient reports her last menstrual period was June 04, 2024. She reports her last was approximately 15 years ago. Patient has not had an OBGYN appointment yet. She denies any medical history related to this ER visit. Patient denies upper abdominal pain, shortness a breath, bilateral leg swelling, recent fevers. GENERAL: Well-appearing, well-nourished, and in no acute distress. HEAD: Normocephalic, atraumatic. CHEST: Clear to auscultation. ?No respiratory distress. HEART: Regular rate and rhythm.? NEURO: ?Alert and oriented x3. Patient screened in triage and initial orders placed.? ?Additional care and disposition to be based upon?diagnostic testing and treatment. <Morelia Valadez APRN - Last Filed: 07/10/24 16:10> Related Data Home medications: Home Medications ?Medication ?Instructions ?Recorded ?Confirmed ?Last Taken ?Type metoprolol tartrate 25 mg tablet 25 mg PO BID 08/23/20 01/26/22 Unknown History magnesium oxide 400 mg (241.3 mg 400 mg DAILY 01/26/22 02/02/23 Unknown History magnesium) tablet <Morelia Valadez APRN - Last Filed: 07/10/24 16:10> Allergies/Adverse reactions: Allergies Allergy/AdvReac Type Severity Reaction Status Date / Time No Known Allergies Allergy Verified 07/10/24 14:22 <Morelia Valadez APRN - Last Filed: 07/10/24 16:10> PMFSH Past Medical History Medical History: Medical History Hypertension <Morelia Valadez APRN - Last Filed: 07/10/24 16:10> Family History Family History: Family History Mother Hypertension <Morelia Valadez APRN - Last Filed: 07/10/24 16:10> Social History Social History: Social History Smoking status: Never smoker Alcohol intake: never <Morelia Valadez APRN - Last Filed: 07/10/24 16:10> Exam 2 Narrative: APPEARANCE: No apparent distress. Head: atraumatic. EYES: EOMI, NOSE: Atraumatic NECK: Trachea midline RESPIRATORY: No increased rate of breathing CARDIOVASCULAR: RRR, ABDOMINAL: Non-distended soft nontender no guarding rebound Pelvic exam: Cervical os closed with physiologic discharge, cervical motion tenderness MUSCULOSKELETAl: No obvious deformities NEURO: Alert. Moving 4/4 extremities SKIN:: Warm, dry. Normal color PSYCHIATRIC: Normal affect <Yusef Vanessa MD - Last Filed: 07/10/24 18:50> Course Vital Signs Vital signs: Vital Signs Temperature 97.7 F 07/10/24 14:22 Pulse Rate 87 07/10/24 14:22 Respiratory Rate 20 07/10/24 14:22 Blood Pressure 129/84 07/10/24 14:22 Oxygen Delivery Room Air 07/10/24 14:22 Temperature 97.7 F 07/10/24 14:22 Pulse Rate 81 07/10/24 18:25 Respiratory Rate 16 07/10/24 18:25 Blood Pressure 124/85 07/10/24 18:25 Pulse Oximetry 100 07/10/24 18:25 Oxygen Delivery Room Air 07/10/24 14:22 <Morelia Valadez APRN - Last Filed: 07/10/24 16:10> Vital Signs Temperature 97.7 F 07/10/24 14:22 Pulse Rate 87 07/10/24 14:22 Respiratory Rate 20 07/10/24 14:22 Blood Pressure 129/84 07/10/24 14:22 Oxygen Delivery Room Air 07/10/24 14:22 Temperature 97.7 F 07/10/24 14:22 Pulse Rate 81 07/10/24 18:25 Respiratory Rate 16 07/10/24 18:25 Blood Pressure 124/85 07/10/24 18:25 Pulse Oximetry 100 07/10/24 18:25 Oxygen Delivery Room Air 07/10/24 14:22 <Yusef Vanessa MD - Last Filed: 07/10/24 18:50> MDM - OB/Uterine Contractions MDM Narrative Medical decision making narrative: -Course: 38-year-old female presenting with abdominal cramping nausea in . Transvaginal ultrasound showed a intrauterine fetus at 6 weeks and 3 days. heart rate was 84. Patient was given fluid right rehydration. Cervical os was closed on pelvic exam. Urinalysis not indicative infection. Patient was educated that the low heart rate may be a sign of impending miscarriage. Patient instructed to follow-up with her OBGYN. -DDX includes but is not limited to: Threatened miscarriage, normal - -Independent interpretation of studies: Labs and imaging reviewed -Shared decision making / Disposition: Discharge -RX doxylamine, vitamin B6 <Yusef Vanessa MD - Last Filed: 07/10/24 18:50> Lab Data Result diagrams: 07/10/24 17:13 07/10/24 17:13 <Morelia Valadez APRN - Last Filed: 07/10/24 16:10> Labs: Lab Results 07/10/24 07/10/24 Range/Units 17:13 18:25 WBC 6.5 (4.5-10.0) K/mm3 RBC 3.71 L (4.2-5.4) M/mm3 Hgb 12.0 (12.0-15.0) g/dL Hct 35.0 L (37.0-47.0) % MCV 94.3 (80-100) fl MCH 32.3 (26-34) pg MCHC 34.3 (32-36) g/dl RDW 12.5 (11.5-14.5) % Plt Count 303 (150-375) k/mm3 MPV 9.9 (7.4-10.4) fl Immature Gran % (Auto) 0.0 (0-0.5) % Neut % (Auto) 49.9 (45.5-73.1) % Lymph % (Auto) 35.2 (18.3-44.2) % [place] % (Auto) 7.6 (2.6-8.5) % Eos % (Auto) 6.4 H (0-4.4) % Baso % (Auto) 0.9 (0.2-1.2) % Lymph # (Auto) 2.27 (0.9-3.2) K/mm3 [place] # (Auto) 0.5 (0.1-0.6) K/mm3 Eos # (Auto) 0.4 H (0-0.3) K/mm3 Baso # (Auto) 0.1 (0.0-0.1) K/mm3 Abs Immat Gran (auto) 0.00 (0.00-0.031) K/mm3 Absolute Neuts (auto) 3.2 (1.3-6.7) K/mm3 Absolute Nucleated RBC 0.000 (0.0-0.012) K/mm3 Nucleated RBC % 0.0 (0.0-0.2) % Sodium 136 L (137-145) mmol/L Potassium 3.7 (3.4-5.0) mmol/L Chloride 103 (98-107) mmol/L Carbon Dioxide 21 L (22-30) mmol/L Anion Gap 12 (4-12) mmol/L BUN 9 (7-17) mg/dL Creatinine 0.58 L (0.7-1.0) mg/dL Estim Creat Clear Calc 93 ml/min Estimated GFR > 60 (59 - ) Glucose 94 (65-110) mg/dL Calcium 9.3 (8.4-10.2) mg/dL Total Bilirubin 0.7 (0.2-1.3) mg/dL AST 20 (14-36) U/L ALT 11 (6-35) U/L Alkaline Phosphatase 64 (38-126) U/L Total Protein 8.0 (6.3-8.2) g/dL Albumin 4.5 (3.5-5.1) g/dL Beta HCG, Quant Pending Urine Color Yellow (Yellow) Urine Appearance Clear (Clear) Urine pH 6.5 (5.0-9.0) Ur Specific [place] 1.019 (1.001-1.035) Urine Protein Negative (Negative) mg/dL Urine Glucose (UA) Negative (Negative) mg/dL Urine Ketones Trace H (Negative) mg/dL Ur Blood (Man) Negative (Negative) Urine Nitrate Negative (Negative) Urine Bilirubin Negative (Negative) Urine Urobilinogen 1.0 (<2.0) mg/dL Leukocyte Esterase Rfl Negative (Negative) SACHIN/UL POC Urine HCG, Qual Positive (Negative) <Morelia Valadez, I&C TECH - Last Filed: 07/10/24 16:10> Lab Results 07/10/24 07/10/24 Range/Units 17:13 18:25 WBC 6.5 (4.5-10.0) K/mm3 RBC 3.71 L (4.2-5.4) M/mm3 Hgb 12.0 (12.0-15.0) g/dL Hct 35.0 L (37.0-47.0) % MCV 94.3 (80-100) fl MCH 32.3 (26-34) pg MCHC 34.3 (32-36) g/dl RDW 12.5 (11.5-14.5) % Plt Count 303 (150-375) k/mm3 MPV 9.9 (7.4-10.4) fl Immature Gran % (Auto) 0.0 (0-0.5) % Neut % (Auto) 49.9 (45.5-73.1) % Lymph % (Auto) 35.2 (18.3-44.2) % [place] % (Auto) 7.6 (2.6-8.5) % Eos % (Auto) 6.4 H (0-4.4) % Baso % (Auto) 0.9 (0.2-1.2) % Lymph # (Auto) 2.27 (0.9-3.2) K/mm3 [place] # (Auto) 0.5 (0.1-0.6) K/mm3 Eos # (Auto) 0.4 H (0-0.3) K/mm3 Baso # (Auto) 0.1 (0.0-0.1) K/mm3 Abs Immat Gran (auto) 0.00 (0.00-0.031) K/mm3 Absolute Neuts (auto) 3.2 (1.3-6.7) K/mm3 Absolute Nucleated RBC 0.000 (0.0-0.012) K/mm3 Nucleated RBC % 0.0 (0.0-0.2) % Sodium 136 L (137-145) mmol/L Potassium 3.7 (3.4-5.0) mmol/L Chloride 103 (98-107) mmol/L Carbon Dioxide 21 L (22-30) mmol/L Anion Gap 12 (4-12) mmol/L BUN 9 (7-17) mg/dL Creatinine 0.58 L (0.7-1.0) mg/dL Estim Creat Clear Calc 93 ml/min Estimated GFR > 60 (59 - ) Glucose 94 (65-110) mg/dL Calcium 9.3 (8.4-10.2) mg/dL Total Bilirubin 0.7 (0.2-1.3) mg/dL AST 20 (14-36) U/L ALT 11 (6-35) U/L Alkaline Phosphatase 64 (38-126) U/L Total Protein 8.0 (6.3-8.2) g/dL Albumin 4.5 (3.5-5.1) g/dL Beta HCG, Quant Pending Urine Color Yellow (Yellow) Urine Appearance Clear (Clear) Urine pH 6.5 (5.0-9.0) Ur Specific [place] 1.019 (1.001-1.035) Urine Protein Negative (Negative) mg/dL Urine Glucose (UA) Negative (Negative) mg/dL Urine Ketones Trace H (Negative) mg/dL Ur Blood (Man) Negative (Negative) Urine Nitrate Negative (Negative) Urine Bilirubin Negative (Negative) Urine Urobilinogen 1.0 (<2.0) mg/dL Leukocyte Esterase Rfl Negative (Negative) SACHIN/UL POC Urine HCG, Qual Positive (Negative) <Yusef Vanessa MD - Last Filed: 07/10/24 18:50> Discharge Plan Discharge Clinical Impression: Miscarriage, threatened, early <Morelia Valadez APRN - Last Filed: 07/10/24 16:10> Patient Disposition: Home, Self-Care <Morelia Valadez APRN - Last Filed: 07/10/24 16:10> Condition: Stable <Morelia Valadez APRN - Last Filed: 07/10/24 16:10> Instructions: Antibiotic Form, Threatened Miscarriage (ED) <Morelia Valadez APRN - Last Filed: 07/10/24 16:10> Additional Instructions: You are 6 weeks and 3 days . Your fetus has a very slow heart rate which may be a sign of impending miscarriage. Please call your TEXTILE WORKER tomorrow to schedule an appointment. Return if you develop severe abdominal pain, vaginal bleeding or loss of consciousness per <Morelia Valadez APRN - Last Filed: 07/10/24 16:10> Patient Language: Honduran <Morelia Valadez APRN - Last Filed: 07/10/24 16:10> Prescriptions: New doxylamine succinate 25 mg tablet 25 mg PO HS PRN (Reason: nausea) Qty: 30 0RF pyridoxine (vitamin B6) 25 mg tablet 25 mg PO DAILY Qty: 30 0RF No Action naproxen 500 mg tablet 500 mg PO BID PRN (Reason: pain) 7 Days Qty: 14 0RF nitrofurantoin monohyd/m-cryst [Macrobid] 100 mg capsule 100 mg PO Q12H 5 Days Qty: 10 0RF Rx Instructions: must administer with a meal/food metoprolol tartrate 25 mg tablet 25 mg PO BID ondansetron 4 mg tablet,disintegrating 4 mg PO Q8H PRN (Reason: nausea and vomiting) Qty: 10 0RF magnesium oxide 400 mg (241.3 mg magnesium) tablet 400 mg DAILY methocarbamol 500 mg tablet 500 mg PO Q6H PRN (Reason: muscle pain/spasm) Qty: 30 0RF <Morelia Valadez APRN - Last Filed: 07/10/24 16:10> Follow-up/Referrals: Bella,Tanya Carvalho [Primary Care Provider] - <Morelia Valadez APRN - Last Filed: 07/10/24 16:10>
[2024-07-10] MEDS: ONDANSETRON HCL ODT 4 MG TABLET PO (17:14)
[2024-07-10] MEDS: SODIUM CHLORIDE 0.9% IV 1,000 ML 999 ML IV CONT ×2 (17:14→17:45)
[2024-07-10 17:15] VITALS: BP 132/95; PULSE 74; RESP 15; O2SAT 100
[2024-07-10 17:17] LABS: Basophils Absolute Auto 0.1 K/mm3 (0.0-0.1); Basophils Percent Auto 0.9 % (0.2-1.2); Eosinophils Absolute Auto 0.4 K/mm3 (0-0.3); Eosinophils Percent Auto 6.4 % (0-4.4); Lymphocytes Absolute Auto 2.27 K/mm3 (0.9-3.2); Lymphocytes Percent Auto 35.2 % (18.3-44.2); Mean Corpuscular HGB Conc 34.3 g/dl (32-36); Mean Corpuscular Hemoglobin 32.3 pg (26-34); Mean Corpuscular Volume 94.3 fl (80-100); Mean Platelet Volume 9.9 fl (7.4-10.4); Monocytes Absolute Auto 0.5 K/mm3 (0.1-0.6); Monocytes Percent Auto 7.6 % (2.6-8.5); Neutrophils Absolute Auto 3.2 K/mm3 (1.3-6.7); Neutrophils Percent Auto 49.9 % (45.5-73.1); Platelet Count Result 303 k/mm3 (150-375); Red Blood Count 3.71 M/mm3 (4.2-5.4); Red Cell Distribution Width 12.5 % (11.5-14.5); White Blood Count 6.5 K/mm3 (4.5-10.0)
--- OUTSIDE RECORDS SUMMARY | 2024-07-10 17:21 | XMS_ITS | CONTINUITY OF CARE DOCUMENT ---
Author Name ariane thakkar Address Unknown Organization [facility] Address [address] [place] [address] Phone [phone] Care Team Providers Care Welt Insole Channeler Name Role Phone Laureen Noble MD Unavailable THALIA MCDONALD MD Unavailable THALIA MCDONALD MD Unavailable [phone] PROBLEMS Condition Status Date Provider Notes [...] In-person encounter Office Visit Laureen Noble MD [facility] - In-person encounter Office Visit Laureen Noble MD [facility] Sleep disorder - In-person encounter Office Visit Laureen Noble MD [facility] - In-person encounter Office Visit Laureen Noble MD [facility] - In-person encounter Office Visit Laureen Noble MD [facility] Back pain - In-person encounter Office Visit Laureen Noble MD [facility] Family History of Hypertension:Shortness of breathPalpitationsFatigueSyncopeDizziness - In-person encounter Office Visit Jam Adamson MD [facility] Sinus tachycardiaHTN essential VITAL SIGNS Date [...] blood pressure, diastolic 80 mm[Hg] Ca therine [facility] blood pressure, systolic 114 mm[Hg] Cat herine [facility] oxygen saturation, oximetry 90 % Madonna [facility] pulse rate 91 /min [facility] respiratory rate E&M 16 /min Catheri ne Leopoldo weight E&M 137 [lb_av] [facility] blood pressure, cuff size large Ca therine [facility] height E&M 63 [in_i] [facility] Body Mass Index (Ratio) 20.94 kg/m2 Will [...] Burgess respiratory rate E&M 15 /min Adri [facility] Body Mass Index (Ratio) 20.90 kg/m2 [facility] weight E&M 118 [lb_av] Adri Burgess blood pressure, diastolic 80 mm[Hg] Estevan betancourt Raymond RN blood pressure, systolic 120 mm[Hg] Julio Raymond RN blood pressure, diastolic 97 mm[Hg] Me epps [facility] blood pressure, systolic 134 mm[Hg] Natalie deutsch [facility] pulse rate 118 /min Adri [facility] oxygen saturation, oximetry 97 % Adri [facility] respiratory rate E&M 16 /min Adri [facility] Body Mass Index (Ratio) 20.37 kg/m2 [facility] weight E&M 115 [lb_av] Adri [facility] blood pressure, diastolic 99 mm[Hg] Me epps [facility] blood pressure, systolic 149 mm[Hg] Natalie deutsch [facility] pulse rate 108 /min Adri [facility] oxygen saturation, oximetry 98 % Adri [facility] respiratory rate E&M 14 /min Adri [facility] Body Mass Index (Ratio) 20.90 kg/m2 [facility] weight E&M 118 [lb_av] Adri [facility] height E&M 63 [in_i] Adri [facility] ALLERGIES No Known Drug Allergies RESULTS [...] Provider smoking status Never smoker Brooklynn zee SPACE AND STORAGE CLERK Exercise counseling Yes Brooklynn Fuentes SPACE AND STORAGE CLERK smoking status Never smoker Sae Segura social [...] MD smoking status Never smoker Adri betancourt social history reviewed E&M revi ewed - no changes required Jam Adamson MD smoking status Never smoker Adri betancourt FUNCTIONAL STATUS Date Observation Value Provider periodic limb movement index absent (0) Julio Andrade RN FAMILY HISTORY Family Member Condition Mother Family History of Hy pertension: INSURANCE PROVIDERS Payer name Policy type / Coverage type [facility] [place] Medicaid [id number] ADVANCE DIRECTIVES Name Date DISCUSSED - NO DECISION MADE TREATMENT PLAN Date Name Performer [id number],C, H er updated medication list for this problem includes: Metoprolol Tartrate 25 Mg Tablet (Metoprolol tartrate) ..... Take 1 tablet by mouth twice a day Laureen Noble MD [id number],C, H er updated medication list for this problem includes: Metoprolol Tartrate 25 Mg Tablet (Metoprolol tartrate) ..... Take 1 tablet by mouth twice a day Laureen Noble MD [id number],C, B P today: 114/80 P rior BP: 126/85 (09/10/2017) Prior 10 Yr Risk Heart Disease: Not enough information (03/06/2016) Her updated medication list for this problem includes: Metoprolol Tartrate 25 Mg Tablet (Metoprolol tartrate) ..... Take 1 tablet by mouth twice a day Laureen Noble MD [id number],B, N o recurrence Laureen Noble MD Cardiology:reviewed [...] Electrophysiology: O rders: S leep Study Home (CPT-50017) 9 9215 HIGH 40-54min (CPT-68208) Sae Ellisonmedzaguanaco Electrophysiology Sae Ellisonmedzai Electrophysiology:no recurrence [...] make follow up appt Orders: E KG (CPT-35017) 9 9215 HIGH 40-54min (CPT-36483) [facility] Electrophysiology: O rders: H olter Monitor 48 hr (CPT-02956) C omplete Echo (03766) 9 9215 HIGH 40-54min (CPT-06148) [facility] Electrophysiology:No real SOB, w ill check echo Sae [facility] Electrophysiology: H er updated medication list for [...] suggestion of sciatica. Orders: X -Ray, Other (CPT-96434) K idney Ultrasound (CPT-15876) Laureen Noble MD Cardiology:will rx tenroretic Melgar ameena Adamson MD Cardiology:since , nati Adamson MD Date Name Complete Echo Sleep Study Home Holter Monitor 48 hr Complete Echo TSH, free T4, total T3 COMPREHENSIVE METABO LIC PANEL, W/EGFR LIPID PANEL CBC (INCLUDES DIFF/P LT) Holter Monitor 24 Hr Complete Echo ZIO Holter Test, Urin e URINALYSIS, COMPLETE Kidney Ultrasound X-Ray, Other DLCO - 50589 FRC - 58246 FVC - 96168 THYROID PANEL WITH T SH, 3RD GENERATION [...] completed EKG Laureen quach MD completed SNOMED-CT: [id number] Current Medications Documented Laureen Noble MD completed Stress EKG Laureen quach MD completed FVC - 48326 Laureen quach MD completed FRC - 70325 Laureen quach MD completed DLCO - 48415 Laureen quach MD completed Event Monitor Lin Oshea completed Ambulatory BP Laureen quach MD 24 hours completed EKG Laureen quach MD completed SNOMED-CT: [id number] Current Medications Documented Laureen Noble MD completed EKG Jam Adamson MD complete d SNOMED-CT: [id number] Current Medications Documented Jam Adamson MD completed
[2024-07-10 17:28] LABS: Alanine Aminotransferase 11 U/L (6-35); Albumin Level 4.5 g/dL (3.5-5.1); Alkaline Phosphatase 64 U/L (38-126); Anion Gap 12 mmol/L (4-12); Aspartate Amino Transferase 20 U/L (14-36); Bilirubin,Total 0.7 mg/dL (0.2-1.3); Blood Urea Nitrogen 9 mg/dL (7-17); Calcium 9.3 mg/dL (8.4-10.2); Carbon Dioxide 21 mmol/L (22-30); Chloride 103 mmol/L (98-107); Estimated CRCL calculation 93 ml/min; Estimated Glomerular Filt Rate > 60; Glucose 94 mg/dL (65-110); Potassium 3.7 mmol/L (3.4-5.0); Sodium 136 mmol/L (137-145)
[2024-07-10 18:25] VITALS: BP 124/85; PULSE 81; RESP 16; O2SAT 100
[2024-07-10 18:27] LABS: Add Urine Microscopic? NO; Appearance Urine Clear (Clear); Bilirubin Urine Negative (Negative); Blood Urine Negative (Negative); Color Urine Yellow (Yellow); Glucose Urine UA Negative (Negative); Ketones Urine Trace mg/dL (Negative); Leukocyte Esterase Ur Negative LEU/UL (Negative); Nitrate Urine Negative (Negative); Protein Urine Negative (Negative); Specific Grav Ur 1.019 (1.001-1.035); pH Urine 6.5 (5.0-9.0)
[2024-07-10 18:27] LABS: BEDSIDEPREGUCG Positive (Negative)
[2024-07-10 19:23] VITALS: BP 123/89; PULSE 91; RESP 15; TEMP 36.6; O2SAT 100
== END 2024-07-10 19:26 | disposition home or self-care (01) ==
PROVIDERS: Registered Nurse; Emergency Provider Emergency Medicine; PCP Internal Medicine Infectious Disease
DX: O20.0 Threatened abortion (principal); Z3A.01 Less than 8 weeks gestation of pregnancy; I10 Essential (primary) hypertension
CPT/HCPCS: 36415; 76801; 76817; 80053; 81003; 81025; 84702; 85025; 96360; 96361; 99284; A9270; J7030

== ENCOUNTER 2025-01-29 08:00 | Observation (INO) | payer OTHER, SELFPAY ==
[2025-01-29] VITALS (45 sets, daily range): BP systolic 53–127; BP diastolic 44–80; PULSE 98–136; O2SAT 98–100; BMI 26.2
--- NOTE | 2025-01-29 08:00 | OBADM ---
This patient, Jillian Boles, admitted to the OB room OB Post 116 for observation. Patient/family oriented to hospital policies and general routines including ID bracelet, bed and alarms, visiting hours, pain management, procedures, bathroom and other care routines, personal items, smoking policy, room service/diet, and visiting hours. Patient/Family are encouraged to report perceived risks to care and to ask questions if they do not understand what they are told or what they should do.
[2025-01-29 09:08] LABS: Add Urine Microscopic? NO; Appearance Urine Clear (Clear); Glucose Urine UA Negative (Negative); Leukocyte Esterase Ur Negative LEU/UL (Negative); Nitrate Urine Negative (Negative); Specific Grav Ur 1.008 (1.001-1.035)
--- NOTE | 2025-01-29 11:28 | PM.OBTRLD ---
OB - Triage/Final Diagnosis Visit Information Date of evaluation: 01/29/25 Reason for evaluation: threatened labor Comments/Additional reasons for admission: I have assessed the risk for this patient, Jillian Boles, and determined that she would benefit from observation care. Evaluation Laboratory results: Laboratory Tests 01/29/25 08:30 Urine Color Yellow Urine Appearance Clear Urine pH 6.5 Ur Specific [place] 1.008 Urine Protein Negative Urine Glucose (UA) Negative Urine Ketones Negative Ur Blood (Man) Negative Urine Nitrate Negative Urine Bilirubin Negative Urine Urobilinogen 0.2 Ur Leukocyte Esterase Negative Vital signs: Vital Signs - 24 hr 01/29/25 08:36 01/29/25 08:41 01/29/25 08:42 Pulse Rate 105 H Blood Pressure 126/80 Pulse Oximetry 99 99 Oxygen Delivery 01/29/25 08:44 01/29/25 08:45 01/29/25 08:46 Pulse Rate 104 H Blood Pressure 127/77 Pulse Oximetry 99 Oxygen Delivery Room Air 01/29/25 08:51 01/29/25 08:56 01/29/25 09:00 Pulse Rate 104 H Blood Pressure 109/68 Pulse Oximetry 99 98 Oxygen Delivery 01/29/25 09:01 01/29/25 09:06 01/29/25 09:11 Pulse Rate Blood Pressure Pulse Oximetry 99 100 100 Oxygen Delivery 01/29/25 09:15 01/29/25 09:16 01/29/25 09:21 Pulse Rate 111 H Blood Pressure 53/44 L Pulse Oximetry 100 99 Oxygen Delivery 01/29/25 09:26 01/29/25 09:30 01/29/25 09:31 Pulse Rate 106 H Blood Pressure 111/77 Pulse Oximetry 100 100 Oxygen Delivery 01/29/25 09:36 01/29/25 09:41 01/29/25 09:45 Pulse Rate 110 H Blood Pressure 115/72 Pulse Oximetry 99 98 Oxygen Delivery 01/29/25 09:46 01/29/25 09:51 01/29/25 09:56 Pulse Rate Blood Pressure Pulse Oximetry 99 100 100 Oxygen Delivery 01/29/25 10:00 01/29/25 10:01 01/29/25 10:06 Pulse Rate 111 H Blood Pressure 114/64 Pulse Oximetry 100 100 Oxygen Delivery 01/29/25 10:11 01/29/25 10:15 01/29/25 10:16 Pulse Rate 101 H Blood Pressure 123/75 Pulse Oximetry 100 100 Oxygen Delivery 01/29/25 10:21 01/29/25 10:26 01/29/25 10:30 Pulse Rate 110 H Blood Pressure 110/72 Pulse Oximetry 100 100 Oxygen Delivery 01/29/25 10:31 01/29/25 10:36 01/29/25 10:41 Pulse Rate Blood Pressure Pulse Oximetry 99 98 100 Oxygen Delivery 01/29/25 10:45 01/29/25 10:46 01/29/25 10:51 Pulse Rate 116 H Blood Pressure 104/64 Pulse Oximetry 100 100 Oxygen Delivery 01/29/25 10:56 01/29/25 11:00 01/29/25 11:01 Pulse Rate 110 H Blood Pressure 110/68 Pulse Oximetry 100 100 Oxygen Delivery 01/29/25 11:06 01/29/25 11:11 01/29/25 11:15 Pulse Rate 104 H Blood Pressure 111/66 Pulse Oximetry 100 100 Oxygen Delivery 01/29/25 11:16 Pulse Rate Blood Pressure Pulse Oximetry 100 Oxygen Delivery
== END 2025-01-29 11:35 | disposition home or self-care (01) ==
PROVIDERS: Admitting Provider Obstetrics & Gynecology; PCP Internal Medicine Infectious Disease; Visit Provider Obstetrics & Gynecology
DX: O47.03 False labor before 37 completed weeks of gestation, third trimester (principal); Z3A.35 35 weeks gestation of pregnancy
CPT/HCPCS: 81003; A9270; G0378

== ENCOUNTER 2025-02-21 03:38 | Observation (INO) | payer OTHER, SELFPAY ==
--- OUTSIDE RECORDS SUMMARY | 2025-02-20 10:25 | XMS_ITS | Encounter Summary ---
Author Organization [facility] Address [address] [place] [address] Care Team Providers Care Internal Recruiter Name Role Phone Unavailable Primary Care Provider Unavailabl e Reason for Referral * (Routine) - Open Specialty Diagnoses / Procedures Referred By Contac t Referred To Contact Diagnoses arrhythmia affecting , antepartum (HCC) Fourth (HCC) Multigravida of advanced maternal age in third trimester (HCC) 36 weeks gestation of (HCC) Procedures Biophysical Profile w ROSET Kassidy An MD [address] [address] Phone: tel: fax: Referral ID Status Reason Start Date Expiration Date Visits Re quested Visits Authorized [id number] Open 02/09/2025 02/09/2026 4 4 Reason for Visit * Reason Comments Ultrasound Non-stress Test Biophysical Profile * (Routine) - Open Specialty Diagnoses / Procedures Referred By Contac t Referred To Contact Diagnoses arrhythmia affecting , antepartum (HCC) Fourth (HCC) Multigravida of advanced maternal age in third trimester (HCC) 36 weeks gestation of (HCC) Procedures Biophysical Profile w ROSET Kassidy An MD [address] [facility] [address] [place] [address] Phone: tel: fax: Referral ID Status Reason Start Date Expiration Date Visits Re quested Visits Authorized [id number] Open 02/09/2025 02/09/2026 4 4 Encounter Details Date Type Department Care Team (Latest Contact Info) Description 02/20/2025 10:25 AM CDT - 02/20/2025 11:59 PM CDT Hospital Encounter [facility] [address] [place] [address] Freddy Holbrook DO [address]ES [address] [phone] STRESS ANALYST Discharge Disposition: Home or Self Care Social History Tobacco Use Types Packs/Day Years Used Date Smoking Tobacco: Never Assessed Estimated Date of Delivery Comme nts Yes 03/05/2025 Based on Ultraso und Sex and Gender Information Value Date Recorded Sex Assigned at Not on file Legal Sex Female 5:34 AM BARTACKER Gender Identity Not on file Sexual Orientation Not on file documented as of this encounter Last Filed Vital Signs Vital Sign Reading Time Taken Comments Blood Pressure 128/81 02/20/2025 11:23 AM CDT Pulse 107 02/20/2025 11:23 AM CDT Temperature - - Respiratory Rate - - Oxygen Saturation - - Inhaled Oxygen Concentration - - Weight - - Height - - Body Mass Index - - documented in this encounter Medications at Time of Discharge metoprolol succinate XL 24hr (Toprol XL) 25 MG tablet Take 1 (one) tablet by mouth 2 times daily documented as of this encounter Progress Notes * Beckie Ram RN - 02/20/2025 11:26 AM CDT Patient here today for NST/BPP performed at [place] 38w1d for PAC's seen on prior ultrasounds. No PAC's heard on NST today. Patient reports positive movement. Patient continues to have mild to moderate contractions intermittently. Patient is scheduled for IOL on 02/26/[address] Ayala at [facility]. Denies cramping, bleeding, and leakage of fluid. Patient denies headache, epigastric pain and visual changes. Name: Jillian Boles Date of : 1985 Today's Date: 02/20/2025 38w1d NST RESULTS (RIVERA) OBJECTIVE FINDINGS , Pulse: 107, , BP: 128/81 NST Indication(s): Other (Comment) ( PAC's.) Uterine Irritability: No Contractions: Not present Frequency: x4 Duration (sec) Range: 70 secs Perceived Intensity: Moderate OBJECTIVE FINDINGS Movement: Present Monitoring Mode: External Baseline: 120 BPM (ultrasound monitor moved at 1051 from lower abdomen to mid to upper abdomen and again at 1110 from mid to upper to lower abdomen due to repositioning/movement.) Variability: Moderate Decelerations: None Accelerations: Yes OTHER INFORMATION Beckie Ram RN documented in this encounter Plan of Treatment Not on file documented as of this encounter Procedures Procedure Name Priority Date/Time Associated Diagnosis Comments BIOPHYSICAL PROFILE W NST Routine 02/20/2025 11:16 AM CDT arrhythmia affecting , antepartum (HCC) Fourth (HCC) Multigravida of advanced maternal age in third trimester (HCC) 36 weeks gestation of (HCC) documented in this encounter Results * Biophysical Profile w NST (02/20/2025 11:16 AM CDT) Linked Results Indication ======== arrhythmia Resolved on 02/13 Ultrasound Exam Chronic hypertension (CHTN) complicating Advanced maternal age (AMA), multigravida History ====== OB History 4. Para 3 [id number] 1. live 2003. Gest. age 37 w + 0 d. Weight 2,948 g. Sex of child: male. Details: delivery 2. live 2007. Gest. age 37 w + 0 d. Weight 2,438 g. Sex of child: male. Details: delivery 3. live 2009. Gest. age 37 w + 0 d. Weight 2,268 g. Sex of child: female. Details: delivery Lab Tests Test Date Result NIPT Low risk, Female Maternal Assessment Physical Exam Height 160 cm, 5 ft 3 in. Initial weight 61 kg, 135 lb. Initial BMI 23.91 kg/m Method ====== Transabdominal ultrasound. View: Sufficient ========= Rivera . Number of fetuses: 1 Dating ====== Date Details Gest. age SHANNAN Stated SHANNAN 38 w + 2 d 03/04/2025 Assigned dating based on stated SHANNAN, selected on 02/07/2025 38 w + 2 d 03/04/2025 General Evaluation Cardiac activity present. FHR 127 bpm. Presentation: cephalic Placenta: Placental site: anterior Amniotic Fluid Assessment === Amount of AF: mild polyhydramnios MVP 10.7 cm. LUZ 26.4 cm. Q1 10.7 cm, Q2 3.5 cm, Q3 6.9 cm, Q4 5.3 cm Biophysical Profile 2: breathing movements 2: Gross body movements 2: tone 2: Amniotic fluid volume NST: reactive 03/23 Biophysical profile score Non Stress Test NST interpretation: reactive. Test duration 40 min. Baseline FHR 130 bpm. Baseline variability: moderate. Accelerations: present. Decelerations: absent. Uterine activity: absent Growth Overview Exam date GA BPD (mm) HC (mm) AC (mm) FL (mm) HL (mm) EFW (g) 02/07/2025 36w 3d 89.4 54% 327.5 39% 317.4 39% 70.9 44% 62.7 70% 2838 43% Anatomy The following structures appear normal: Abdomen Stomach. Kidneys. Bladder. Impression ========= Here today for testing secondary to multiple co morbidities including AMA and chronic hypertension. Again there is no evidence of arrhythmia on today's ultrasound normal sinus rhythm via m-mode. Single, live, intrauterine at 38w 2d The amniotic fluid volume is mild polyhydramnios. The biophysical profile is reassuring 03/23. PAC's were not seen on today's exam Comment ======== Reassuring status BPP 10/10 there is mild polyhydramnios LUZ 26.4 cm MVP 10.7 cm. the increase in amniotic fluid may be a normal variant no necessarily pathological due to the dynamic nature of amniotic fluid volume. In the majority cases the cause is idiopathic. However in some cases it may be related to over production such as diabetes or obstructive such as GI (i.e. TE fistula ) or neurological swallowing. However none of these were noted. Increase in amniotic fluid has been associated with increased risk for malpresentation cord accident rupture membranes abruption labor and delivery and intrauterine demise. Therefore recommend polyhydramnios precautions. M-mode: Normal sinus rhythm no evidence of arrhythmia or PACs. No pericardial/ pleural effusions. ultrasound alone cannot detect all structural, genetic, or functional , placental, or maternal abnormalities Follow-up ======== As per patient, she has a repeat scheduled for 02/26/2025. Labor, polyhydramnios and preeclampsia precautions along with kick counts. Thank you for allowing us to partake in your patient's care. Coding ====== Diagnoses O36.8330: Maternal care for abnormalities of the heart rate or rhythm O10.013, I10: Pre-existing essential hypertension complicating , Essential (primary) hypertension Procedures 69881: Biophysical Profile W NST 45146: US Uterus Limited [facility] [employer] PACS Anatomical Region Laterality Modality Other 02/20/2025 11:1 6 AM CDT us Kassidy An MD [facility] ORDERABLES Edited Result - Final documented in this encounter Visit Diagnoses Diagnosis arrhythmia affecting , antepartum (HCC)- Primary Abnormality in heart rate/rhythm, antepartum condition or complication Fourth (HCC) state, incidental Multigravida of advanced maternal age in third trimester (HCC) 38 weeks gestation of (HCC) state, incidental 36 weeks gestation of (HCC) state, incidental documented in this encounter
--- OUTSIDE RECORDS SUMMARY | 2025-02-21 05:06 | XMS_ITS | Clinical Summary ---
Author Organization [facility] Address [address] [place] [address] Care Team Providers Care Locomotive Supervisor Name Role Phone Unavailable Primary Care Provider Unavailabl e Source Comments [facility],non-owned Affiliates and Associated Physician Practices is amultiple site organization consisting of ambulatory clinics and hospital sitesin [place], [place], [place] and [place]. This disclosure is being madepursuant to the Care Everywhere program and may not contain all information available regarding this patient. Last updated 18.[facility] [employer] Allergies No known active allergies Medications * Be aware that medications may not be up to date on this document. Alwaysverify current medications with the patient. metoprolol succinate XL 24hr (Toprol XL) 25 MG tablet Take 1 (one) tablet by mouth 2 times daily Active Active Problems Problem Noted Date Diagnosed Date Previous section complicating 02/12/2025 Hypertension affecting , antepartum 06/2024 Advanced maternal age in multigravida, third tri mester 02/12/2025 arrhythmia affecting , antepartum 02/12/2025 Estimated Date of Delivery Comme nts Yes 03/05/2025 Based on Ultraso und Encounters Date Type Department Care Team Description 02/20/2025 10:25 AM CDT - 02/20/2025 11:59 PM CDT Hospital Encounter [facility] Maternal & Care [address] [place] [id number] Freddy Holbrook DO DECK ENGINEER Discharge Disposition: Home or Self Care 02/13/2025 8:10 AM CDT - 02/13/2025 11:59 PM CDT Hospital Encounter [facility] [address] [place] [phone] Michael Islas MD Discharge Disposition: Home or Self Care 02/07/2025 1:25 PM CDT - 02/07/2025 11:59 PM CDT Hospital Encounter [facility] Care [address] [place] [address] Kassidy An MD Discharge Disposition: Home or Self Care 02/07/2025 1:22 PM CDT - 02/07/2025 1:24 PM CDT Hospital Encounter [facility] Care [address] [place] [address] Kassidy An MD Discharge Disposition: Home or Self Care from Last 3 Months Social History Tobacco Use Types Packs/Day Years Used Date Smoking Tobacco: Never Assessed Estimated Date of Delivery Comme nts Yes 03/05/2025 Based on Ultraso und Sex and Gender Information Value Date Recorded Sex Assigned at Not on file Legal Sex Female 5:34 AM BACK HANGER Gender Identity Not on file Sexual Orientation Not on file Last Filed Vital Signs Vital Sign Reading Time Taken Comments Blood Pressure 128/81 02/20/2025 11:23 AM CDT Pulse 107 02/20/2025 11:23 AM CDT Temperature - - Respiratory Rate - - Oxygen Saturation - - Inhaled Oxygen Concentration - - Weight 66.7 kg (147 lb) 02/07/2025 2:47 PM CDT Height - - Body Mass Index - - Plan of Treatment Health Maintenance Due Date Last Done Comments HIV SCREENING 2001 HEPATITIS C SCREENING 08/13/2004 DTAP/TDAP/TD VACCINES (1 - Tdap) 2005 HEPATITIS B VACCINE (1 of 3 - 19+ 3-dose series) 2005 PAP SMEAR 08/19/2007 HPV VACCINE (1 - 3-dose SCDM series) 2013 DEPRESSION SCREENING 06/14/2024 OB-ONE HOUR GLUCOSE 11/27/2024 OB-TDAP CURRENT 12/04/2024 OB-RHOGAM INJECTION 12/11/2024 OB-GROUP B STREP SCREEN 01/29/2025 COVID-19 VACCINE (1 - 2023-2 5 season) 2025 INFLUENZA VACCINE (#1) 2025 ZOSTER VACCINE (1 of 2) 2036 HIB VACCINE Aged Out No longer eligi ble based on patient's age to complete this topic MENINGOCOCCAL (Group B) VACC INE SHARED DECISION-MAKING Aged Out No longer eligibl e based on patient's age to complete this topic MENINGOCOCCAL GROUPS A/C/Y/W VACCINE Aged Out No longer eligible b ased on patient's age to complete this topic PNEUMOCOCCAL VACCINE Aged Out No long er eligible based on patient's age to complete this topic Respiratory Syncytial Virus (RSV) Vaccine Pt: or over 60 yrs (No Doses Required) Completed Procedures Procedure Name Priority Date/Time Associated Diagnosis Comments BIOPHYSICAL PROFILE W NST Routine 02/20/2025 11:16 AM CDT arrhythmia affecting , antepartum (HCC) Fourth (HCC) Multigravida of advanced maternal age in third trimester (HCC) 36 weeks gestation of (HCC) BIOPHYSICAL PROFILE W NST Routine 02/13/2025 9:10 AM CDT arrhythmia affecting , antepartum (HCC) Fourth (HCC) Multigravida of advanced maternal age in third trimester (HCC) 36 weeks gestation of (HCC) SONOGRAM - COMPLETE Routine 02/07/2025 1 :44 PM CDT arrhythmia affecting , antepartum (HCC) Fourth (HCC) Multigravida of advanced maternal age in third trimester (HCC) 36 weeks gestation of (HCC) from Last 3 Months Results * Biophysical Profile w NST (02/20/2025 11:16 AM CDT) Only the most recent of2 resultswithin the time period is included. Linked Results Indication ======== arrhythmia Resolved on 02/13 Ultrasound Exam Chronic hypertension (CHTN) complicating Advanced maternal age (AMA), multigravida History ====== OB History 4. Para 3 [id number] 1. live 2003. Gest. age 37 w [...] Method ====== Transabdominal ultrasound. View: Sufficient ========= Green . Number of fetuses: 1 Dating ====== [...] tone 2: Amniotic fluid volume NST: reactive 10/10 Biophysical profile score Non Stress Test NST [...] today's exam Comment ======== Reassuring status BPP 03/23 there is mild polyhydramnios LUZ 26.4 cm [...] hypertension complicating , Essential (primary) hypertension Procedures 37886: Biophysical Profile W NST 41295: [place] Uterus Limited [facility] PACS Anatomical Region Laterality Modality Other 02/20/2025 11:1 6 AM CDT Kassidy An MD [facility] ORDERABLES Edited Result - Final * Sonogram - Complete (02/07/2025 1:44 PM CDT) Linked Results Indication ======== arrhythmia Chronic hypertension (CHTN) complicating on Metoprolol 25 mg bid History ====== OB History 4. Para 3 [id number] 1. live 2003. Gest. age 37 w [...] Height 160 cm, 5 ft 3 in. Weight 67 kg, 148 lb. Initial weight 61 kg, 135 lb. BMI 26.22 kg/m . Initial BMI 23.91 kg/m . Weight gain 6 kg, 13 lb Method ====== Transabdominal ultrasound. View: Good view ========= Green . Number of fetuses: 1 Dating ====== Date Details Gest. age SHANNAN Stated SHANNAN 36 w + 3 d 03/04/2025 U/S 02/07/2025 based upon AC, BPD, Femur, HC 36 w + 2 d 03/05/2025 Assigned dating based on stated SHANNAN, selected on 02/07/2025 36 w + 3 d 03/04/2025 General Evaluation Cardiac activity present. FHR 140 bpm. Presentation: cephalic Placenta: Placental site: anterior Umbilical cord: Cord vessels: 3 vessel cord. Insertion site: normal insertion Amniotic fluid: Amount of AF: normal. MVP 6.7 cm. LUZ 16.9 cm. Q1 2.8 cm, Q2 6.7 cm, Q3 4.4 cm, Q4 3.0 cm Biometry BPD 89.4 mm 36w 1d 54% Hadlock HC 327.5 mm 37w 1d 39% Hadlock AC 317.4 mm 35w 5d 39% Hadlock Femur 70.9 mm 36w 2d 44% Hadlock Humerus 62.7 mm 36w 2d 70% Chele HC / AC 1.03 -/- Hadlock Weight Calculation: EFW 2,838 g 43% Hadlock EFW (lb,oz) 6 lb 4 oz EFW by Hadlock ([id number]) appropriate Growth Overview Exam date GA BPD (mm) HC (mm) AC (mm) FL (mm) HL (mm) EFW (g) 02/07/2025 36w 3d 89.4 54% 327.5 39% 317.4 39% 70.9 44% 62.7 70% 2838 43% Anatomy The following structures appear normal: Head / Neck Cranium. Thalami. Face Nasal bone. Heart / Thorax 4-chamber view. RVOT view. LVOT view. Situs. Ductal arch view. Interventricular septum. Right lung. Left lung. Diaphragm. Abdomen Cord insertion. Stomach. Kidneys. Bladder. Extremities / Skeleton Right arm. Right hand. Right leg. Right foot. The following structures could not be adequately visualized: Head / Neck Lateral ventricles. Choroid plexus. Midline falx. Cavum septi pellucidi. Cerebellum. Cisterna magna. Face Lips. Profile. Orbits. Heart / Thorax 3-vessel view. 4-pkozjy-wyguxre view. Aortic arch view. Bicaval view. Great vessels. Abdomen Genitals. Spine Cervical spine. Thoracic spine. Lumbar spine. Sacral spine. Extremities / Skeleton Left arm. Left hand. Left leg. Left foot. Non Stress Test NST interpretation: reactive. Test duration 20 min. Baseline FHR 125 bpm. Accelerations: present Biophysical Profile 2: breathing movements 2: Gross body movements 2: tone 2: Amniotic fluid volume NST: reactive 10/10 Biophysical profile score Maternal Structures Right Ovary Not visualized Appearance: Adnexa appears normal Left Ovary Not visualized Appearance: Adnexa appears normal Impression ========= Single, live intrauterine at 36w 3d The size is appropriate. The amniotic fluid volume is normal. The biophysical profile is 10/10. anatomic survey is limited at this late gestational age. PAC's are noted. There is no evidence of hydrops Follow-up ======== Weekly NSTs with BPPs are recommended. Close surveillance for preeclampsia. See separate MFM visit note. Coding ====== Diagnoses O36.8330: Maternal care for abnormalities of the heart rate or rhythm O10.013, I10: Pre-existing essential hypertension complicating , Essential (primary) hypertension Procedures 13866: US Preg Uterus Detailed 96459: [facility]ophysical [facility] P[facility] Anatomical Region Laterality Modality Other 02/07/2025 1:44 PM CDT Jose Luis Link MD [facility] ORDERABLES Edited Resu lt - Final from Last 3 Months Insurance [facility] Member Subscriber Plan / Payer (Ef fective 2025-Present) Name:Jillian Boles Relation to Subscriber:Self Name:Jillian Boles Payer ID:[id number] (NAIC) Group ID:Not on file Type:Medicaid Managed Care Address: [address] [address]
[2025-02-21 05:19] VITALS: BP 137/90; PULSE 106
[2025-02-21 05:31] VITALS: BP 126/84; PULSE 102
[2025-02-21] MEDS: LACTATED RINGERS 1,000 ML 999 ML IV CONT (05:36)
[2025-02-21] MEDS: ACETAMINOPHEN 500 MG TABLET 1000 MG PO (05:37)
[2025-02-21 05:46] VITALS: BP 131/88; PULSE 106
[2025-02-21 06:16] VITALS: BP 113/78; PULSE 108
[2025-02-21 06:31] VITALS: BP 122/76; PULSE 111
--- NOTE | 2025-02-22 11:05 | PM.OBTRLD ---
OB - Triage/Final Diagnosis Visit Information Date of evaluation: 02/21/25 Reason for evaluation: threatened labor Comments/Additional reasons for admission: I have assessed the risk for this patient, Jillian Boles, and determined that she would benefit from observation care.
== END 2025-02-21 06:41 | disposition home or self-care (01) ==
PROVIDERS: Admitting Provider Obstetrics & Gynecology; PCP Internal Medicine Infectious Disease; Visit Provider Obstetrics & Gynecology
DX: O47.1 False labor at or after 37 completed weeks of gestation (principal); Z3A.38 38 weeks gestation of pregnancy
CPT/HCPCS: A9270; G0378; G0379; J7120

== ENCOUNTER 2025-02-24 13:37 | Outpatient (CLI) | payer OTHER, SELFPAY ==
--- OUTSIDE RECORDS SUMMARY | 2025-02-24 13:40 | XMS_ITS | Clinical Summary ---
Author Organization [facility] Address [address] [place] [address] Care Team Providers Care Clinical Technologist Name Role Phone Unavailable Primary Care Provider Unavailabl e Source Comments [facility],non-owned Affiliates and Associated Physician Practices is amultiple site organization consisting of ambulatory clinics and hospital sitesin [place], [place], [place]. This disclosure is being madepursuant to the Care Everywhere program and may not contain all information available regarding this patient. Last updated 18.[facility] [employer] Allergies No known active allergies Medications * [...] - 02/20/2025 11:59 PM CDT Hospital Encounter [facility] Maternal & Care [address] [place] [id number] Freddy Holbrook DO PRACTICAL NURSE Discharge Disposition: Home or Self Care 02/13/2025 8:10 AM CDT - 02/13/2025 11:59 PM CDT Hospital Encounter [facility] Maternal & Care [address] [place] [id number] Michael Islas MD Discharge Disposition: Home or Self Care 02/07/2025 1:25 PM CDT - 02/07/2025 11:59 PM CDT Hospital Encounter [facility] Maternal & Care [address] [place] [address] Kassidy An MD Discharge Disposition: Home or Self Care 02/07/2025 1:22 PM CDT - 02/07/2025 1:24 PM CDT Hospital Encounter [facility] Maternal & Care [address] [place] [address] Kassidy An MD Discharge Disposition: Home or Self Care from Last 3 Months Social History Tobacco Use Types Packs/Day Years Used Date Smoking Tobacco: Never Assessed Estimated Date of Delivery Comme nts Yes 03/05/2025 Based on Ultraso und Sex and Gender Information Value Date Recorded Sex Assigned at Not on file Legal Sex Female 5:34 AM TRACK ANNOUNCER Gender Identity Not on file Sexual Orientation [...] History ====== OB History 4. Para 3 [id number] 1. live 2003. Gest. age 37 w [...] hypertension complicating , Essential (primary) hypertension Procedures 66910: Biophysical Profile W NST 04902: US Uterus Limited [employer] PACS Anatomical Region Laterality Modality Other 02/20/2025 11:1 6 AM CDT Kassidy An MD [facility] ORDERABLES Edited Result - Final * Sonogram - Complete (02/07/2025 1:44 PM CDT) Linked Results Indication ======== arrhythmia Chronic hypertension (CHTN) complicating on Metoprolol 25 mg bid History ====== OB History 4. Para 3 [id number] 1. live 2003. Gest. age 37 w [...] 6 lb 4 oz EFW by Hadlock ([id number]) appropriate Growth Overview Exam date GA BPD [...] Profile. Orbits. Heart / Thorax 3-vessel view. 7-crfjog-hhajwsy view. Aortic arch view. Bicaval view. Great [...] hypertension complicating , Essential (primary) hypertension Procedures 97290: US Preg Uterus Detailed 40116: Biophysical Profile [facility] P[facility] Anatomical Region Laterality Modality Other 02/07/2025 1:44 PM CDT Jose Luis Link MD [facility] ORDERABLES Edited Resu lt - Final from Last 3 Months Insurance [facility]
[2025-02-24 14:08] LABS: Hematocrit 31.9 % (37.0-47.0); Hemoglobin 10.4 g/dL (12.0-15.0); Mean Corpuscular HGB Conc 32.6 g/dl (32-36); Mean Corpuscular Hemoglobin 29.8 pg (26-34); Mean Corpuscular Volume 91.4 fl (80-100); Platelet Count Result 319 k/mm3 (150-375); Red Blood Count 3.49 M/mm3 (4.2-5.4); White Blood Count 8.3 K/mm3 (4.5-10.0)
[2025-02-24 15:04] LABS: Syphilis IgG/IgM Antibody Non-Reactive (Nonreactive)
--- NOTE | 2025-02-25 07:32 | PM.IMHP ---
H&P: HPI History of Present Illness Date/Time: 02/25/25 07:32 Chief Complaint: Term with previous section Narrative: A 39-year-old multiparous patient for repeat section. been complicated by a baby with late findings of arrhythmia was seen by Maternal- Medicine and reassured Review of Systems Review of Systems: Pertinent positives per HPI. Patient denies any fever, chills, rash, headache, visual changes, dizziness, cough, runny nose, sore throat, shortness of breath, chest pain, palpitations, nausea, vomiting, diarrhea, constipation, abdominal pain, or any urinary issues. [facility] Past Medical History Medical History Hypertension Family History Family History Mother Hypertension Social History Social History Smoking status: Never smoker Alcohol intake: never Substance use: never Lack of Transportation: No Lack of Food: Never True Current Housing: I Have Housing Concerned About Future Housing: No Difficulty Paying Gas/Electric Bills: No Difficulty Paying for Meds: No Currently Unemployed: No Education: Trade/Vocational Certificate Difficulty w/ Childcare or Family Care: No Spiritual care concerns: No Meds Home Medications and Allergies Home Medications ?Medication ?Instructions ?Recorded ?Confirmed ?Type metoprolol tartrate 25 mg tablet 25 mg PO BID 08/23/20 02/24/25 History magnesium oxide 400 mg (241.3 mg 400 mg DAILY 01/26/22 02/02/23 History magnesium) tablet doxylamine succinate 25 mg tablet 25 mg PO HS PRN nausea #30 tabs 07/10/24 02/24/25 Rx pyridoxine (vitamin B6) 25 mg 25 mg PO DAILY #30 tabs 07/10/24 02/24/25 Rx tablet Allergies Allergy/AdvReac Type Severity Reaction Status Date / Time No Known Allergies Allergy Verified 02/24/25 13:04 Exam Const: General: cooperative, healthy appearing, comfortable and average body habitus Orientation/consciousness: oriented to person, oriented to place and oriented to time HENMT: Head: normal to inspection Resp: Effort & Inspection: normal respiratory effort Cardio: Rate: regular rate Rhythm: regular rhythm Heart sounds: S1 normal heart sound present and S2 normal heart sound present GI: Inspection: normal to inspection (Gravid soft uterus) : External Female Exam: normal external appearance Speculum Exam - Vagina: normal appearance of the vagina Speculum Exam - Cervix: normal appearance of the cervix (Closed) H&P: Results Labs Labs: Short CBC 02/24/25 Range/Units 13:45 WBC 8.3 (4.5-10.0) K/mm3 Hgb 10.4 L (12.0-15.0) g/dL Hct 31.9 L (37.0-47.0) % Plt Count 319 (150-375) k/mm3 Assessment and Plan Assessment and plan (1) Term : Code(s): Z34.90 - Encounter for supervision of normal , unspecified, unspecified trimester Status: Acute (2) Previous section: Code(s): Z98.891 - History of uterine scar from previous surgery Status: Acute Plan Proceed with repeat low-transverse section
== END 2025-02-24 13:38 | disposition home or self-care (01) ==
LOC: ANHLAB 13:38
PROVIDERS: PCP Internal Medicine Infectious Disease; Visit Provider Obstetrics & Gynecology
DX: Z01.818 Encounter for other preprocedural examination (principal)
CPT/HCPCS: 36415; 85027; 86593; 86850; 86900; 86901

== ENCOUNTER 2025-02-26 05:42 | Inpatient (IN) | payer OTHER, SELFPAY ==
--- NOTE | 2025-02-25 07:34 | HP_ITS ---
This report was moved to the correct visit on 03/01/2025. The original report was signed by Jose Luis Liriano MD on 02/25/25 0734. H&P: HPI History of Present Illness Date/Time: 02/25/25 07:32 Chief Complaint: Term with previous section Narrative: A 39-year-old multiparous patient for repeat section. been complicated by a baby with late findings of arrhythmia was seen by Maternal- Medicine and reassured Review of Systems Review of Systems: Pertinent positives per HPI. Patient denies any fever, chills, rash, headache, visual changes, dizziness, cough, runny nose, sore throat, shortness of breath, chest pain, palpitations, nausea, vomiting, diarrhea, constipation, abdominal pain, or any urinary issues. [facility] Past Medical History Medical History Hypertension Family History Family History Mother Hypertension Social History Social History Smoking status: Never smoker Alcohol intake: never Substance use: never Lack of Transportation: No Lack of Food: Never True Current Housing: I Have Housing Concerned About Future Housing: No Difficulty Paying Gas/Electric Bills: No Difficulty Paying for Meds: No Currently Unemployed: No Education: Trade/Vocational Certificate Difficulty w/ Childcare or Family Care: No Spiritual care concerns: No Meds Home Medications and Allergies Home Medications ?Medication ?Instructions ?Recorded ?Confirmed ?Type metoprolol tartrate 25 mg tablet 25 mg PO BID 08/23/20 02/24/25 History magnesium oxide 400 mg (241.3 mg 400 mg DAILY 01/26/22 02/02/23 History magnesium) tablet doxylamine succinate 25 mg tablet 25 mg PO HS PRN nausea #30 tabs 07/10/24 02/24/25 Rx pyridoxine (vitamin B6) 25 mg 25 mg PO DAILY #30 tabs 07/10/24 5 Rx tablet Allergies Allergy/AdvReac Type Severity Reaction Status Date / Time No Known Allergies Allergy Verified 02/24/25 13:04 Exam Const: General: cooperative, healthy appearing, comfortable and average body habitus Orientation/consciousness: oriented to person, oriented to place and oriented to time HENMT: Head: normal to inspection Resp: Effort & Inspection: normal respiratory effort Cardio: Rate: regular rate Rhythm: regular rhythm Heart sounds: S1 normal heart sound present and S2 normal heart sound present GI: Inspection: normal to inspection (Gravid soft uterus) : External Female Exam: normal external appearance Speculum Exam - Vagina: normal appearance of the vagina Speculum Exam - Cervix: normal appearance of the cervix (Closed) H&P: Results Labs Labs: Short CBC 02/24/25 Range/Units 13:45 WBC 8.3 (4.5-10.0) K/mm3 Hgb 10.4 L (12.0-15.0) g/dL Hct 31.9 L (37.0-47.0) % Plt Count 319 (150-375) k/mm3 Assessment and Plan Assessment and plan (1) Term : Code(s): Z34.90 - Encounter for supervision of normal , unspecified, unspecified trimester Status: Acute (2) Previous section: Code(s): Z98.891 - History of uterine scar from previous surgery Status: Acute Plan Proceed with repeat low-transverse section Please be advised this is a medical document. It is intended for kiqz-qq-qxsn communication. It is written in medical language and may contain unfamiliar abbreviations or verbiage. Medical documents are intended to carry relevant information, facts as evident, and the clinical opinion of the practitioner at the time of the encounter. This report may have been done utilizing a voice recognition system. Attempts have been made to correct errors. However, there may be uncorrected grammatical, spelling, and recognition errors present. The file time of this note does not necessarily represent the time the patient was seen. Report Initialized date/time: Jose Luis Liriano MD 02/25/2534 Electronically signed by: Jose Luis Liriano MD 02/25/25 0734
[2025-02-26] VITALS (65 sets, daily range): BP systolic 106–174; BP diastolic 72–151; PULSE 64–154; RESP 14–16; TEMP 36.2–36.5; O2SAT 97–100; BMI 26.6
--- OUTSIDE RECORDS SUMMARY | 2025-02-26 01:12 | XMS_ITS | Clinical Summary ---
Author Organization [facility] Address [address] [place] [address] Care Team Providers Care Filemaker Developer Name Role Phone Unavailable Primary Care Provider Unavailabl e Source Comments [facility],non-owned Affiliates and Associated Physician Practices is amultiple site organization consisting of ambulatory clinics and hospital sitesin [place], [place], [place] and [place]. This disclosure is being madepursuant to the Care Everywhere program and may not contain all information available regarding this patient. Last updated 18.[facility] [employer] Allergies No known active allergies Medications * [...] - 02/20/2025 11:59 PM CDT Hospital Encounter [facility] [address] [place] [id number] Freddy Holbrook DO TOOL SMITH Discharge Disposition: Home or Self Care 02/13/2025 8:10 AM CDT - 02/13/2025 11:59 PM CDT Hospital Encounter [facility] [address] [place] [id number] Michael Islas MD Discharge Disposition: Home or Self Care 02/07/2025 1:25 PM CDT - 02/07/2025 11:59 PM CDT Hospital Encounter [facility] [address] [place] [address] Kassidy An MD Discharge Disposition: Home or Self Care 02/07/2025 1:22 PM CDT - 02/07/2025 1:24 PM CDT Hospital Encounter [facility] [address] [place] [address] Kassidy An MD Discharge Disposition: Home or Self Care from Last 3 Months Social History Tobacco Use Types Packs/Day Years Used Date Smoking Tobacco: Never Assessed Estimated Date of Delivery Comme nts Yes 03/05/2025 Based on Ultraso und Sex and Gender Information Value Date Recorded Sex Assigned at Not on file Legal 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 Para 3 [id number] 1. live 2003. Gest. age 38 w [...] hypertension complicating , Essential (primary) hypertension Procedures 18795: Biophysical Profile W NST 33135: US Uterus Limited [place] PACS Anatomical Region Laterality Modality Other 02/20/2025 11:1 6 AM CDT Kassidy An MD [facility] ORDERABLES Edited Result - Final * Sonogram - Complete (02/07/2025 1:44 PM CDT) Linked Results Indication ======== arrhythmia Chronic hypertension (CHTN) complicating on Metoprolol 25 mg bid History ====== OB History 4. Para 3 [id number] 1. live 2003. Gest. age 38 w [...] 6 lb 4 oz EFW by Hadlock (TCT-IQ-WH-FL) appropriate Growth Overview Exam date [place] BPD [...] Profile. Orbits. Heart / Thorax 3-vessel view. 3-ygythm-mexszcu view. Aortic arch view. Bicaval view. Great [...] hypertension complicating , Essential (primary) hypertension Procedures 58314: US Preg Uterus Detailed 97503: Biophysical Profile [facility] Anatomical [facility] Laterality Modality Other 02/07/2025 1:44 PM CDT Jose Luis Link MD [facility] ORDERABLES Edited Resu lt - Final from Last 3 Months Insurance [facility]
--- NOTE | 2025-02-26 04:32 | WPDHPUPDATE1 ---
History and Physical Update Update Date/Time: 02/26/25 04:32 History and Physical has been reviewed, including an updated exam of the patient. There are NO changes in the patient's condition. Risks, benefits, and alternatives have been discussed and questions answered. Patient agrees to proceed with procedure.
--- NOTE | 2025-02-26 04:39 | WPDHPUPDATE1 ---
History and Physical Update Update Date/Time: 02/26/25 04:39 History and Physical has been reviewed, including an updated exam of the patient. There are NO changes in the patient's condition. Risks, benefits, and alternatives have been discussed and questions answered. Patient agrees to proceed with procedure.
--- NOTE | 2025-02-26 06:07 | LDADM ---
This patient, Jillian Boles, was admitted to Labor/Delivery/Recovery 120 on 02/26/25 at 05:42. Plans for labor, pain management and were discussed with patient. Patient/family oriented to hospital policies and general routines including ID bracelet, bed and alarms, visiting hours, pain management, procedures, bathroom and other care routines, personal items, smoking policy, room service/diet and guest tray routines, infant security routines, and visiting hours. Patient/Family are encouraged to report perceived risks to care and to ask questions if they do not understand what they are told or what they should do. See OBIX for further documentation.
[2025-02-26] MEDS: LACTATED RINGERS 1,000 ML 999 ML IV CONT ×2 (06:15→07:10)
[2025-02-26] MEDS: ACETAMINOPHEN 500 MG TABLET 1000 MG PO ×3 (06:20→18:24)
[2025-02-26] MEDS: FAMOTIDINE 20 MG/2 ML VIAL IV PUSH (07:14)
[2025-02-26] MEDS: ONDANSETRON INJ 4 MG/2 ML VIAL IV PUSH ×2 (07:14→12:24)
[2025-02-26] MEDS: ceFAZolin 2 GM in SODIUM CHLORIDE 0.9% IV 50 ML 100 ML IVPB (07:26)
--- NOTE | 2025-02-26 08:18 | PM.DS ---
DS: Admitting Diagnosis Discharge Date 02/28/2025 Admitting Diagnosis Term /previous section DS: Discharge Diagnosis Discharge Diagnosis (1) Term : Code(s): Z34.90 - Encounter for supervision of normal , unspecified, unspecified trimester Status: Acute (2) Previous section: Code(s): Z98.891 - History of uterine scar from previous surgery Status: Acute DS: Summary Hospital Course Reason for hospitalization: Patient underwent low-transverse section repeat on 02/27/2020 Hospital Course: Patient's hospital course unremarkable. She remained afebrile. She was up, voiding without difficulty, eating regular diet generally without complaints. Patient was ambulating Time Spent with Patient Time attestation: Total time spent providing and/or coordinating discharge services: Exam Const: General: cooperative, healthy appearing, comfortable and average body habitus Orientation/consciousness: oriented to person, oriented to place and oriented to time HENMT: Head: normal to inspection Resp: Effort & Inspection: normal respiratory effort Cardio: Rate: regular rate Rhythm: regular rhythm Heart sounds: S1 normal heart sound present and S2 normal heart sound present GI: Inspection: normal to inspection (Gravid soft uterus) : External Female Exam: normal external appearance Speculum Exam - Vagina: normal appearance of the vagina Speculum Exam - Cervix: normal appearance of the cervix (Closed) Discharge Plan Discharge Attending physician on discharge: Jose Luis Liriano Discharging Clinician: Jose Luis Liriano Patient Disposition: Home Activity: october shower, no straining and pelvic rest Diet: heart healthy Wound Care Instructions: follow printed instructions Patient Language: Finnish Stand Alone Forms: General Discharge Instructions Follow-up/Referrals: Jose Luis Liriano MD [Physician, DRIVER'S LICENSE REVIEWING OFFICER] Discharge Medications: New hydrocodone-acetaminophen 5-325 mg tablet 1 tablet PO Q4H PRN (Reason: pain) Qty: 20 0RF Continued metoprolol tartrate 25 mg tablet 25 mg PO BID magnesium oxide 400 mg (241.3 mg magnesium) tablet 400 mg DAILY prenat.vits,jasmine,agu-bkyh-njcdm Tablet 1 tablet PO DAILY doxylamine succinate 25 mg tablet 25 mg PO HS PRN (Reason: nausea) Qty: 30 0RF pyridoxine (vitamin B6) 25 mg tablet 25 mg PO DAILY Qty: 30 0RF Date of admission: 02/26/25 05:42 Primary Care Provider: Bella,Maia Admitting Provider: Jose Luis Liriano Attending physician on admission: Jose Luis Liriano Condition: Stable
--- NOTE | 2025-02-26 08:20 | W.PM.OBCSD ---
OB - Delivery Note Procedure Delivery date: 02/26/25 Pre-op diagnosis: Previous Delivery Post-op Diagnosis: Same Induction method: None Delivery monitor: External FHT Prior to decision for section, ACOG/SMFM labor guidelines were considered and discussed with the patient and staff. Decision made to proceed with the section.: Yes Procedure Performed: Repeat Surgeon: Jose Luis Escudero MD Anesthesia type: Spinal Description of Procedure/Findings: Patient was admitted for repeat low-transverse section. After obtaining informed consent she was taken back prepped and draped in normal sterile fashion placed in the supine position under excellent spinal anesthetic the abdomen was entered in Pfannenstiel fashion progressive layers of fascia. Fascia incised midline carried in upward out fashion bilaterally. Underlying muscles sharply dissected. Parietal peritoneum oblique a clamps and by sharp dissection. This was carried superiorly and inferiorly dome of the bladder. Bladder flap formed. A bladder blade returned. A low transverse incision made head delivered in MARIAA position. Anterior posterior shoulder delivered spontaneously. Cord clamped 2 cut true knot was noted in 2 fibroids. To put baby passed off the table given Apgars of 8 [id number] 9 [id number]. Cord blood was drawn. Placenta delivered intact manually. Uterus delivered on the abdomen wrapped in moist towel. After assuring no membranes or debris remained in the uterus, the uterus was closed continuous running locking 0 Vicryl from lateral edge to lateral edge. This followed by 2nd imbricating running locking 0 Vicryl from lateral edge to lateral edge. Hemostasis was assured. The 2 small fibroids were seen on the uterus and normal-appearing ovaries and tubes bilaterally. The uterus returned the abdomen. The hysterotomy incision inspected 1 last time noted be hemostatic. The fascia closed with continuous running 0 Vicryl from lateral edge to midline bilaterally. Irrigation subcutaneous layer and the skin closed with 4 Monocryl and glue. QBL was 350cc. All sponge, needle, instrument counts were correct. There were no immediate complications noted Estimated Blood Loss: 350 Drains: No Packing: No Pathology: None sent Complications: No immediate complications Condition: Stable Disposition: Floor Baby Date of : 02/26/25 Time of : 07:59 Gestational Age by Date: 39 Infant gender: Female Weight (pounds): 7 Weight (ounces): 2 presentation: vertex position: Right Occiput Anterior Placenta delivery description: Manual Removal Cord Vessel Description: 3 Vessels score one minute: 8 score five minutes: 9
[2025-02-26] MEDS: KETOROLAC 15 MG/ML VIAL (*BKC) IV PUSH ×3 (08:40→18:23)
[2025-02-26] MEDS: LIDOCAINE 5% PATCH 1 PATCH TRANSDERM (10:22)
--- NOTE | 2025-02-26 10:33 | OBPPTRN ---
Patient transferred to post room #288 via stretcher. Support person present. Oriented to unit, room, information board, rooming in, admission packet and security measures. Patient verbalizes understanding.
[2025-02-26] MEDS: DEXTROSE 5%/0.45% SOD CHL 1,000 ML 125 ML IV CONT (12:23)
[2025-02-26] MEDS: SIMETHICONE 80 MG TAB.CHEW PO ×2 (12:28→18:24)
--- NOTE | 2025-02-26 16:45 | PC.NURSE ---
Introductions were made, then consulted with patient to assess needs related to . Discussed with mother her?plans to feed?her and the?experience so far. She says that she tries to latch baby at each feeding but baby is not latching well. She is giving formula and states that she will continue to try at breast regularly. She feels like baby takes the bottle well. Resources provided for inpatient and outpatient services with the feeding sheet, mom/baby guide and name written on the communication board. Mother voiced understanding of information and will call if there is a request for assistance. Reported to the Primary RN.
[2025-02-26] MEDS: DOCUSATE SODIUM 100 MG CAPSULE PO (18:24)
[2025-02-26] MEDS: METOPROLOL TARTRATE 25 MG TABLET PO (21:43)
[2025-02-27] VITALS (8 sets, daily range): BP systolic 106–119; BP diastolic 66–85; PULSE 89–104; RESP 15–16; TEMP 36.5–37.7; O2SAT 99–100
[2025-02-27] MEDS: ACETAMINOPHEN 500 MG TABLET 1000 MG PO ×4 (01:34→21:16)
[2025-02-27] MEDS: KETOROLAC 15 MG/ML VIAL (*BKC) IV PUSH (01:34)
[2025-02-27 04:34] LABS: Hematocrit 27.1 % (37.0-47.0); Hemoglobin 8.6 g/dL (12.0-15.0); Immature Granulocyte Percent A 0.5 % (0-0.5); Lymphocytes Absolute Auto 1.68 K/mm3 (0.9-3.2); Mean Corpuscular HGB Conc 31.7 g/dl (32-36); Mean Corpuscular Hemoglobin 29.9 pg (26-34); Mean Corpuscular Volume 94.1 fl (80-100); Nucleated Red Blood Cells Absolute Auto 0.000 K/mm3 (0.0-0.012); Nucleated Red Blood Cells Perc 0.0 % (0.0-0.2); Platelet Count Result 286 k/mm3 (150-375); Red Blood Count 2.88 M/mm3 (4.2-5.4); White Blood Count 12.9 K/mm3 (4.5-10.0)
--- NOTE | 2025-02-27 06:58 | P.PNOB_ITS ---
OB - PN: Subj Subjective Date/time seen: 02/27/25 06:58 Patient comments: no complaints, pain well controlled, tolerating diet and flatus present [place] baby status: doing well OB - PN: Obj Data Labs 02/27/25 03:50 Labs: Laboratory Results - last 24 hr 02/27/25 03:50 WBC 12.9 H RBC 2.88 L Hgb 8.6 L Hct 27.1 L MCV 94.1 MCH 29.9 MCHC 31.7 L RDW 13.6 Plt Count 286 MPV 10.4 Immature Gran % (Auto) 0.5 Neut % (Auto) 77.3 H Lymph % (Auto) 13.0 L [place] % (Auto) 7.8 Eos % (Auto) 1.2 Baso % (Auto) 0.2 Lymph # (Auto) 1.68 [place] # (Auto) 1.0 H Eos # (Auto) 0.2 Baso # (Auto) 0.0 Abs Immat Gran (auto) 0.06 H Absolute Neuts (auto) 10.0 H Absolute Nucleated RBC 0.000 Nucleated RBC % 0.0 OB - PN A/P Assessment and Plan (1) Term : Code(s): Z34.90 - Encounter for supervision of normal , unspecified, unspecified trimester Status: Acute (2) Previous section: Code(s): Z98.891 - History of uterine scar from previous surgery Status: Acute Plan routine care. start iron Time Spent With Patient Time: Total time spent is greater than 50% in coordination of care (as documented) at patient's floor/unit and/or counseling patient: Review of Systems 2 Review of Systems: Pertinent positives per HPI. Patient denies any fever, chills, rash, headache, visual changes, dizziness, cough, runny nose, sore throat, shortness of breath, chest pain, palpitations, nausea, vomiting, diarrhea, constipation, abdominal pain, or any urinary issues. Exam 2 Const: General: cooperative, healthy appearing, comfortable and average body habitus Orientation/consciousness: oriented to person, oriented to place and oriented to time HENMT: Head: normal to inspection Resp: Effort & Inspection: normal respiratory effort Cardio: Rate: regular rate Rhythm: regular rhythm Heart sounds: S1 normal heart sound present and S2 normal heart sound present GI: Inspection: normal to inspection (Gravid soft uterus) : External Female Exam: normal external appearance Speculum Exam - Vagina: normal appearance of the vagina Speculum Exam - Cervix: normal appearance of the cervix (Closed)
[2025-02-27] MEDS: DOCUSATE SODIUM 100 MG CAPSULE PO ×2 (07:39→17:42)
[2025-02-27] MEDS: MULTIVIT/MIN/PREN/FOL AC/IRON TABLET 1 TAB PO (07:39)
[2025-02-27] MEDS: IBUPROFEN 600 MG TABLET PO ×3 (07:39→21:15)
[2025-02-27] MEDS: SIMETHICONE 80 MG TAB.CHEW PO ×3 (07:39→17:43)
--- NOTE | 2025-02-27 07:50 | WPDANLDPN2 ---
Anes-Prog Note L&D Date/Time: 02/27/25 07:50 Comfortable throughout: section Neuraxial method: spinal Epidural/Spinal procedure site: clean & non-tender Neuro status: Neuro function grossly intact. Cardiovascular status: normal Respiratory status: normal Airway patency: baseline Mental status: baseline Post-Op hydration status: normal Vital Signs: Last Vital Signs Temp 36.6 C 02/27/25 00:45 Pulse 104 H 02/27/25 00:45 Resp 15 02/27/25 00:45 BP 119/76 02/27/25 00:45 Pulse Ox 99 02/27/25 00:45 O2 Del Method Room Air 02/27/25 00:10 Pain score (VAS): 0 I/O: Intake & Output 02/26/25 02/26/25 02/27/25 15:59 23:59 07:59 Intake Total 50 350 Output Total 184 663 9431 Balance -925 0 -1250 Post-procedural complaints: none Patient feedback: Patient satisfied with anesthetic care.
--- NOTE | 2025-02-27 07:51 | WPDANLDNPN2 ---
Anes-Prog Note L&D-Neuraxial Date/Time: 02/27/25 07:51 Neuraxial medications: intrathecal PF morphine Opiod-related complaints: none Patient feedback: Patient satisfied with post-operative pain management.
[2025-02-27] MEDS: LIDOCAINE 5% PATCH 1 PATCH TRANSDERM (12:11)
--- NOTE | 2025-02-27 16:30 | PC.NURSE ---
Breast pump provided due to [maternal request]. She is offering the breast to baby at most feedings but hasn't had much success with latching. Patient has not received an insurance pump yet so a Medela Pump in Style is provided. Instructions given on cleaning, care, usage, that there should be no pain, pumping schedule for milk production, collection, and storage of human milk. Patient was assessed for correct placement, flange size (27mm provided), to pump every 3 hours (8 times in 24 hours) 1-2 times at night. Patient is already signed up for a [facility] appointment and does not need a referral.?Mother voiced understanding of the education shared along with mom/baby guide and the pump measurement, flange fit handout for additional resource information. Reported to the Primary RN.
[2025-02-27] MEDS: oxyCODONE HCL (*CRX) 5 MG TAB IR PO (17:45)
[2025-02-27] MEDS: METOPROLOL TARTRATE 25 MG TABLET PO (21:14)
[2025-02-28] MEDS: ACETAMINOPHEN 500 MG TABLET 1000 MG PO (05:05)
[2025-02-28] MEDS: IBUPROFEN 600 MG TABLET PO (05:06)
--- NOTE | 2025-02-28 07:05 | P.PNOB_ITS ---
OB - PN: Subj Subjective Date/time seen: 02/28/25 07:05 Patient comments: no complaints, pain well controlled, tolerating diet and flatus present baby status: doing well OB - PN: Obj Data Labs 02/27/25 03:50 OB - PN A/P Assessment and Plan (1) Term : Code(s): Z34.90 - Encounter for supervision of normal , unspecified, unspecified trimester Status: Acute (2) Previous section: Code(s): Z98.891 - History of uterine scar from previous surgery Status: Acute Plan home Time Spent With Patient Time: Total time spent is greater than 50% in coordination of care (as documented) at patient's floor/unit and/or counseling patient: Review of Systems 2 Review of Systems: Pertinent positives per HPI. Patient denies any fever, chills, rash, headache, visual changes, dizziness, cough, runny nose, sore throat, shortness of breath, chest pain, palpitations, nausea, vomiting, diarrhea, constipation, abdominal pain, or any urinary issues. Exam 2 Const: General: cooperative, healthy appearing, comfortable and average body habitus Orientation/consciousness: oriented to person, oriented to place and oriented to time HENMT: Head: normal to inspection Resp: Effort & Inspection: normal respiratory effort Cardio: Rate: regular rate Rhythm: regular rhythm Heart sounds: S1 normal heart sound present and S2 normal heart sound present GI: Inspection: normal to inspection (Gravid soft uterus) : External Female Exam: normal external appearance Speculum Exam - Vagina: normal appearance of the vagina Speculum Exam - Cervix: normal appearance of the cervix (Closed)
[2025-02-28 07:37] VITALS: BP 124/79; PULSE 100; RESP 18; TEMP 37.2; O2SAT 98
--- NOTE | 2025-02-28 08:48 | PC.NURSE ---
On 02/28/25, the student, Derek Hinton, provided care and completed [facility] documentation on this patient. I have reviewed the student's documentation and agree with the findings.
[2025-02-28] MEDS: MULTIVIT/MIN/PREN/FOL AC/IRON TABLET 1 TAB PO (09:12)
[2025-02-28] MEDS: SIMETHICONE 80 MG TAB.CHEW PO (09:12)
[2025-02-28] MEDS: oxyCODONE HCL (*CRX) 5 MG TAB IR PO (09:13)
[2025-02-28] MEDS: METOPROLOL TARTRATE 25 MG TABLET PO (09:13)
--- NOTE | 2025-02-28 10:29 | PC.NURSE ---
Introductions were made, communication board updated. Discussed with patient her experience so far. Patient states that has not been going well and she is unsure if she would like to continue putting infant to breast. Infant has been supplemented with formula for most feedings. Patient does have a breastpump at the bedside that she has been properly educated on using. She states that when she is pumping she is not getting any milk. Educated patient on the importance of being consisitent and pumping every 3 hours to encourage milk production. Patient states understanding and will call RN if any assistance is needed. Primary RN updated.
== END 2025-02-28 12:45 | disposition home or self-care (01) | DRG 540 ==
LOC: ANHLDR 05:47 → ANHOB2 10:36
PROVIDERS: Admitting Provider Obstetrics & Gynecology; PCP Internal Medicine Infectious Disease; Visit Provider Obstetrics & Gynecology
PROC: 10D00Z1 Extraction of Products of Conception, Low, Open Approach (ICD-10-PCS; CPT 59514; principal; 2025-02-26 07:30)
DX: O34.211 Maternal care for low transverse scar from previous cesarean delivery (principal); Z3A.39 39 weeks gestation of pregnancy; Z37.0 Single live birth; O99.824 Streptococcus B carrier state complicating childbirth; O69.2XX0 Labor and delivery complicated by other cord entanglement, with compression, not applicable or unspecified
CPT/HCPCS: 36415; 85025; J0690; A9270; J1885; J2274; J2371; J2405; J2590; J7120